=== PATIENT | male | born 1950 | race Caucasian/White ===

== ENCOUNTER 2017-09-14 21:55 | Inpatient (IN) ==
--- NOTE | 2017-09-14 23:29 | Emergency Department Note ---
Disposition Clinical Impression: Elevated troponin Pneumonia Qualifiers: Pneumonia type: due to unspecified organism Laterality: unspecified laterality Lung location: unspecified part of lung Qualified Code(s): J18.9 - Pneumonia, unspecified organism Disposition: Admitted As Inpatient Condition: Good [facility]Primary Care Provider[facility] - Forms: ED Satisfaction Letter General Adult HPI - General Chief complaint: ED Shortness of Breath/Dyspnea Stated complaint: elevated Trop Time Seen by Provider: 09/14/17 22:30 Source: patient Limitations: no limitations Nursing Notes Reviewed: Yes Vital Signs Reviewed: Yes - History of Present Illness HPI Narrative: 66-year-old female with a complaint of dyspnea and chest discomfort. He is not currently experiencing chest pain. He went to the [facility] who found he had an elevated troponin and symptoms emergency department. He has a past medical history of coronary arterial disease with a quadruple bypass a few years ago. He also does smoke. He also has a history of hypertension, COPD, diabetes, hyperlipidemia. He does take Plavix and aspirin. Pain Scale: 0 Consistency: constant Improves with: nothing Worsens with: other (exertion) Associated symptoms: Reports: denies other symptoms Treatments Prior to Arrival: none - Related Data Allergies Allergy/AdvReac Type Severity Reaction Status Date / Time No Known Allergies Allergy Verified 09/14/17 22:03 All systems ED: reviewed and negative except as stated. Constitutional: Denies: fever ENT ED: Denies: throat pain Cardiovascular: Reports: chest pain Respiratory: Reports: cough, dyspnea Gastrointestinal: Denies: abdominal pain Musculoskeletal: Denies: back pain Integumentary: Denies: rash Past Medical History - Past Medical History Medical history: Reports: COPD, coronary artery disease, diabetes, GERD, hyperlipidemia, hypertension, myocardial infarction Psychiatric history: Reports: depression, schizophrenia - Social History Smoking Status: Current every day smoker Alcohol use: Reports: none Drug use: Reports: none Physical Exam - General Limitations: no limitations General appearance: alert, in no apparent distress - Head Head exam: atraumatic - Eye Eye exam: Present: normal appearance, PERRL - ENT ENT exam: normal exam - Neck Neck exam: Present: normal inspection - Chest Chest inspection: Present: normal inspection - Respiratory Respiratory exam: Present: other (coarse lung sounds bilaterally). Absent: respiratory distress - Cardiovascular Cardiovascular exam: Present: regular rate, normal rhythm - Abdominal Exam Abdominal exam: Present: soft, Non-Tender - Extremities Exam Extremities exam: Present: normal inspection - Neurological Exam Neurological exam: Present: alert, oriented X3 - Psychiatric Psychiatric exam: Present: normal affect, normal mood - Skin Skin exam: Present: warm, dry Course Course Narrative: [facility] Trop[facility] was elevated. EKG shows normal sinus rhythm without ST deviation. We repeated lab work urine did show a troponin elevation of 0.07. His chest x- ray showing pneumonia. Troponin elevation may be due to his pneumonia. As such I will initially treat him with Levaquin and admitted to the hospital for serial troponin Vital Signs Temperature 98.1 F 09/14/17 21:57 Pulse Rate 95 09/14/17 21:57 Respiratory Rate 20 09/14/17 21:57 Blood Pressure 107/68 09/14/17 21:57 O2 Sat by Pulse Oximetry 95 09/14/17 21:57 Temperature 98.1 F 09/14/17 21:57 Pulse Rate 76 09/15/17 01:47 Respiratory Rate 14 09/15/17 01:47 Blood Pressure 130/52 09/15/17 01:47 O2 Sat by Pulse Oximetry 97 09/15/17 01:47 Oxygen Delivery Oxygen Delivery Nasal Cannula Medical Decision Making - Medical Records Medical records reviewed: Yes I reviewed the patient's medical records. - Lab Data Lab results reviewed: Yes I reviewed the patient's lab results. Result diagrams: 09/15/17 00:05 09/15/17 00:05 Lab Results 09/15/17 09/15/17 09/15/17 Range/Units 00:05 00:05 00:05 WBC 15.5 H (4.3-11.1) K/mcL RBC 3.57 L (4.19-5.50) M/mcL Hgb 10.9 L (12.9-16.9) g/dL Hct 32.2 L (37.5-50.1) % MCV 90.2 (83.0-100.0) fL MCH 30.5 (28.0-33.3) pg MCHC 33.9 (31.6-35.5) g/dL RDW 14.4 (11.5-14.5) % Plt Count 233 (140-400) K/mcL MPV 11.0 (9.4-12.4) fL Immature Gran % 0.9 (0-4) % Seg Neutrophils % 90.7 % Lymphocytes % 3.9 % Monocytes % 4.3 % Eosinophils % 0.0 % Basophils % 0.2 % Neutrophils # 14.0 H (1.6-8.9) K/mcL Lymphocytes # 0.6 (0.6-4.6) K/mcL Monocytes # 0.7 (0.0-1.3) K/mcL Eosinophils # 0.0 (0.0-0.6) K/mcL Basophils # 0.0 (0.0-0.2) K/mcL Nucleated RBCs/100 WBC 0.1 H (0) /100 WBC Sodium 131 L (136-145) mEq/L Potassium 4.1 (3.5-4.5) mEq/L Chloride 100 (98-109) mEq/L Carbon Dioxide 19 (19-29) mEq/L BUN 16 (8-26) mg/dL Creatinine 0.73 (0.72-1.25) mg/dL Est GFR ( Amer) > 60 (> 60) Est GFR (Non-Af Amer) > 60 (> 60) BUN/Creatinine Ratio 22 (6-26) Glucose 170 H (70-99) mg/dL Calculated Osmolality 277 L (280-300) Calcium 9.3 (8.6-10.8) mg/dL Troponin I 0.07 H* (0-0.03) ng/mL B-Natriuretic Peptide (0-100) pg/mL 09/15/17 Range/Units 00:05 WBC (4.3-11.1) K/mcL RBC (4.19-5.50) M/mcL Hgb (12.9-16.9) g/dL Hct (37.5-50.1) % MCV (83.0-100.0) fL MCH (28.0-33.3) pg MCHC (31.6-35.5) g/dL RDW (11.5-14.5) % Plt Count (140-400) K/mcL MPV (9.4-12.4) fL Immature Gran % (0-4) % Seg Neutrophils % % Lymphocytes % % Monocytes % % Eosinophils % % Basophils % % Neutrophils # (1.6-8.9) K/mcL Lymphocytes # (0.6-4.6) K/mcL Monocytes # (0.0-1.3) K/mcL Eosinophils # (0.0-0.6) K/mcL Basophils # (0.0-0.2) K/mcL Nucleated RBCs/100 WBC (0) /100 WBC Sodium (136-145) mEq/L Potassium (3.5-4.5) mEq/L Chloride (98-109) mEq/L Carbon Dioxide (19-29) mEq/L BUN (8-26) mg/dL Creatinine (0.72-1.25) mg/dL Est GFR ( Amer) (> 60) Est GFR (Non-Af Amer) (> 60) BUN/Creatinine Ratio (6-26) Glucose (70-99) mg/dL Calculated Osmolality (280-300) Calcium (8.6-10.8) mg/dL Troponin I (0-0.03) ng/mL B-Natriuretic Peptide 220 H (0-100) pg/mL - Radiology Data Radiology results reviewed: Yes I reviewed the patient's radiology results. - EKG Data EKG #1 EKG attestation: Yes I reviewed and interpreted this EKG. EKG shows normal: sinus rhythm Rate: normal Rhythm: NSR Interpretation: no acute changes Attestation Statement - Attestation Attestation: I, Siva Becker MD, personally evaluated this patient and discussed their management with the resident physician. I reviewed the resident's note and agree with the documented findings, medical decision making, and plan of care. 66-year-old male transferred here from the [facility] for an elevated troponin. Patient states he had a fall 4 days ago and was seen here at that time. Since then he has had some increasing shortness of breath and productive cough with clear sputum. No definite fever. Some intermittent chest pain. On examination patient is a well-developed well-nourished elderly male in no acute distress. He is alert and oriented 3. There is no cyanosis or diaphoresis. Breath sounds are decreased bilaterally with some right mid lung rales. Heart regular rate and rhythm. Abdomen is soft and nontender with normal bowel sounds. Labs reviewed. Troponin 0.07. Chest x-ray shows multifocal bilateral pneumonia. EKG shows a sinus rhythm with a rate of 94 in no acute ischemic changes. No significant change from prior EKG. The hospitalist, Dr. Santiago, was consulted and accepted admission of the patient.
[2017-09-15 00:32] LABS: Basophils % 0.2 %; Hematocrit 32.2 % (37.5-50.1); Hemoglobin 10.9 g/dL (12.9-16.9); Immature Granulocytes % 0.9 % (0-4); Lymphocytes # 0.6 K/mcL (0.6-4.6); Lymphocytes % 3.9 %; Mean Corpuscular HGB Conc 33.9 g/dL (31.6-35.5); Mean Corpuscular Hemoglobin 30.5 pg (28.0-33.3); Mean Corpuscular Volume 90.2 fL (83.0-100.0); Monocytes # 0.7 K/mcL (0.0-1.3); Monocytes % 4.3 %; Nucleated Red Blood Cells 0.1 /100 WBC (0); Platelet Count 233 K/mcL (140-400); Red Blood Count 3.57 M/mcL (4.19-5.50); Red Cell Distribution Width 14.4 % (11.5-14.5); Segmented Neutrophils % 90.7 %
[2017-09-15 00:43] LABS: BUN/Creatinine Ratio 22 (6-26); Blood Urea Nitrogen 16 mg/dL (8-26); Calcium 9.3 mg/dL (8.6-10.8); Carbon Dioxide 19 mEq/L (19-29); Chloride 100 mEq/L (98-109); Glucose 170 mg/dL (70-99); Osmolality,Calculated 277 (280-300); Potassium 4.1 mEq/L (3.5-4.5); Sodium 131 mEq/L (136-145); eGFR For African Americans > 60 (> 60); eGFR For Non-African Americans > 60 (> 60)
[2017-09-15] MEDS ORDERED: Levofloxacin 750 MG/150 ML 750 MG/150 ML BAG IVPB ONE (01:17)
[2017-09-15] MEDS ORDERED: *HR* Heparin 5,000 UNIT/ML VIAL IVP ONE (02:35)
[2017-09-15] MEDS ORDERED: *HR* Heparin 5,000 UNIT/ML VIAL IVP PRN ×2 (02:35)
[2017-09-15] MEDS ORDERED: Heparin 25,000 UNIT/500 ML D5W 25,000 UNIT/500 ML MLS IVC SCH (02:45)
--- NOTE | 2017-09-15 03:02 | Internal Med History&Physical ---
Date of Encounter: 09/15/17 Time of Encounter: 03:02 Assessment and Plan (1) COPD (chronic obstructive pulmonary disease) Current visit: Yes Status: Acute Stable no active wheezing. Continue nebulizer treatments. Qualifiers: Qualified Code(s): J44.9 - Chronic obstructive pulmonary disease, unspecified (2) Elevated troponin Current visit: Yes Status: Acute We will start the patient on heparin drip. EKG shows no ST-segment shifts. Cardiology consultation. (3) Pneumonia Current visit: Yes Status: Acute Levofloxacin. Check sputum culture Qualifiers: Pneumonia type: due to unspecified organism Laterality: unspecified laterality Lung location: unspecified part of lung Qualified Code(s): J18.9 - Pneumonia, unspecified organism Internal Medicine - H&P: HPI Chief complaint: sob History of present illness: Mr. Santoyo is a 66 year old male with a history of COPD, diabetes mellitus, hypertension, coronary artery disease status post cabg presents to the emergency room today with a main complain of shortness of breath and chest pain. Patient mentioned that 4 days ago he started experiencing shortness of breath with minimal exertion, productive, white sputum, subjective chills. Patient has also been having intermittent retrosternal chest pain. He went to the [facility] today and was transferred to our facility after cardiac markers were found to be elevated. Patient was chest pain free during my interview. Patient had his bypass surgery 3 years ago. Patient denies any swelling in his lower extremities. Past Med Surg Social Fam HX - Past Medical History Medical history: COPD, coronary artery disease, diabetes, GERD, hyperlipidemia, hypertension, myocardial infarction Psychiatric history: depression, schizophrenia - Social History Smoking Status: Current every day smoker Alcohol use: none Drug use: none Internal Medicine - H&P: Meds 3 Allergy/AdvReac Type Severity Reaction Status Date / Time No Known Allergies Allergy Verified 09/14/17 22:03 All Systems PM: A 10-system review of systems was performed and is negative for pertinent findings except as documented above in the HPI. Review of systems: 10 point review of systems is negative except for HPI - Constitutional Vitals: Temp Pulse Resp BP Pulse Ox 98.6 F 77 16 140/66 95 09/15/17 02:42 09/15/17 02:42 09/15/17 02:42 09/15/17 02:42 09/15/17 02:42 Exam: General: Patient is A&O X3 Cardiac: normal S1, S2, no additional sounds or murmurs Chest: crackles in right base Abdomen: soft, nontender, non distended, normal BS. Neuro: No focal deficits Internal Med - H&P Results - Labs CBC & Chem 7: 09/15/17 00:05 09/15/17 00:05
[2017-09-15] MEDS ORDERED: 0.9 % Sodium Chloride 250 ML ONE (03:40)
[2017-09-15 04:50] LABS: Hemoglobin 10.8 g/dL (12.9-16.9); Mean Corpuscular HGB Conc 33.8 g/dL (31.6-35.5); Mean Corpuscular Hemoglobin 30.7 pg (28.0-33.3); Mean Corpuscular Volume 90.9 fL (83.0-100.0); Mean Platelet Volume 11.1 fL (9.4-12.4); Platelet Count 231 K/mcL (140-400); Red Blood Count 3.52 M/mcL (4.19-5.50); Red Cell Distribution Width 14.5 % (11.5-14.5)
[2017-09-15 04:56] LABS: INR 1.4; Prothrombin Time 15.6 Seconds (9.4-12.1)
[2017-09-15 04:59] LABS: Activated Partial Thrombo Time 27.4 Seconds (26.0-36.0)
[2017-09-15] MEDS: Insulin LISPRO 300 UNITS/3 ML VIAL SQ SCH ×4 (08:44→21:42)
[2017-09-15] MEDS: Famotidine 20 MG TABLET PO SCH ×2 (08:44→17:16)
[2017-09-15] MEDS: Levofloxacin 750 MG/150 ML 750 MG/150 ML BAG IVPB SCH (08:45)
[2017-09-15] MEDS ORDERED: Aspirin 325 MG TABLET PO SCH (09:00)
[2017-09-15] MEDS ORDERED: Famotidine 20 MG/2 ML VIAL IVP SCH (09:00)
[2017-09-15] MEDS ORDERED: Nitroglycerin 0.4 MG TAB.SUBL SL PRN (10:19)
[2017-09-15] MEDS ORDERED: Albuterol 2.5 MG/3 ML NEBULIZER IH PRN (10:19)
[2017-09-15] MEDS: Ipratropium/Albuterol Neb 3 ML IH SCH ×3 (11:47→22:18)
[2017-09-15] MEDS ORDERED: Dextrose Gel 15 GM PO PRN ×2 (11:51)
[2017-09-15] MEDS ORDERED: *HR* Dextrose 50 % in Water (Syg) 50 ML SYRINGE IVP PRN (11:51)
[2017-09-15] MEDS ORDERED: D5% in Water 1,000 ML IVC PRN (11:51)
[2017-09-15] MEDS: methylPREDNISolone 125 MG/2 ML VIAL IVP SCH (12:01)
[2017-09-15] MEDS: Nicotine 21 MG PATCH.TD24 TD SCH (12:01)
--- NOTE | 2017-09-15 13:15 | Cardiology Consult Note ---
Date of Encounter: 09/15/17 Time of Encounter: 13:04 Assessment and Plan (1) Elevated troponin Current Visit: Yes Status: Acute CP most likley from trauma during fall or Demand Ischemia from Pneumonia/Acute exacerbation of COPD, and less likely due to ACS. patient has SOB and CP, which have improved with breathing treatments. CXR: patchy opacities w/in lungs bilaterally suggesting multifocal pneumonia. Trops 0.07, 0.07 and 0.05. BNP 220. EKG shows no ischemic changes w/ nonspecific ST and T wave abnormalities. Risks include age, current smoker, diabetes, HTN, CAD w/ CABG 3 years ago. HEART score 7 - risk of MACE 50-65%. - echo pending - continue ASA 81, Plavix 75, metoprolol 25 mg BID, and nitro as needed. (2) Pneumonia Current Visit: Yes Status: Acute per management of medicine team Qualifiers: Pneumonia type: due to unspecified organism Laterality: unspecified laterality Lung location: unspecified part of lung Qualified Code(s): J18.9 - Pneumonia, unspecified organism (3) COPD (chronic obstructive pulmonary disease) Current Visit: Yes Status: Acute per management of medicine team Qualifiers: Qualified Code(s): J44.9 - Chronic obstructive pulmonary disease, unspecified Discussion w patient/family: The assessment and plan as outlined above was discussed with the patient and/or family members who expressed understanding and agreement. All questions were answered. Thank you for involving us in the care of your patient. Please call with any questions. History of Present Illness Consult date: 09/15/17 Requesting physician: Rogelio Santiago Consult reason: elevated troponin Chief complaint: SOB/CP History of present illness: Mr. Santoyo is a 66 year old male w/ hx of COPD, T2DM, HTN, CAD w/ CABG 3 years ago, and current smoker who has had SOB and CP since he fell on 09/10/17. Cardiology is consulted due to elevated trops and BNP. Pain started on 09/10/17 when he became SOB at rest and tried to get up and fell. he states that he has pneumonia and he He was then brought to ED and started on [id number], Plavix, and heparin. He's never had similar pain in the past, he says it's different feeling then the time he had chest pain and had the CABG. Pain is described as sharp-tight retrosternal pain, located at the lower end of his sternum. Patient also states that he has COPD and has had pneumonia before he fell. He' s had diffuse chest tightness since having pneumonia. Patient denies radiation of pain, diaphoresis, Orthopnea. Patient also reports of having bipolar, and has visual and audio hallucinations. He stopped taking his psych meds 1.5 months ago because he didn 't like his psychiatrist at the [facility]. Patient was unsure of which [facility] meds he takes He continues to go to counseling. Past Med Surg Social Fam HX - Past Medical History Medical history: COPD, coronary artery disease, diabetes, GERD, hyperlipidemia, hypertension, myocardial infarction Psychiatric history: depression, schizophrenia - Social History Smoking Status: Current every day smoker Packs per day: 4 cigs Alcohol use: none Drug use: none Medications and Allergies Albuterol Sulfate [Albuterol Inhaler] 2 puff IH Q6H PRN 09/15/17 [History] Aspirin [Lo-Dose Aspirin EC] 81 mg PO DAILY 09/15/17 [History] Budesonide/Formoterol 80/4.5 [Symbicort 80/4.5] 2 puff IH BIDR 09/15/17 [ History] Cholecalciferol (Vitamin D3) [Vitamin D] 1,000 unit PO DAILY 09/15/17 [History] Clopidogrel [Plavix] 75 mg PO DAILY 09/15/17 [History] Cyclobenzaprine HCl 5 mg PO TID PRN 09/15/17 [History] Fluticasone Propionate Nasal [Flonase] 2 spr NS DAILY 09/15/17 [History] Lisinopril [Zestril] 20 mg PO DAILY 09/15/17 [History] Magnesium Oxide [Magnesium] 400 mg PO BID 09/15/17 [History] Metoprolol Succinate 25 mg PO DAILY 09/15/17 [History] Multivit-Min/FA/Lycopen/Lutein [A Thru Z Select Multivit Tab] 1 tab PO DAILY 07/24 [History] Omeprazole [PriLOSEC] 40 mg PO DAILY 09/15/17 [History] Ondansetron HCl [Zofran] 4 mg PO TID PRN 09/15/17 [History] Sertraline [Zoloft] 25 mg PO BID 09/15/17 [History] Tiotropium [Spiriva] 1 puff IH DAILY 09/15/17 [History] amLODIPine [Norvasc] 5 mg PO DAILY 09/15/17 [History] hydrOXYzine pamoate [HydrOXYzine Pamoate] 25 mg PO BID PRN 09/15/17 [History] metFORMIN [Glucophage] 500 mg PO BIDWM 09/15/17 [History] 3 Allergy/AdvReac Type Severity Reaction Status Date / Time No Known Allergies Allergy Verified 09/14/17 22:03 All Systems Review: A 10-system review of systems was performed and is negative for pertinent findings except as documented above in the HPI. - Constitutional Constitutional: malaise, weakness, no anorexia, no chills, no daytime sleepiness , no fever(s) - Cardiovascular Cardiovascular: as per HPI - Respiratory Respiratory: cough, dyspnea, no hemoptysis, no wheezing - Gastrointestinal Gastrointestinal: no abdominal pain - Integumentary Integumentary: no erythema, no rash, no unusual bruising - Neurological Neurological: dizziness, no abnormal speech, no focal weakness, no loss of vision, no memory loss, no numbness - Psychiatric Psychiatric: hallucinations, no anxiety, no depression Physical Examination Vital Signs, Last 4 Hours Temp Pulse Resp BP Pulse Ox 09/15/17 11:48 18 95 09/15/17 11:03 97.8 F 74 16 130/65 93 General: Conversant, No Apparent Distress HEENT: Atraumatic, Normocephaly, Mucus Membranes Moist Neck: No JVD, Normal carotid pulses Cardiac: Other (2/5 systolic murmur noted at [place], and 5th IC on left) Lungs: Other (expiratory wheezes heard on base of lungs bilaterally) Neuro: Alert and responsive Abdomen: Soft, Non-Tender Skin: No rashes noted on visualized skin Musculoskeletal: No Chest Wall Tenderness Extremities: No Clubbing, No Cyanosis, No Edema, Normal Pulses Results 09/15/17 03:19 09/15/17 00:05 Lab Results 09/15/17 09/15/17 09/15/17 03:19 03:19 03:19 WBC 17.1 H Hgb 10.8 L Hct 32.0 L Plt Count 231 INR 1.4 APTT 27.4 Troponin I 0.07 H* 09/15/17 09/15/17 10:08 10:08 WBC Hgb Hct Plt Count INR APTT 38.1 H Troponin I 0.05 H* Consult Discharge Plan - Plan [facility]errals: [facility] [Primary Care Provider] -
--- NOTE | 2017-09-15 15:19 | Internal Med Progress Note ---
Date of Encounter: 09/15/17 Time of Encounter: 15:16 - Assessment and plan (1) Pneumonia Current Visit: Yes Status: Acute Qualifiers: Pneumonia type: due to unspecified organism Laterality: unspecified laterality Lung location: unspecified part of lung Qualified Code(s): J18.9 - Pneumonia, unspecified organism (2) COPD (chronic obstructive pulmonary disease) Current Visit: Yes Status: Acute Qualifiers: COPD type: COPD with acute exacerbation Qualified Code(s): J44.1 - Chronic obstructive pulmonary disease with (acute) exacerbation (3) Chest pain Current Visit: Yes Status: Acute Qualifiers: Chest pain type: unspecified Qualified Code(s): R07.9 - Chest pain, unspecified (4) Coronary artery disease Current Visit: Yes Status: Acute Qualifiers: Coronary Disease-Associated Artery/Lesion type: [place] artery [place] vs. transplanted heart: [place] heart Associated angina: without angina Qualified Code(s): I25.10 - Atherosclerotic heart disease of [place] coronary artery without angina pectoris (5) Diabetes Current Visit: Yes Status: Acute Qualifiers: Diabetes mellitus type: type 2 Diabetes mellitus complication status: with other specified complication Diabetes mellitus oysterman insulin use: without nursing home use Qualified Code(s): E11.69 - Type 2 diabetes mellitus with other specified complication - Subjective Interval history: Admitted for chest pain noted to have positive troponin and was started on IV heparin by admitting team. However troponins remained flat and it was thought this could be secondary to demand ischemia therefore IV heparin has been stopped. I have added beta maggy to his aspirin considering the fact that he has history of CABG in the past. Nitroglycerin when necessary. Echocardiogram ordered which is pending. Cardiology is consulted. Patient is noted to have bilateral pneumonia and I will add Flagyl to his IV Levaquin. Also noted to have COPD and will add nebulizers. Apparently chest pain has improved after taking nebulizers. Patient has diabetes and hypertension dyslipidemia. Also has history of bipolar disorder but currently has stopped taking medication. He is still receiving counseling as outpatient. - Constitutional Vitals: Temp Pulse Resp BP Pulse Ox 97.8 F 74 18 130/65 95 09/15/17 11:03 09/15/17 11:03 09/15/17 11:48 09/15/17 11:03 09/15/17 11:48 General appearance: Present: A&O X 3, no acute distress, answers questions appropriately - Head Head exam: Present: atraumatic, normocephalic - Eye Eye exam: Present: PERRL, conjuntiva pink, sclera anicteric Pupils: Present: PERRL - Neck Neck exam general surgery: Present: supple, trachea midline. Absent: lymphadenopathy - Respiratory Respiratory exam: Present: CTAB. Absent: accessory muscle use, rales, rhonchi, wheezes - Cardiovascular Cardiovascular exam: Present: RRR, +S1, +S2. Absent: diastolic murmur, gallop, rubs, systolic murmur - GI/Abdominal GI/Abdominal exam: Present: normal bowel sounds, soft, no peritoneal signs. Absent: distended, tenderness - Extremities Exam Extremities exam: Present: warm, radial pulses palpable and symmetrical. Absent : calf tenderness, cyanotic, pedal edema - Neurological Exam Neurological exam: Present: CN II-XII intact, oriented X3, no focal deficits. Absent: pronater drift, facial droop, speech deficit - Skin Skin exam: Present: dry, intact Internal Medicine: Result - Labs CBC & Chem 7: 09/15/17 03:19 09/15/17 00:05 Labs: Short CBC 09/15/17 Range/Units 03:19 WBC 17.1 H (4.3-11.1) K/mcL Hgb 10.8 L (12.9-16.9) g/dL Hct 32.0 L (37.5-50.1) % Plt Count 231 (140-400) K/mcL Cardiac Enzymes 09/15/17 09/15/17 Range/Units 03:19 10:08 Troponin I 0.07 H* 0.05 H* (0-0.03) ng/mL - ABG Interpretation ABG results: PT/INR, D-dimer PT 15.6 Seconds (9.4-12.1) H 09/15/17 03:19 Consult Discharge Plan - Plan [facility]errals: [facility] [Primary Care Provider] -
[2017-09-15] MEDS ORDERED: methylPREDNISolone 125 MG/2 ML VIAL IVP SCH (16:00)
[2017-09-15] MEDS: MetroNIDAZOLE 500 MG/100 ML 500 MG/100 ML BAG IVPB SCH (17:16)
--- NOTE | 2017-09-15 18:18 | Electrocardiograph Report ---
[place] [id number] Test Date: 2017-09-14 Pat Name: Buddy Santoyo Department: 103 Room: 2A Gender: M Bond Analyst: LULY : 1950 Requested By: Joss Valadez Order Number: [id number] Reading MD: Brian Sarabia MD Measurements Intervals [place] Rate: 94 P: -34 WV: 147 QRS: -16 QRSD: 102 T: 70 QT: 357 QTc: 408 Interpretive Statements SINUS RHYTHM LEFT ATRIAL ENLARGEMENT INFERIOR MYOCARDIAL INFARCTION, PROBABLY OLD Electronically Signed On 09-15-2017 18:17:02 EST by Brian Sarabia MD
[2017-09-16] MEDS: MetroNIDAZOLE 500 MG/100 ML 500 MG/100 ML BAG IVPB SCH ×4 (00:09→23:28)
[2017-09-16] MEDS: methylPREDNISolone 125 MG/2 ML VIAL IVP SCH ×3 (00:09→23:28)
[2017-09-16 03:36] LABS: Basophils % 0.1 %; Hemoglobin 11.1 g/dL (12.9-16.9); Immature Granulocytes % 0.8 % (0-4); Lymphocytes # 1.2 K/mcL (0.6-4.6); Lymphocytes % 6.7 %; Mean Corpuscular HGB Conc 33.6 g/dL (31.6-35.5); Mean Corpuscular Hemoglobin 30.2 pg (28.0-33.3); Mean Corpuscular Volume 89.9 fL (83.0-100.0); Mean Platelet Volume 10.6 fL (9.4-12.4); Monocytes # 1.1 K/mcL (0.0-1.3); Platelet Count 268 K/mcL (140-400); Red Blood Count 3.67 M/mcL (4.19-5.50); Red Cell Distribution Width 14.6 % (11.5-14.5); Segmented Neutrophils % 86.4 %
[2017-09-16 03:51] LABS: Hemoglobin A1C 5.2 %
[2017-09-16 03:58] LABS: Chol/HDL Ratio 4.1 (0-4.9)
[2017-09-16 03:59] LABS: Alanine Aminotransferase 13 Units/L (0-55); Albumin 3.1 g/dL (3.5-5.0); Albumin/Globulin Ratio 0.9 (1.1-2.2); Alkaline Phosphatase 86 Units/L (38-126); Aspartate Amino Transferase 21 Units/L (5-34); BUN/Creatinine Ratio 31 (6-26); Bilirubin,Total 0.9 mg/dL (0.2-1.2); Blood Urea Nitrogen 24 mg/dL (8-26); Calcium 9.5 mg/dL (8.6-10.8); Carbon Dioxide 24 mEq/L (19-29); Chloride 98 mEq/L (98-109); Globulin 3.6 g/dL (2.4-3.5); Glucose 144 mg/dL (70-99); Osmolality,Calculated 279 (280-300); Potassium 3.8 mEq/L (3.5-4.5); Sodium 131 mEq/L (136-145); Total Protein 6.7 g/dL (6.0-8.3); eGFR For African Americans > 60 (> 60); eGFR For Non-African Americans > 60 (> 60)
[2017-09-16] MEDS: Ipratropium/Albuterol Neb 3 ML IH SCH ×4 (04:27→23:15)
[2017-09-16] MEDS: Insulin LISPRO 300 UNITS/3 ML VIAL SQ SCH ×4 (08:40→22:11)
[2017-09-16] MEDS: Nicotine 21 MG PATCH.TD24 TD SCH (08:40)
[2017-09-16] MEDS: Aspirin Enteric Coated 81 MG Tablet PO SCH (08:40)
[2017-09-16] MEDS: Famotidine 20 MG TABLET PO SCH ×2 (08:40→16:11)
[2017-09-16] MEDS: Levofloxacin 750 MG/150 ML 750 MG/150 ML BAG IVPB SCH (08:43)
--- NOTE | 2017-09-16 15:44 | Internal Med Progress Note ---
Date of Encounter: 09/16/17 Time of Encounter: 15:43 - Assessment and plan (1) Pneumonia Current Visit: Yes Status: Acute Qualifiers: Pneumonia type: due to unspecified organism Laterality: unspecified laterality Lung location: unspecified part of lung Qualified Code(s): J18.9 - Pneumonia, unspecified organism (2) COPD (chronic obstructive pulmonary disease) Current Visit: Yes Status: Acute Qualifiers: COPD type: COPD with acute exacerbation Qualified Code(s): J44.1 - Chronic obstructive pulmonary disease with (acute) exacerbation (3) Chest pain Current Visit: Yes Status: Acute Qualifiers: Chest pain type: unspecified Qualified Code(s): R07.9 - Chest pain, unspecified (4) Coronary artery disease Current Visit: Yes Status: Acute Qualifiers: Coronary Disease-Associated Artery/Lesion type: [place] artery [place] vs. 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 However troponins remained flat and it was thought this could be secondary to demand ischemia therefore IV heparin has been stopped. I have added beta maggy to his aspirin considering the fact that he has history of CABG in the past. Nitroglycerin when necessary. Echocardiogram ordered which is pending. Cardiology is consulted. Patient is noted to have bilateral pneumonia and I will add Flagyl to his IV Levaquin. Also noted to have COPD and will add nebulizers. Apparently chest pain has improved after taking nebulizers. Patient has diabetes and hypertension dyslipidemia. Also has history of bipolar disorder but currently has stopped taking medication. He is still receiving counseling as outpatient. 09/16 overall some improvement. Does not have any chest pain. Still on oxygen. Continue current treatment. - Constitutional Vitals: Temp Pulse Resp BP Pulse Ox 97.4 F L 63 17 150/61 99 09/16/17 10:45 09/16/17 10:45 09/16/17 10:45 09/16/17 10:45 09/16/17 10:45 General appearance: Present: A&O X 3, no acute distress, answers questions appropriately - Head Head exam: Present: atraumatic, normocephalic - Eye Eye exam: Present: PERRL, conjuntiva pink, sclera anicteric Pupils: Present: PERRL - Neck Neck exam general surgery: Present: supple, trachea midline. Absent: lymphadenopathy - Respiratory Respiratory exam: Present: CTAB, wheezes. Absent: accessory muscle use, rales, rhonchi - Cardiovascular Cardiovascular exam: Present: RRR, +S1, +S2. Absent: diastolic murmur, gallop, rubs, systolic murmur - GI/Abdominal GI/Abdominal exam: Present: normal bowel sounds, soft, no peritoneal signs. Absent: distended, tenderness - Extremities Exam Extremities exam: Present: warm, radial pulses palpable and symmetrical. Absent : calf tenderness, cyanotic, pedal edema - Neurological Exam Neurological exam: Present: CN II-XII intact, oriented X3, no focal deficits. Absent: pronater drift, facial droop, speech deficit - Skin Skin exam: Present: dry, intact Internal Medicine: Result - Labs CBC & Chem 7: 09/16/17 02:36 09/16/17 02:36 Labs: Short CBC 09/16/17 Range/Units 02:36 WBC 18.5 H (4.3-11.1) K/mcL Hgb 11.1 L (12.9-16.9) g/dL Hct 33.0 L (37.5-50.1) % Plt Count 268 (140-400) K/mcL Neutrophils # 16.0 H (1.6-8.9) K/mcL BMP 09/16/17 02:36 Sodium 131 L Potassium 3.8 Chloride 98 Carbon Dioxide 24 BUN 24 Creatinine 0.77 Glucose 144 H Calcium 9.5 Cardiac Enzymes 09/15/17 Range/Units 16:04 Troponin I 0.05 H* (0-0.03) ng/mL Liver Function 09/16/17 Range/Units 02:36 Total Bilirubin 0.9 (0.2-1.2) mg/dL AST 21 (5-34) Units/L ALT 13 (0-55) Units/L Alkaline Phosphatase 86 (38-126) Units/L Albumin 3.1 L (3.5-5.0) g/dL - ABG Interpretation ABG results: PT/INR, D-dimer PT 15.6 Seconds (9.4-12.1) H 09/15/17 03:19 - Impressions Impressions Echocardiogram 09/15/17 10:24 Impressions: LVEF 60%. Normal LV chamber size and function. Mild left ventricular diastolic dysfunction. Mild concentric left ventricular hypertrophy. Atypical septal motion consistent with post-operative status. Normal right ventricular structure and function. Aortic valve not well visualized. Grossly, the aortic valve appears mildly calcified. Grossly, mild-moderate aortic regurgitation, which was not well visualized and could be underestimated. Mild aortic stenosis. Mean gradient 14 mmHg. Moderate mitral annular calcification. Mild mitral stenosis. Mean gradient 5 mmHg. Unable to estimate RVSP due to lack of TR jet. Left Ventricular Wall Motion: Rest Echo Findings All wall segments showed normal motion. Findings: Study Quality * Technically adequate exam. ECG Findings * Normal sinus rhythm. Left Ventricle * LVEF 60%. * Normal LV chamber size and function. * Mild left ventricular diastolic dysfunction. * Mild concentric left ventricular hypertrophy. * Atypical septal motion consistent with post-operative status. Right Ventricle * Normal right ventricular structure and function. Left Atrium * Moderately dilated left atrium. Right Atrium * Normal right atrial size. Interatrial Septum * Interatrial septum not well evaluated. Aortic Valve * Aortic valve not well visualized. * Grossly, the aortic valve appears mildly calcified. * Grossly, mild-moderate aortic regurgitation, which was not well visualized and could be underestimated. * Mild aortic stenosis. Mean gradient 14 mmHg. Mitral Valve * Moderate mitral annular calcification. * No mitral regurgitation. * Mild mitral stenosis. Mean gradient 5 mmHg. Tricuspid Valve * Tricuspid valve not well visualized. * No tricuspid regurgitation. * Unable to estimate RVSP due to lack of TR jet. Pulmonic Valve * Pulmonic valve not well visualized. Aorta * Normally sized aortic root. Pericardium * The pericardium appears normal. IVC * The IVC is not well evaluated. Pulmonary Artery * Pulmonary artery not well visualized. Consult Discharge Plan - Plan [facility]errals: [facility] [Primary Care Provider] -
[2017-09-17] MEDS: Ipratropium/Albuterol Neb 3 ML IH SCH ×4 (05:22→23:12)
[2017-09-17 06:44] LABS: Basophils % 0.2 %; Hematocrit 30.9 % (37.5-50.1); Hemoglobin 10.2 g/dL (12.9-16.9); Immature Granulocytes % 2.1 % (0-4); Lymphocytes # 1.5 K/mcL (0.6-4.6); Lymphocytes % 7.8 %; Mean Corpuscular Hemoglobin 29.9 pg (28.0-33.3); Mean Corpuscular Volume 90.6 fL (83.0-100.0); Mean Platelet Volume 10.4 fL (9.4-12.4); Monocytes % 5.3 %; Neutrophils # 16.1 K/mcL (1.6-8.9); Nucleated Red Blood Cells 0.1 /100 WBC (0); Platelet Count 255 K/mcL (140-400); Red Blood Count 3.41 M/mcL (4.19-5.50); Red Cell Distribution Width 14.6 % (11.5-14.5); Segmented Neutrophils % 84.6 %
[2017-09-17 06:59] LABS: Alanine Aminotransferase 19 Units/L (0-55); Albumin 2.8 g/dL (3.5-5.0); Albumin/Globulin Ratio 0.8 (1.1-2.2); Alkaline Phosphatase 72 Units/L (38-126); Aspartate Amino Transferase 18 Units/L (5-34); BUN/Creatinine Ratio 31 (6-26); Bilirubin,Total 0.7 mg/dL (0.2-1.2); Blood Urea Nitrogen 24 mg/dL (8-26); Calcium 8.6 mg/dL (8.6-10.8); Carbon Dioxide 22 mEq/L (19-29); Chloride 101 mEq/L (98-109); Globulin 3.3 g/dL (2.4-3.5); Glucose 167 mg/dL (70-99); Osmolality,Calculated 282 (280-300); Potassium 4.2 mEq/L (3.5-4.5); Sodium 132 mEq/L (136-145); Total Protein 6.1 g/dL (6.0-8.3); eGFR For African Americans > 60 (> 60); eGFR For Non-African Americans > 60 (> 60)
[2017-09-17] MEDS: Insulin LISPRO 300 UNITS/3 ML VIAL SQ SCH ×4 (08:31→20:29)
[2017-09-17] MEDS: Nicotine 21 MG PATCH.TD24 TD SCH (08:32)
[2017-09-17] MEDS: Famotidine 20 MG TABLET PO SCH ×2 (08:32→16:40)
[2017-09-17] MEDS: Levofloxacin 750 MG/150 ML 750 MG/150 ML BAG IVPB SCH (08:32)
[2017-09-17] MEDS: Aspirin Enteric Coated 81 MG Tablet PO SCH (08:32)
[2017-09-17] MEDS: MetroNIDAZOLE 500 MG/100 ML 500 MG/100 ML BAG IVPB SCH (08:33)
[2017-09-17] MEDS: methylPREDNISolone 125 MG/2 ML VIAL IVP SCH (11:29)
--- NOTE | 2017-09-17 12:46 | Internal Med Progress Note ---
Date of Encounter: 09/17/17 Time of Encounter: 12:43 - Assessment and plan (1) Pneumonia Current Visit: Yes Status: Acute Qualifiers: Pneumonia type: due to unspecified organism Laterality: unspecified laterality Lung location: unspecified part of lung Qualified Code(s): J18.9 - Pneumonia, unspecified organism (2) COPD (chronic obstructive pulmonary disease) Current Visit: Yes Status: Acute Qualifiers: COPD type: COPD with acute exacerbation Qualified Code(s): J44.1 - Chronic obstructive pulmonary disease with (acute) exacerbation (3) Chest pain Current Visit: Yes Status: Acute Qualifiers: Chest pain type: unspecified Qualified Code(s): R07.9 - Chest pain, unspecified (4) Coronary artery disease Current Visit: Yes Status: Acute Qualifiers: Coronary Disease-Associated Artery/Lesion type: [place] artery [place] vs. 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 However troponins remained flat and it was thought this could be secondary to demand ischemia therefore IV heparin has been stopped. I have added beta maggy to his aspirin considering the fact that he has history of CABG in the past. Nitroglycerin when necessary. Echocardiogram ordered which is pending. Cardiology is consulted. Patient is noted to have bilateral pneumonia and I will add Flagyl to his IV Levaquin. Also noted to have COPD and will add nebulizers. Apparently chest pain has improved after taking nebulizers. Patient has diabetes and hypertension dyslipidemia. Also has history of bipolar disorder but currently has stopped taking medication. He is still receiving counseling as outpatient. 09/16 overall some improvement. Does not have any chest pain. Still on oxygen. Continue current treatment. 09/17 patient has improved ambulating well. Change all medications to oral. Prednisone and antibiotics as started. We will see if he tolerates oral steroid well. May discharge in 1-2 days. - Constitutional Vitals: Temp Pulse Resp BP Pulse Ox 97.7 F 68 18 130/66 98 09/17/17 10:53 09/17/17 10:53 09/17/17 10:53 09/17/17 10:53 09/17/17 10:53 General appearance: Present: A&O X 3, no acute distress, answers questions appropriately - Head Head exam: Present: atraumatic, normocephalic - Eye Eye exam: Present: PERRL, conjuntiva pink, sclera anicteric Pupils: Present: PERRL - Neck Neck exam general surgery: Present: supple, trachea midline. Absent: lymphadenopathy - Respiratory Respiratory exam: Present: CTAB. Absent: accessory muscle use, rales, rhonchi, wheezes - Cardiovascular Cardiovascular exam: Present: RRR, +S1, +S2. Absent: diastolic murmur, gallop, rubs, systolic murmur - GI/Abdominal GI/Abdominal exam: Present: normal bowel sounds, soft, no peritoneal signs. Absent: distended, tenderness - Extremities Exam Extremities exam: Present: warm, radial pulses palpable and symmetrical. Absent : calf tenderness, cyanotic, pedal edema - Neurological Exam Neurological exam: Present: CN II-XII intact, oriented X3, no focal deficits. Absent: pronater drift, facial droop, speech deficit - Skin Skin exam: Present: dry, intact Internal Medicine: Result - Labs CBC & Chem 7: 09/17/17 06:26 09/17/17 06:26 Labs: Short CBC 09/17/17 Range/Units 06:26 WBC 19.0 H (4.3-11.1) K/mcL Hgb 10.2 L (12.9-16.9) g/dL Hct 30.9 L (37.5-50.1) % Plt Count 255 (140-400) K/mcL Neutrophils # 16.1 H (1.6-8.9) K/mcL BMP 09/17/17 06:26 Sodium 132 L Potassium 4.2 Chloride 101 Carbon Dioxide 22 BUN 24 Creatinine 0.78 Glucose 167 H Calcium 8.6 Liver Function 09/17/17 Range/Units 06:26 Total Bilirubin 0.7 (0.2-1.2) mg/dL AST 18 (5-34) Units/L ALT 19 (0-55) Units/L Alkaline Phosphatase 72 (38-126) Units/L Albumin 2.8 L (3.5-5.0) g/dL - ABG Interpretation ABG results: PT/INR, D-dimer PT 15.6 Seconds (9.4-12.1) H 09/15/17 03:19 Consult Discharge Plan - Plan [facility]errals: [facility] [Primary Care Provider] -
[2017-09-17] MEDS: metroNIDAZOLE 500 MG TABLET PO SCH ×2 (14:33→20:33)
[2017-09-17] MEDS: predniSONE 20 MG TABLET PO SCH (14:33)
[2017-09-18 03:14] LABS: CK-BB (CK isoenzymes) 3 % (0-0); CK-MB (CK isoenzymes) 0 % (0-4); CK-MM (CK-isoenzymes) 97 % (96-100)
[2017-09-18 03:14] LABS: CK-BB (CK isoenzymes) 0 % (0-0); CK-MB (CK isoenzymes) 0 % (0-4); CK-MM (CK-isoenzymes) 100 % (96-100)
[2017-09-18 03:20] LABS: Hemoglobin 10.9 g/dL (12.9-16.9); Mean Corpuscular HGB Conc 34.1 g/dL (31.6-35.5); Mean Corpuscular Hemoglobin 31.1 pg (28.0-33.3); Mean Corpuscular Volume 91.4 fL (83.0-100.0); Mean Platelet Volume 10.2 fL (9.4-12.4); Nucleated Red Blood Cells 0.2 /100 WBC (0); Platelet Count 255 K/mcL (140-400); Red Cell Distribution Width 14.6 % (11.5-14.5)
[2017-09-18 03:40] LABS: Lymphocytes # 2.3 K/mcL (0.6-4.6); Monocytes # 1.1 K/mcL (0.0-1.3); Neutrophils # 15.1 K/mcL (1.6-8.9); Platelet Estimate Normal (Normal); Polychromasia 1+ (Not Present)
[2017-09-18] MEDS: Ipratropium/Albuterol Neb 3 ML IH SCH ×2 (04:56→10:42)
[2017-09-18 05:08] LABS: Alanine Aminotransferase 18 Units/L (0-55); Albumin 3.1 g/dL (3.5-5.0); Alkaline Phosphatase 78 Units/L (38-126); Aspartate Amino Transferase 18 Units/L (5-34); BUN/Creatinine Ratio 27 (6-26); Bilirubin,Total 0.6 mg/dL (0.2-1.2); Blood Urea Nitrogen 20 mg/dL (8-26); Calcium 8.9 mg/dL (8.6-10.8); Carbon Dioxide 25 mEq/L (19-29); Chloride 101 mEq/L (98-109); Globulin 3.1 g/dL (2.4-3.5); Glucose 121 mg/dL (70-99); Osmolality,Calculated 276 (280-300); Potassium 4.3 mEq/L (3.5-4.5); Sodium 131 mEq/L (136-145); Total Protein 6.2 g/dL (6.0-8.3); eGFR For African Americans > 60 (> 60); eGFR For Non-African Americans > 60 (> 60)
[2017-09-18] MEDS: Nicotine 21 MG PATCH.TD24 TD SCH (08:58)
[2017-09-18] MEDS: Insulin LISPRO 300 UNITS/3 ML VIAL SQ SCH (08:58)
[2017-09-18] MEDS: Famotidine 20 MG TABLET PO SCH (08:59)
[2017-09-18] MEDS: Aspirin Enteric Coated 81 MG Tablet PO SCH (08:59)
[2017-09-18] MEDS: predniSONE 20 MG TABLET PO SCH (08:59)
[2017-09-18] MEDS: metroNIDAZOLE 500 MG TABLET PO SCH (08:59)
[2017-09-18] MEDS ORDERED: levoFLOXacin 750 MG TABLET PO SCH (09:00)
--- NOTE | 2017-09-18 11:49 | Discharge Summary ---
Date of Encounter: 09/18/17 Time of Encounter: 11:47 - Discharge Diagnosis (1) Pneumonia Priority: Primary Status: Acute Qualifiers: Pneumonia type: due to unspecified organism Laterality: unspecified laterality Lung location: unspecified part of lung Qualified Code(s): J18.9 - Pneumonia, unspecified organism (2) COPD (chronic obstructive pulmonary disease) Priority: Primary Status: Acute Qualifiers: COPD type: COPD with acute exacerbation Qualified Code(s): J44.1 - Chronic obstructive pulmonary disease with (acute) exacerbation (3) Chest pain Priority: Secondary Status: Acute Qualifiers: Chest pain type: unspecified Qualified Code(s): R07.9 - Chest pain, unspecified (4) Coronary artery disease Priority: Secondary Status: Acute Qualifiers: Coronary Disease-Associated Artery/Lesion type: [place] artery [place] vs. 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 Qualified Code(s): E11.69 - Type 2 diabetes mellitus with other specified complication - Discharge Medications Prescriptions: Nitroglycerin 0.4 mg SL Q5MIN PRN #20 tab.subl PRN Reason: Chest Pain Albuterol Sulfate [Albuterol Inhaler] 2 puff IH Q6H #1 inhaler levoFLOXacin [Levaquin] 750 mg PO DAILY #6 tablet Metoprolol [Lopressor] 25 mg PO BID #60 tablet metroNIDAZOLE [Flagyl] 500 mg PO TID #20 tablet predniSONE [PredniSONE] 10 mg PO DAILY #28 tablet Home Medications: Budesonide/Formoterol 80/4.5 [Symbicort 80/4.5] 2 puff IH BIDR 09/15/17 [ History] Cholecalciferol (Vitamin D3) [Vitamin D3] 1,000 unit PO DAILY 09/15/17 [History] Clopidogrel [Plavix] 75 mg PO DAILY 09/15/17 [History] Cyclobenzaprine HCl 5 mg PO TID PRN 09/15/17 [History] Fluticasone Propionate Nasal [Flonase] 2 spr NS DAILY 09/15/17 [History] Lisinopril [Zestril] 20 mg PO DAILY 09/15/17 [History] Magnesium Oxide [Magnesium] 400 mg PO BID 09/15/17 [History] Metoprolol Succinate 25 mg PO DAILY 09/15/17 [History] Multivit-Min/FA/Lycopen/Lutein [A Thru Z Select Multivit Tab] 1 tab PO DAILY 07/24 [History] Omeprazole [PriLOSEC] 40 mg PO DAILY 09/15/17 [History] Sertraline [Zoloft] 25 mg PO BID 09/15/17 [History] Tiotropium [Spiriva] 1 puff IH DAILY 09/15/17 [History] amLODIPine [Norvasc] 5 mg PO DAILY 09/15/17 [History] hydrOXYzine pamoate [HydrOXYzine Pamoate] 25 mg PO BID PRN 09/15/17 [History] metFORMIN [Glucophage] 500 mg PO BIDWM 09/15/17 [History] Albuterol Sulfate [Albuterol Inhaler] 2 puff IH Q6H #1 inhaler 09/18/17 [Rx] Aspirin Enteric Coated [Aspirin EC] 81 mg PO DAILY tablet. 09/18/17 [Rx] Metoprolol [Lopressor] 25 mg PO BID #60 tablet 09/18/17 [Rx] Nicotine Patch [Nicoderm] 21 mg TD DAILY patch.td24 09/18/17 [Rx] Nitroglycerin 0.4 mg SL Q5MIN PRN #20 tab.subl 09/18/17 [Rx] levoFLOXacin [Levaquin] 750 mg PO DAILY #6 tablet 09/18/17 [Rx] metroNIDAZOLE [Flagyl] 500 mg PO TID #20 tablet 09/18/17 [Rx] predniSONE [PredniSONE] 10 mg PO DAILY #28 tablet 09/18/17 [Rx] Allergies/Adverse Reactions: 3 Allergy/AdvReac Type Severity Reaction Status Date / Time No Known Allergies Allergy Verified 09/14/17 22:03 Date of admission: 09/15/17 02:05 [facility] Consults: 09/15/17 02:38 Consult to Cardiology [CONS] Routine Comment: Consulting Provider: Card[facility] Reason for Consult: NSTEMI Call Completed: No Discharging clinician: Jose Maria Bush Anticipated date of discharge: 09/18/17 - Patient Status Disposition: Home, Self-Care Condition: Good Functional capacity at discharge: independent ambulation Overall status at discharge: patient is back to baseline - Discharge Instructions Follow Up With: [facility] [Primary Care Provider] - (Please call and make a follow up appointment on Tuesday morning to schedule a hospital f/u) - Diet and Activity Activity: resume usual activities as tolerated Diet: advance to your usual diet Hospital course: Mr. Santoyo is a 66 year old male Admitted for chest pain noted to have positive troponin and was started on IV heparin by admitting team. However troponins remained flat and it was thought this could be secondary to demand ischemia therefore IV heparin has been stopped. I have added beta maggy to his aspirin considering the fact that he has history of CABG in the past. Nitroglycerin when necessary. Cardiology was consulted. Echocardiogram ordered which showed LVEF 60% with normal LV systolic function and mild diastolic dysfunction. I will to moderate aortic regurgitation and mild aortic stenosis. No wall motion abnormality.. Patient is noted to have bilateral pneumonia and I will add Flagyl to his IV Levaquin. Also noted to have COPD and will add nebulizers. Apparently chest pain has improved after taking nebulizers. Patient has diabetes and hypertension dyslipidemia. Also has history of bipolar disorder but currently has stopped taking medication. He is still receiving counseling as outpatient. - Time Spent with Patient Total time spent providing and/or coordinating discharge services: Greater than 30 minutes - Constitutional Vitals: Temp Pulse Resp BP Pulse Ox 97.4 F L 53 16 164/56 98 09/18/17 07:16 09/18/17 07:16 09/18/17 10:44 09/18/17 07:16 09/18/17 10:44 General appearance: Present: A&O X 3, no acute distress, answers questions appropriately - Head Head exam: Present: atraumatic, normocephalic - Eye Eye exam: Present: PERRL, conjuntiva pink, sclera anicteric Pupils: Present: PERRL - Neck Neck exam general surgery: Present: supple, trachea midline. Absent: lymphadenopathy - Respiratory Respiratory exam: Present: CTAB. Absent: accessory muscle use, rales, rhonchi, wheezes - Cardiovascular Cardiovascular exam: Present: RRR, +S1, +S2. Absent: diastolic murmur, gallop, rubs, systolic murmur - GI/Abdominal GI/Abdominal exam: Present: normal bowel sounds, soft, no peritoneal signs. Absent: distended, tenderness - Extremities Exam Extremities exam: Present: warm, radial pulses palpable and symmetrical. Absent : calf tenderness, cyanotic, pedal edema - Neurological Exam Neurological exam: Present: CN II-XII intact, oriented X3, no focal deficits. Absent: pronater drift, facial droop, speech deficit - Skin Skin exam: Present: dry, intact - VTE Documentation of Mechanical Device: Intermittent pneumatic compression device
[2017-09-18 11:51] VITALS: BP 144/50
[2017-09-19 09:36] LABS: CK Total (Ck Isoenzymes) 112 U/L (20-200)
[2017-09-19 09:36] LABS: CK Total (Ck Isoenzymes) 144 U/L (20-200)
== END 2017-09-18 12:45 | disposition home or self-care (01) | DRG 194 ==
LOC: EMEROO 21:55 → 2ANU 09-15 02:05
PROVIDERS: ADMIT Hospitalist; ATTEND Internal Medicine

== ENCOUNTER 2018-04-11 17:51 | Inpatient (IN) ==
--- NOTE | 2018-04-11 18:08 | Emergency Department Note ---
Disposition Clinical Impression: Elevated troponin, GI bleed, Anemia Disposition: Admitted As Inpatient Condition: Fair General Adult HPI - General Stated complaint: Elevated Truponin Time Seen by Provider: 04/11/18 18:05 - Related Data Home Medications Medication Instructions Recorded Confirmed Cyclobenzaprine HCl 5 mg PO TID PRN 09/15/17 04/11/18 Magnesium Oxide [Magnesium] 400 mg PO BID 09/15/17 04/11/18 Multivit-Min/FA/Lycopen/Lutein [A 1 tab PO DAILY 09/15/17 04/11/18 Thru Z Select Multivit Tab] Omeprazole [PriLOSEC] 40 mg PO DAILY 09/15/17 04/11/18 amLODIPine [Norvasc] 5 mg PO DAILY 09/15/17 04/11/18 hydrOXYzine pamoate [HydrOXYzine 25 mg PO BID PRN 09/15/17 04/11/18 Pamoate] Carboxymethyl/Glycerin/Poly80 1 drop OP TID 04/11/18 04/11/18 [Refresh Optive Advanced Drops] Docusate [Colace] 100 mg PO DAILY 04/11/18 04/11/18 Previous Rx's Medication Instructions Recorded Aspirin Enteric Coated [Aspirin EC] 81 mg PO DAILY tablet. 09/18/17 Metoprolol [Lopressor] 25 mg PO BID #60 tablet 09/18/17 Allergies Allergy/AdvReac Type Severity Reaction Status Date / Time No Known Allergies Allergy Verified 04/11/18 19:57 Past Medical History - Past Medical History Medical history: Reports: COPD, coronary artery disease, diabetes, GERD, hyperlipidemia, hypertension, myocardial infarction Psychiatric history: Reports: depression, schizophrenia - Social History Smoking Status: Current every day smoker Alcohol use: Reports: none Drug use: Reports: none Course Vital Signs Temperature 97.4 F L 04/11/18 18:08 Pulse Rate 73 04/11/18 18:08 Respiratory Rate 20 04/11/18 18:08 Blood Pressure 106/60 04/11/18 18:08 O2 Sat by Pulse Oximetry 97 04/11/18 18:08 Temperature 97.7 F 04/11/18 23:46 Pulse Rate 73 04/11/18 23:46 Respiratory Rate 18 04/11/18 23:46 Blood Pressure 95/86 04/11/18 23:46 O2 Sat by Pulse Oximetry 92 04/11/18 23:46 Oxygen Delivery Oxygen Delivery Nasal Cannula Medical Decision Making - Lab Data Lab Results 04/11/18 Range/Units 19:00 Blood Type O POSITIVE Antibody Screen NEGATIVE Crossmatch See Detail Attestation Statement - Attestation Attestation: I examined this patient and my medical decision-making was reviewed with the Resident Physician. I agree with the documented findings, disposition and treatment plan as described except to the extent set forth below. [id number] time provided Patient arrives as a transfer from the [facility] due to pulmonary congestion, acute anemia, and suspected GI bleed. The patient is pale appearing on exam. He does appear older than his stated age. I did review the results of the tests from the [facility].
--- NOTE | 2018-04-11 18:23 | Emergency Department Note ---
Disposition Clinical Impression: Elevated troponin GI bleed Qualifiers: GI bleed type/associated pathology: unspecified gastrointestinal hemorrhage type Qualified Code(s): K92.2 - Gastrointestinal hemorrhage, unspecified Anemia Qualifiers: Anemia type: unspecified type Qualified Code(s): D64.9 - Anemia, unspecified Disposition: Admitted As Inpatient Condition: Fair General Adult HPI - General Chief complaint: ED Chest Pain Stated complaint: Elevated Truponin Time Seen by Provider: 04/11/18 18:05 Source: patient Mode of arrival: EMS Limitations: no limitations Nursing Notes Reviewed: Yes Vital Signs Reviewed: Yes - History of Present Illness HPI Narrative: 67-year-old male with a history of CAD, hypertension presents for evaluation from the [place] for an elevated troponin. Patient states that these felt weak for the past week. Patient's also had shortness of breath over the past 2-3 days. Patient also had lower leg swelling during that time. Patient denies any chest pain. Patient denies any fevers or cough. No abdominal pain nausea vomiting or diaphoresis. Patient also has had dark stools over the past couple days. Patient denies history of anticoagulation. Patient states he does take aspirin. Patient denies any history of bowel causing her liver disease. [facility] the [facility] did have a drop in his hemoglobin. Patient was occult positive at the [place]. Patient also had an elevated troponin. Patient had a chest x-ray showed cardiomegaly with residual pulmonary edema and small pleural effusion collections consistent with CHF. Patient had a high- sensitivity troponin of 0.738. Patient's creatinine is 0.99 potassium 5.6 sodium 128 Pro BNP of 6157. Patient's hemoglobin was 7.0. WBC of 18.1. Platelets of 364. Patient's INR 1.9. Pain Scale: 0 - Related Data Home Medications Medication Instructions Recorded Confirmed Cyclobenzaprine HCl 5 mg PO TID PRN 09/15/17 04/11/18 Magnesium Oxide [Magnesium] 400 mg PO BID 09/15/17 04/11/18 Multivit-Min/FA/Lycopen/Lutein [A 1 tab PO DAILY 09/15/17 04/11/18 Thru Z Select Multivit Tab] Omeprazole [PriLOSEC] 40 mg PO DAILY 09/15/17 04/11/18 amLODIPine [Norvasc] 5 mg PO DAILY 09/15/17 04/11/18 hydrOXYzine pamoate [HydrOXYzine 25 mg PO BID PRN 09/15/17 04/11/18 Pamoate] Carboxymethyl/Glycerin/Poly80 1 drop OP TID 04/11/18 04/11/18 [Refresh Optive Advanced Drops] Docusate [Colace] 100 mg PO DAILY 04/11/18 04/11/18 Previous Rx's Medication Instructions Recorded Aspirin Enteric Coated [Aspirin EC] 81 mg PO DAILY tablet. 09/18/17 Metoprolol [Lopressor] 25 mg PO BID #60 tablet 09/18/17 Allergies Allergy/AdvReac Type Severity Reaction Status Date / Time No Known Allergies Allergy Verified 04/11/18 19:57 All systems ED: reviewed and negative except as stated. Constitutional: Denies: fever Cardiovascular: Denies: chest pain Respiratory: Reports: cough, dyspnea Gastrointestinal: Denies: abdominal pain, nausea, vomiting Past Medical History - Past Medical History Medical history: Reports: COPD, coronary artery disease, diabetes, GERD, hyperlipidemia, hypertension, myocardial infarction Psychiatric history: Reports: depression, schizophrenia - Social History Smoking Status: Current every day smoker Smokeless Tobacco Status: No Alcohol use: Reports: none Drug use: Reports: none Physical Exam - General Limitations: no limitations General appearance: alert, in no apparent distress - Head Head exam: atraumatic, normocephalic, normal inspection - Eye Eye exam: Present: normal appearance, EOMI - ENT ENT exam: normal exam, normal oropharynx, mucous membranes moist - Neck Neck exam: Present: normal inspection - Chest Chest inspection: Present: normal inspection, symmetric chest wall rise - Respiratory Respiratory exam: Present: prolonged expiratory phase, other (Diffusely decreased breath sounds) - Cardiovascular Cardiovascular exam: Present: regular rate, normal rhythm. Absent: systolic murmur - Abdominal Exam Abdominal exam: Present: soft, Non-Tender - Extremities Exam Extremities exam: Present: normal inspection, pedal edema (1+ pedal edema) - Back Exam Back exam: Present: normal inspection - Neurological Exam Neurological exam: Present: alert, oriented X3, CN II-XII intact - Skin Skin exam: Present: warm, dry, intact, normal color Course Course Narrative: Patient's records were reviewed at the [place]. Patient did have an elevated troponin the high-sensitivity. Patient was typed and screened. Repeat EKG obtained. Patient will be admitted for GI bleed, anemia, elevated troponin. - Reevaluation(s) Reevaluation #1: Given the patient's shortness of breath and anemia. The patient will get 1 unit of PRBCs. Patient also get a dose of Lasix. Patient will likely need gradual diuresis in coordination with transfusion. This was in agreement with the hospitalist. Time: 19:30 Vital Signs Temperature 97.4 F L 04/11/18 18:08 Pulse Rate 73 04/11/18 18:08 Respiratory Rate 20 04/11/18 18:08 Blood Pressure 106/60 04/11/18 18:08 O2 Sat by Pulse Oximetry 97 04/11/18 18:08 Temperature 97.7 F 04/11/18 21:22 Pulse Rate 77 04/11/18 21:22 Respiratory Rate 18 04/11/18 21:22 Blood Pressure 89/41 04/11/18 21:22 O2 Sat by Pulse Oximetry 95 04/11/18 21:22 Oxygen Delivery Oxygen Delivery Nasal Cannula Medical Decision Making - MDM Narrative Medical decision making narrative: Patient seen and examined. Patient's records reviewed from the [place]. Patient did not get a repeat labs during the ED course as a were recently obtained at the [place]. Patient was noted have a high-sensitivity elevated troponin. Patient' s EKG was similar to the prior EKG obtained at the [place]. Patient's denying any chest pain currently. Overall clinical picture appears to be anemia in the setting of GI bleed with congestive heart failure. Patient is requiring some supplemental oxygen. Patient is not in any respiratory distress. Patient was not anticoagulated for his elevated troponin given the concerns for GI bleed. Patient will likely need further evaluation with serial troponins and an echo. Patient will likely need evaluations for GI bleed. - Lab Data Lab Results 04/11/18 Range/Units 19:00 Blood Type O POSITIVE Antibody Screen NEGATIVE Crossmatch See Detail - Radiology Data Radiology results reviewed: Yes I reviewed the patient's radiology results. - EKG Data EKG #1 EKG attestation: Yes I reviewed and interpreted this EKG. EKG shows normal: sinus rhythm Rate: normal Rhythm: NSR [place]/QRS: normal T wave inversions noted in: I, aVL, v3, v4, v5, v6 Interpretation: no acute changes, nonspecific ST-T wave changes S.B.A.R. - S.B.A.R. Situation: Demographics Background: Presenting Complaint Assessment: Vital Signs, Course and respsone to treatment, Patient/Family Expectation Recommendation: Barrier(s) to disposition, Recommendation based on pending studies, treatments, or consults Steve Report Given to: Dr. Bharat Wilson Repor Time: 19:31
[2018-04-11] MEDS ORDERED: Pantoprazole 40 MG VIAL IVP ONE (18:29)
[2018-04-11] MEDS ORDERED: Furosemide 40 MG/4 ML VIAL IVP ONE (19:29)
[2018-04-11] MEDS ORDERED: Acetaminophen 325 MG TABLET PO PRN (22:56)
[2018-04-11] MEDS ORDERED: Naloxone 0.4 MG/ML INJ IVP PRN (22:56)
[2018-04-11] MEDS ORDERED: hydrOXYzine pamoate 25 MG CAPSULE PO PRN (23:04)
--- NOTE | 2018-04-12 00:16 | Internal Med History&Physical ---
Date of Encounter: 04/11/18 Time of Encounter: 20:00 Internal Medicine - H&P: HPI Chief complaint: Shortness of breath Admitted From: Home Plans for Post Hospital Care: Home History of present illness: Mr. Santoyo is a 67 year old male presented to the [facility] for shortness of breath. Patient was transferred to our hospital for further management. Past medical history is significant for diabetes on diet control, CAD S/P CABG, CHF, COPD. Patient said he has increased the shortness of breath for 3 days. Feels tired and generalized weakness. Patient denies chest pain, no nausea, no vomiting, no diarrhea. Patient complaining of black stool for one to 2 days. Last bowel movement was this morning. Patient denies NSAID or anticoagulation use. In the [facility], he was found hemoglobin low to 7.0. Patient has elevated troponin to 0.738. Guaiac test positive. Patient has elevated BNP to 6157. Chest x-ray shows cardiomegaly with pulmonary edema, consistent with CHF. Patient was given Lasix 40 mg IV once in now ER, his shortness of breath has improved after treatment. Patient was admitted for GI bleed and CHF exacerbation. Past Med Surg Social Fam HX - Past Medical History Medical history: COPD, coronary artery disease, diabetes, GERD, hyperlipidemia, hypertension, myocardial infarction Psychiatric history: depression, schizophrenia - Past Surgical History Surgical History: coronary bypass (CABG) Additional surgical history: carotidendarterectomy - Social History Smoking Status: Current every day smoker Packs per day: 1 Smokeless Tobacco Status: No Alcohol use: none Drug use: none - Family History Mother History Unknown: Yes Internal Medicine - H&P: Meds Cyclobenzaprine HCl 5 mg PO TID PRN 09/15/17 [History] Magnesium Oxide [Magnesium] 400 mg PO BID 09/15/17 [History] Multivit-Min/FA/Lycopen/Lutein [A Thru Z Select Multivit Tab] 1 tab PO DAILY 07/24 [History] Omeprazole [PriLOSEC] 40 mg PO DAILY 09/15/17 [History] amLODIPine [Norvasc] 5 mg PO DAILY 09/15/17 [History] hydrOXYzine pamoate [HydrOXYzine Pamoate] 25 mg PO BID PRN 09/15/17 [History] Aspirin Enteric Coated [Aspirin EC] 81 mg PO DAILY tablet. 09/18/17 [Rx] Metoprolol [Lopressor] 25 mg PO BID #60 tablet 09/18/17 [Rx] Carboxymethyl/Glycerin/Poly80 [Refresh Optive Advanced Drops] 1 drop OP TID 03/24 [History] Docusate [Colace] 100 mg PO DAILY 04/11/18 [History] 3 Allergy/AdvReac Type Severity Reaction Status Date / Time No Known Allergies Allergy Verified 04/11/18 19:57 All Systems PM: A 10-system review of systems was performed and is negative for pertinent findings except as documented above in the HPI. - Constitutional Vitals: Temp Pulse Resp BP Pulse Ox 97.7 F 73 18 95/86 92 04/11/18 23:46 04/11/18 23:46 04/11/18 23:46 04/11/18 23:46 04/11/18 23:46 General appearance: Present: A&O X 3, no acute distress, answers questions appropriately - Head Head exam: Present: atraumatic, normocephalic - Eye Eye exam: Present: PERRL, conjuntiva pink, sclera anicteric Pupils: Present: PERRL - Neck Neck exam general surgery: Present: supple, trachea midline. Absent: lymphadenopathy - Respiratory Respiratory exam: Present: CTAB, rales (Fine crackles on bilateral lung base). Absent: accessory muscle use, rhonchi, wheezes - Cardiovascular Cardiovascular exam: Present: RRR, +S1, +S2. Absent: diastolic murmur, gallop, rubs, systolic murmur - GI/Abdominal GI/Abdominal exam: Present: normal bowel sounds, soft, no peritoneal signs. Absent: distended, tenderness - Extremities Exam Extremities exam: Present: pedal edema (Bilaterally), warm, radial pulses palpable and symmetrical. Absent: calf tenderness, cyanotic - Neurological Exam Neurological exam: Present: CN II-XII intact, oriented X3, no focal deficits. Absent: pronater drift, facial droop, speech deficit - Skin Skin exam: Present: dry, intact Internal Med - H&P Results - EKG Data -: EKG Interpreted by Myself EKG shows normal: ST-T waves (T wave inversion on V2-V6) - VTE Documentation of Mechanical Device: Intermittent pneumatic compression device - Assessment and plan (1) CHF exacerbation Current Visit: Yes Status: Acute Assessment and plan: Patient has increased the shortness of breath, elevated BNP, bilateral leg swelling, and chest x-ray shows consistent with CHF. Consider CHF exacerbation. Previous echo reviewed, LVEF 60%, consider diastolic CHF. - Strict I and O - Fluid restriction - Lasix 40mg IV twice a day, closely monitor vitals as patient has GI bleed as well. Qualifiers: Heart failure type: diastolic Qualified Code(s): I50.33 - Acute on chronic diastolic (congestive) heart failure (2) DVT prophylaxis Current Visit: Yes Status: Acute Assessment and plan: EPCD (3) Anemia Current Visit: Yes Status: Acute Assessment and plan: Patient has guaiac test positive. Has black stool. Anemia probably due to GI bleed. - We will consult GI Qualifiers: Anemia type: unspecified type Qualified Code(s): D64.9 - Anemia, unspecified (4) Elevated troponin Current Visit: Yes Status: Acute Assessment and plan: Patient has elevated troponin. Denies chest pain, however EKG shows some T- wave inversion. - Continue cardiac monitoring - Track 3 sets of troponin to see the trend - Not a candidate for heparin drip because of GI bleed. - We will give transfusion to correct low hemoglobin - Consult cardiology in a.m. for further management. (5) GI bleed Current Visit: Yes Status: Acute Assessment and plan: Patient has black stool with decreased hemoglobin level. Consider GI bleeding - We will give transfusion at a low rate (considering CHF exacerbation) - Closely monitor H&H and vitals - Clear liquid diet at this point - IV PPI - Consult GI in a.m. Qualifiers: GI bleed type/associated pathology: melena Qualified Code(s): K92.1 - Melena (6) COPD (chronic obstructive pulmonary disease) Current Visit: No Status: Acute Assessment and plan: Stable. Continue home medications Qualifiers: COPD type: COPD with acute exacerbation Qualified Code(s): J44.1 - Chronic obstructive pulmonary disease with (acute) exacerbation (7) Coronary artery disease Current Visit: No Status: Acute Assessment and plan: Denies chest pain. Patient has elevated troponin and EKG change. Will consult cardiology for further management. Qualifiers: Coronary Disease-Associated Artery/Lesion type: [place] artery [place] vs. transplanted heart: [place] heart Associated angina: without angina Qualified Code(s): I25.10 - Atherosclerotic heart disease of [place] coronary artery without angina pectoris (8) Diabetes Current Visit: No Status: Acute Assessment and plan: Continue diet control Qualifiers: Diabetes mellitus type: type 2 Diabetes mellitus mcc insulin use: without mcc use Diabetes mellitus complication status: with other specified complication Qualified Code(s): E11.69 - Type 2 diabetes mellitus with other specified complication - Time Spent With Patient Total time spent is greater than 50% in coordination of care (as documented) at patient's floor/unit and/or counseling patient: Greater than 35 minutes
[2018-04-12 02:01] LABS: Basophils % 0.2 %; Hematocrit 22.4 % (37.5-50.1); Immature Granulocytes % 1.3 % (0-4); Lymphocytes # 1.3 K/mcL (0.6-4.6); Lymphocytes % 8.6 %; Mean Corpuscular HGB Conc 31.3 g/dL (31.6-35.5); Mean Corpuscular Hemoglobin 27.1 pg (28.0-33.3); Mean Corpuscular Volume 86.8 fL (83.0-100.0); Mean Platelet Volume 10.1 fL (9.4-12.4); Monocytes # 1.5 K/mcL (0.0-1.3); Monocytes % 9.9 %; Neutrophils # 11.7 K/mcL (1.6-8.9); Nucleated Red Blood Cells 0.8 /100 WBC (0); Platelet Count 246 K/mcL (140-400); Red Blood Count 2.58 M/mcL (4.19-5.50); Red Cell Distribution Width 16.4 % (11.5-14.5)
[2018-04-12 02:20] LABS: BUN/Creatinine Ratio 37 (6-26); Blood Urea Nitrogen 31 mg/dL (8-23); Calcium 8.3 mg/dL (8.6-10.3); Carbon Dioxide 21 mEq/L (23-29); Chloride 94 mEq/L (98-107); Glucose 160 mg/dL (70-105); Osmolality,Calculated 268 (280-300); Potassium 4.4 mEq/L (3.5-5.1); Sodium 124 mEq/L (136-145); eGFR For African Americans > 60 (> 60); eGFR For Non-African Americans > 60 (> 60)
[2018-04-12] MEDS: Pantoprazole 40 MG VIAL IVP SCH ×2 (05:54→20:26)
[2018-04-12] MEDS: Magnesium Oxide 400 MG TABLET PO SCH ×2 (08:37→20:23)
[2018-04-12] MEDS: Multivit/Ca/Min/Fe/FA 1 TAB TABLET PO SCH (08:37)
[2018-04-12] MEDS: Furosemide 40 MG/4 ML VIAL IVP SCH ×2 (08:38→20:22)
[2018-04-12] MEDS: Nicotine 21 MG PATCH.TD24 TD SCH (08:38)
[2018-04-12] MEDS: Artificial Tears SOLN 15 ML BOTTLE OP SCH ×3 (08:39→20:22)
[2018-04-12] MEDS ORDERED: amLODIPine 5 MG TABLET PO SCH (09:00)
[2018-04-12 09:08] LABS: Hematocrit 22.7 % (37.5-50.1); Hemoglobin 7.4 g/dL (12.9-16.9)
[2018-04-12 09:24] LABS: Troponin I 0.34 ng/mL (< 0.04)
--- NOTE | 2018-04-12 10:08 | Cardiology Consult Note ---
Date of Encounter: 04/12/18 Time of Encounter: 08:30 Assessment and Plan (1) Elevated troponin Current Visit: Yes Status: Acute Elevated troponin in the setting of CHF exacerbation and acute anemia requiring blood transfusion. EKG shows SR with inferior ST changes unchanged from previous. New T wave changes in the anteriorlateral leads. Demand ischemia vs NSTEMI. He denies chest pain currently. He is not a candidate for LHC at this time due to anemia with concern for GI bleed. Check TTE. No heparin gtt due to anemia. Restart asa when felt to be safe from bleeding stanpoint. Start statin therapy. (2) CHF exacerbation Current Visit: Yes Status: Acute Presents with acute CHF. H/o preserved EF. Last TTE in 2016 showed EF 60%. Mild fluid overload on exam. Reports prior hospitalization with CHF. Re-peat TTE to assess LV function. IV diuresis as tolerated. Currently on 40 mg IV BID. Net negative 700 ml. Symptoms improved. Low sodium diet and daily weights. 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 Previous cardiac testing reviewed: JESSICA- LVEF 60%. Normal LV size and function. The right ventricle was normal in size and systolic function. Trileaflet aortic valve. The non and left coronary cusps are mildly sclerotic. The noncoronary cusp is calcified with reduced mobility. Moderate aortic regurgitation. Mild aortic stenosis suggested by TTE on (mean gradient 16 mmHg). Transvalvular gradient could not be well obtained on this JESSICA. Moderate mitral annular calcification, especially posteriorly. Mild mitral regurgitation. No mitral stenosis. Unable to estimate RVSP due to lack of TR. TTE 09/15/17-LVEF 60%. Normal LV chamber size and function. Mild left ventricular diastolic dysfunction. Mild concentric left ventricular hypertrophy. Atypical septal motion consistent with post-operative status. Normal right ventricular structure and function. Aortic valve not well visualized. Grossly, the aortic valve appears mildly calcified. Grossly, mild- moderate aortic regurgitation, which was not well visualized and could be underestimated. Mild aortic stenosis. Mean gradient 14 mmHg. Moderate mitral annular calcification. Mild mitral stenosis. Mean gradient 5 mmHg. Unable to estimate RVSP due to lack of TR jet. Continue medical management. check TTE. Qualifiers: Coronary Disease-Associated Artery/Lesion type: [place] artery [place] vs. transplanted heart: [place] heart Associated angina: without angina Qualified Code(s): I25.10 - Atherosclerotic heart disease of [place] coronary artery without angina pectoris (4) Anemia Current Visit: Yes Status: Acute Hgb 7.0 on admit with c/o black tarry stools. S/p 1 unit PRBC. Per primary team. Qualifiers: Anemia type: unspecified type Qualified Code(s): D64.9 - Anemia, unspecified Discussion w patient/family: The assessment and plan as outlined above was discussed with the patient and/or family members who expressed understanding and agreement. All questions were answered. Thank you for involving us in the care of your patient. Please call with any questions. History of Present Illness Consult date: 04/12/18 Requesting physician: Charissa Nicholson Consult reason: elevated troponin Chief complaint: SOB, BLE edema History of present illness: Mr. Santoyo is a 67 year old male with past medical history of CAD s/p CABG in 2013, CHF, and COPD. He presents with the c/o increasing SOB, BLE edema, and black tarry stools for two days. He denies fever, increased cough, or chills. Denies orthopnea. Denies chest pain. Initial work-up revealed elevated troponin at 0.73, 0.21, BNP elevated 6157, and is found to have anemia with HGB 7.0. He was given one unit of blood. Cardiology consulted for elevated troponin. Past Med Surg Social Fam HX - Past Medical History Medical history: COPD, coronary artery disease, diabetes, GERD, hyperlipidemia, hypertension, myocardial infarction Psychiatric history: depression, schizophrenia - Past Surgical History Surgical History: coronary bypass (CABG) Additional surgical history: carotidendarterectomy - Social History Smoking Status: Current every day smoker Packs per day: 1 Smokeless Tobacco Status: No Alcohol use: none Drug use: none - Family History Mother History Unknown: Yes Medications and Allergies Cyclobenzaprine HCl 5 mg PO TID PRN 09/15/17 [History] Magnesium Oxide [Magnesium] 400 mg PO BID 09/15/17 [History] Multivit-Min/FA/Lycopen/Lutein [A Thru Z Select Multivit Tab] 1 tab PO DAILY 07/24 [History] Omeprazole [PriLOSEC] 40 mg PO DAILY 09/15/17 [History] amLODIPine [Norvasc] 5 mg PO DAILY 09/15/17 [History] hydrOXYzine pamoate [HydrOXYzine Pamoate] 25 mg PO BID PRN 09/15/17 [History] Aspirin Enteric Coated [Aspirin EC] 81 mg PO DAILY tablet. 09/18/17 [Rx] Metoprolol [Lopressor] 25 mg PO BID #60 tablet 09/18/17 [Rx] Carboxymethyl/Glycerin/Poly80 [Refresh Optive Advanced Drops] 1 drop OP TID 03/24 [History] Docusate [Colace] 100 mg PO DAILY 04/11/18 [History] 3 Allergy/AdvReac Type Severity Reaction Status Date / Time No Known Allergies Allergy Verified 04/11/18 19:57 All Systems Review: The remainder of the systems were reviewed and are negative Physical Examination Vital Signs, Last 4 Hours Temp Pulse Resp BP Pulse Ox 04/12/18 07:21 98.1 F 75 18 133/44 100 General: Conversant, No Apparent Distress HEENT: Atraumatic, Normocephaly, Mucus Membranes Moist Neck: No JVD, Normal carotid pulses Cardiac: Reg Rate and Rhythm, Normal S1 and S2, No Murmur Lungs: Normal Breath Sounds, No Wheeze, Rales, Rhonchi, Other (Lungs diinished in bases) Neuro: Alert and responsive, No focal deficits noted Abdomen: Soft, Non-Tender Skin: No rashes noted on visualized skin Musculoskeletal: No Chest Wall Tenderness Extremities: No Clubbing, No Cyanosis, Normal Pulses, Other (1+ edema BLE, ) Results 04/12/18 08:36 04/12/18 01:42 Lab Results 04/12/18 04/12/18 04/12/18 01:42 01:42 01:42 WBC 14.6 H Hgb 7.0 L Hct 22.4 L Plt Count 246 Sodium 124 L Potassium 4.4 Chloride 94 L Carbon Dioxide 21 L BUN 31 H Creatinine 0.84 Glucose 160 H Calcium 8.3 L Troponin I 0.21 H* 04/12/18 04/12/18 08:36 08:36 WBC Hgb 7.4 L Hct 22.7 L Plt Count Sodium Potassium Chloride Carbon Dioxide BUN Creatinine Glucose Calcium Troponin I 0.34 H* - Imaging and Cardiology Echo: report reviewed Cardiac cath: report reviewed - EKG Interpretation EKG results cardiology: personally reviewed Consult Discharge Plan - Plan [facility] [Primary Care Provider[facility] -
[2018-04-12 10:48] LABS: BUN/Creatinine Ratio 40 (6-26); Blood Urea Nitrogen 29 mg/dL (8-23); Calcium 8.4 mg/dL (8.6-10.3); Carbon Dioxide 24 mEq/L (23-29); Chloride 95 mEq/L (98-107); Glucose 96 mg/dL (70-105); Osmolality,Calculated 270 (280-300); Potassium 4.7 mEq/L (3.5-5.1); Sodium 127 mEq/L (136-145); eGFR For African Americans > 60 (> 60); eGFR For Non-African Americans > 60 (> 60)
[2018-04-12] MEDS: amLODIPine 5 MG TABLET PO SCH (11:13)
--- NOTE | 2018-04-12 11:22 | Internal Med Progress Note ---
<Namrata Archuleta - Last Filed: 04/12/18 11:20> Date of Encounter: 04/12/18 Time of Encounter: 11:20 - Assessment and plan (1) GI bleed Current Visit: Yes Status: Acute Assessment and plan: Patient has black stool with decreased hemoglobin level. Concern for UGI bleed. Pt had one transfusion at low rate overnight, Hgb improved from 7 to 7.4 Plan: GI consulted, plan for EGD today or tomorrow, appreciate their recommendations. Closely monitor H&H and vitals Transfusion as necessary NPO until timing of EGD determined Continue IV protonix Qualifiers: GI bleed type/associated pathology: melena Qualified Code(s): K92.1 - Melena (2) Anemia Current Visit: Yes Status: Acute Assessment and plan: Management as above Qualifiers: Anemia type: unspecified type Qualified Code(s): D64.9 - Anemia, unspecified (3) CHF exacerbation Current Visit: Yes Status: Acute Assessment and plan: Patient has increased the shortness of breath, elevated BNP, bilateral leg swelling, and chest x-ray shows consistent with CHF. Consider CHF exacerbation. Previous echo reviewed, LVEF 60% Cardiology following Plan: Strict I and O Fluid restriction o 1.5L daily Daily Weights TTE Lasix 40mg IV twice a day Qualifiers: Heart failure type: diastolic Qualified Code(s): I50.33 - Acute on chronic diastolic (congestive) heart failure (4) Elevated troponin Current Visit: Yes Status: Acute Assessment and plan: Pt evaluated by cardiology, likely secondary to demand ischemia in the setting of acute anemia requiring blood transfusion. Pt not a candidate for LHC currently due to anemia and concern for GI bleed. Plan: TTE Restart ASA when safe Start statin (5) Coronary artery disease Current Visit: No Status: Acute Assessment and plan: Denies chest pain. Patient has elevated troponin and EKG change. Cardiology following, not currently LHC candidate with acute anemia. Demand ischemia vs NSTEMI Plan: Continue medical management TTE Qualifiers: Coronary Disease-Associated Artery/Lesion type: [place] artery [place] vs. transplanted heart: [place] heart Associated angina: without angina Qualified Code(s): I25.10 - Atherosclerotic heart disease of [place] coronary artery without angina pectoris (6) COPD (chronic obstructive pulmonary disease) Current Visit: No Status: Acute Assessment and plan: Stable. Continue home medications Qualifiers: COPD type: COPD with acute exacerbation Qualified Code(s): J44.1 - Chronic obstructive pulmonary disease with (acute) exacerbation (7) Diabetes Current Visit: No Status: Acute Assessment and plan: AM fasting glucose in normal range today Plan: Continue diet control Qualifiers: Diabetes mellitus type: type 2 Diabetes mellitus long term care pharmacist insulin use: without assisted use Diabetes mellitus complication status: with other specified complication Qualified Code(s): E11.69 - Type 2 diabetes mellitus with other specified complication (8) DVT prophylaxis Current Visit: Yes Status: Acute Assessment and plan: EPCD in setting of acute anemia. - Time Spent With Patient Total time spent is greater than 50% in coordination of care (as documented) at patient's floor/unit and/or counseling patient: - Subjective Interval history: Pt seen and examined, resting quietly in bed. He states that he has had dark black stools off and on, no BRBPR. He denies any abdominal pain, cp, sob, n/v, dizziness. He does state that he fell on 03/26, landing on his bottom and bruising it. - Constitutional Vitals: Temp Pulse Resp BP Pulse Ox 98.1 F 75 18 133/44 100 04/12/18 07:21 04/12/18 07:21 04/12/18 07:21 04/12/18 07:21 04/12/18 07:21 General appearance: Present: disheveled, A&O X 3, no acute distress, answers questions appropriately - Head Head exam: Present: atraumatic, normocephalic - Eye Eye exam: Present: PERRL, conjuntiva pink, sclera anicteric Pupils: Present: PERRL - Neck Neck exam general surgery: Present: supple, trachea midline. Absent: lymphadenopathy - Respiratory Respiratory exam: Present: rhonchi. Absent: accessory muscle use, respiratory distress, stridor, wheezes, tachypnea - Cardiovascular Cardiovascular exam: Present: RRR, +S1, +S2. Absent: diastolic murmur, gallop, rubs, systolic murmur - GI/Abdominal GI/Abdominal exam: Present: normal bowel sounds, soft, no peritoneal signs. Absent: distended, tenderness - Extremities Exam Extremities exam: Present: warm, radial pulses palpable and symmetrical. Absent : calf tenderness, cyanotic, pedal edema - Back Exam Additional comments: bruising over coccyx - Neurological Exam Neurological exam: Present: oriented X3, no focal deficits. Absent: facial droop, speech deficit - Psychiatric Psychiatric exam: Present: normal affect, normal mood - Skin Skin exam: Present: dry, warm. Absent: abrasion, diaphoretic, erythema Additional comments: eccymosis over coccyx Internal Medicine: Result - Labs CBC & Chem 7: 04/12/18 08:36 04/12/18 08:36 Labs: Short CBC 04/12/18 04/12/18 Range/Units 01:42 08:36 WBC 14.6 H (4.3-11.1) K/mcL Hgb 7.0 L 7.4 L (12.9-16.9) g/dL Hct 22.4 L 22.7 L (37.5-50.1) % Plt Count 246 (140-400) K/mcL Neutrophils # 11.7 H (1.6-8.9) K/mcL BMP 04/12/18 04/12/18 01:42 08:36 Sodium 124 L 127 L Potassium 4.4 4.7 Chloride 94 L 95 L Carbon Dioxide 21 L 24 BUN 31 H 29 H Creatinine 0.84 0.72 Glucose 160 H 96 Calcium 8.3 L 8.4 L Cardiac Enzymes 04/12/18 04/12/18 Range/Units 01:42 08:36 Troponin I 0.21 H* 0.34 H* (< 0.04) ng/mL - VTE Documentation of Mechanical Device: Intermittent pneumatic compression device Consult Discharge Plan - Plan [facility]errals[facility] Care Provider[facility] - <Latonia Jacobo - Last Filed: 04/12/18 19:01> Date of Encounter: 04/12/18 - Assessment and plan (1) Elevated troponin Current Visit: Yes Status: Acute (2) COPD (chronic obstructive pulmonary disease) Current Visit: No Status: Acute Qualifiers: COPD type: COPD with acute exacerbation Qualified Code(s): J44.1 - Chronic obstructive pulmonary disease with (acute) exacerbation (3) Coronary artery disease Current Visit: No Status: Acute Qualifiers: Coronary Disease-Associated Artery/Lesion type: [place] artery [place] vs. transplanted heart: [place] heart Associated angina: without angina Qualified Code(s): I25.10 - Atherosclerotic heart disease of [place] coronary artery without angina pectoris (4) Diabetes Current Visit: No Status: Acute Qualifiers: Diabetes mellitus type: type 2 Diabetes mellitus assisted insulin use: without assisted use Diabetes mellitus complication status: with other specified complication Qualified Code(s): E11.69 - Type 2 diabetes mellitus with other specified complication (5) GI bleed Current Visit: Yes Status: Acute Qualifiers: GI bleed type/associated pathology: melena Qualified Code(s): K92.1 - Melena (6) Anemia Current Visit: Yes Status: Acute Qualifiers: Anemia type: unspecified type Qualified Code(s): D64.9 - Anemia, unspecified (7) CHF exacerbation Current Visit: Yes Status: Acute Qualifiers: Heart failure type: diastolic Qualified Code(s): I50.33 - Acute on chronic diastolic (congestive) heart failure (8) DVT prophylaxis Current Visit: Yes Status: Acute - Time Spent With Patient Total time spent is greater than 50% in coordination of care (as documented) at patient's floor/unit and/or counseling patient: - Constitutional Vitals: Temp Pulse Resp BP Pulse Ox 97.5 F L 74 19 106/46 99 04/12/18 18:51 04/12/18 18:51 04/12/18 18:51 04/12/18 18:51 04/12/18 18:51 Internal Medicine: Result - Labs CBC & Chem 7: 04/12/18 13:31 04/12/18 12:07 Labs: Short CBC 04/12/18 04/12/18 04/12/18 Range/Units 01:42 08:36 13:31 WBC 14.6 H (4.3-11.1) K/mcL Hgb 7.0 L 7.4 L 7.4 L (12.9-16.9) g/dL Hct 22.4 L 22.7 L 23.2 L (37.5-50.1) % Plt Count 246 (140-400) K/mcL Neutrophils # 11.7 H (1.6-8.9) K/mcL BMP 04/12/18 04/12/18 04/12/18 01:42 08:36 12:07 Sodium 124 L 127 L 129 L Potassium 4.4 4.7 4.0 Chloride 94 L 95 L 96 L Carbon Dioxide 21 L 24 20 L BUN 31 H 29 H 29 H Creatinine 0.84 0.72 0.78 Glucose 160 H 96 87 Calcium 8.3 L 8.4 L 8.4 L Cardiac Enzymes 04/12/18 04/12/18 04/12/18 Range/Units 01:42 08:36 12:07 Troponin I 0.21 H* 0.34 H* 0.34 H* (< 0.04) ng/mL - Attending Attestation I examined this patient and my medical decision-making was reviewed with the Resident Physician. I agree with the documented findings, disposition and treatment plan as described except to the extent set forth below.
--- NOTE | 2018-04-12 12:14 | Gastroenterology Consult Note ---
<Natanael Montana - Last Filed: 04/12/18 12:12> Date of Encounter: 04/12/18 Time of Encounter: 11:00 - Assessment and plan (1) GI bleed Current Visit: Yes Status: Acute Assessment and plan: Patient reports melena and Hgb decreased at 7. Plan for EGD today to r/o esophagitis, gastritis, duodenitis, PUD, MW tear, or AVM pending Cardiology clearance. Qualifiers: GI bleed type/associated pathology: melena Qualified Code(s): K92.1 - Melena (2) Anemia Current Visit: Yes Status: Acute Assessment and plan: Hgb 7 on admission. Continue to monitor CBC and transfuse PRBC as needed. Plan for EGD today to r/o esophagitis, gastritis, duodenitis, PUD, MW tear, or AVM pending Cardiology clearance.. Qualifiers: Anemia type: unspecified type Qualified Code(s): D64.9 - Anemia, unspecified (3) Elevated troponin Current Visit: Yes Status: Acute Assessment and plan: Cardiology consulted. Plan for TTE. - Time Spent With Patient Total time spent is greater than 50% in coordination of care (as documented) at patient's floor/unit and/or counseling patient: GI History of Present Illness - Data of Consult Patient: new to practice Consult date: 04/12/18 Requesting Physician: Sherry Pepper - Consult Narrative Reason for consult: GI bleed History of present illness: Mr. Santoyo is a 67 year old male with PMHx of COPD, CAD s/p CABG, DM, GERD, HLD , HTN, [place] who was transferred from the [facility] hospital for management of shortness of breath that worsened 3 days prior to admission. He denies chest pain, abdominal pain, nausea, vomiting, diarrhea. He does report black stool for 1-2 days. He is not taking anticoagulation. At the [facility] Hgb was 7 and troponin was elevated to 0.738. On admission here, Hgb 7 and troponin 0.21. We have been consulted to evaluate possible GI bleeding. Procedures: None NSAIDs: ASA Anticoagulation: None Past Med Surg Social Fam HX - Past Medical History Medical history: COPD, coronary artery disease, diabetes, GERD, hyperlipidemia, hypertension, myocardial infarction Psychiatric history: depression, schizophrenia - Past Surgical History Surgical History: coronary bypass (CABG) Additional surgical history: carotidendarterectomy - Social History Smoking Status: Current every day smoker Packs per day: 1 Smokeless Tobacco Status: No Alcohol use: none Drug use: none - Family History Mother History Unknown: Yes - Gastrointestinal Gastrointestinal: Present: as per HPI - Constitutional Constitutional: as per HPI - EENT Eyes: as per HPI Ears: Present: as per HPI Nose, mouth and throat: Present: as per HPI - Cardiovascular Cardiovascular ROS: Present: as per HPI - Respiratory Respiratory IM: Present: as per HPI - Genitourinary Genitourinary: Absent: change in color, Urinary frequency - Neurological ROS Neurological GI: Present: as per HPI - Hematologic/Lymphatic Hematologic/Lymphatic pediatric: Present: as per HPI - Musculoskeletal Musculoskeletal ROS GI: Present: as per HPI - Integumentary Integumentary GI: Present: as per HPI - Psychiatric ROS Psychiatric GI: Present: as per HPI - Endocrine Endocrine IM: Present: as per HPI - Constitutional Vitals: Temp Pulse Resp BP Pulse Ox 98.3 F 73 17 112/75 100 04/12/18 11:26 04/12/18 11:26 04/12/18 11:26 04/12/18 11:26 04/12/18 11:26 General appearance: Present: cooperative, A&O X 3, no acute distress, answers questions appropriately - Head Head exam: Present: atraumatic, normocephalic - Eye Eye exam: Present: normal appearance, sclera anicteric - ENT ENT exam: Present: mucous membranes dry - Neck Neck exam general surgery: Present: normal inspection, trachea midline - Respiratory Respiratory exam: Present: rhonchi. Absent: respiratory distress, wheezes - Cardiovascular Cardiovascular exam: Present: RRR, +S1, +S2 - GI/Abdominal GI/Abdominal exam: Present: soft, no peritoneal signs. Absent: distended, firm , guarding, tenderness - Rectal Rectal exam: Present: deferred - Extremities Exam Extremities exam: Present: warm - Neurological Exam Neurological exam: Present: no focal deficits - Psychiatric Psychiatric exam: Present: normal affect, normal mood - Skin Skin exam: Present: dry, intact, normal color, warm Results - Labs CBC & Chem 7: 04/12/18 08:36 04/12/18 08:36 Labs: Last Result Calcium 8.4 mg/dL (8.6-10.3) L 04/12/18 08:36 Troponin I 0.34 ng/mL (< 0.04) H* 04/12/18 08:36 Entire Visit Hgb 7.4 g/dL (12.9-16.9) L 04/12/18 08:36 Hct 22.7 % (37.5-50.1) L 04/12/18 08:36 Consult Discharge Plan - Plan [facility]errals: [facility] [Primary Care Provider[facility] - <Pete Duran - Last Filed: 04/12/18 17:53> Date of Encounter: 04/12/18 Time of Encounter: 18:00 - Time Spent With Patient Total time spent is greater than 50% in coordination of care (as documented) at patient's floor/unit and/or counseling patient: GI History of Present Illness - Data of Consult Requesting Physician: Sherry Pepper - Consult Narrative History of present illness: Mr. Santoyo is a 67 year old male - Constitutional Vitals: Temp Pulse Resp BP Pulse Ox 98.3 F 71 18 97/53 100 04/12/18 16:57 04/12/18 16:57 04/12/18 16:57 04/12/18 16:57 04/12/18 11:26 Results - Labs CBC & Chem 7: 04/12/18 13:31 04/12/18 12:07 Labs: Last Result Calcium 8.4 mg/dL (8.6-10.3) L 04/12/18 12:07 Troponin I 0.34 ng/mL (< 0.04) H* 04/12/18 12:07 Entire Visit Hgb 7.4 g/dL (12.9-16.9) L 04/12/18 13:31 Hct 23.2 % (37.5-50.1) L 04/12/18 13:31 - Attending Attestation I have personally performed a face to face evaluation on this patient. I have reviewed and agree with the care plan. History and Exam by me shows: Patient seen. Denies any abdominal pain. Does has melena. Last colonoscopy was at [facility] 2 years ago. Examination abdomen is benign. Assessment: patient with anemia/melena. Rec: EGD today
[2018-04-12 12:49] LABS: Troponin I 0.34 ng/mL (< 0.04)
[2018-04-12 13:57] LABS: Hematocrit 23.2 % (37.5-50.1); Hemoglobin 7.4 g/dL (12.9-16.9)
[2018-04-12 16:17] LABS: BUN/Creatinine Ratio 37 (6-26); Blood Urea Nitrogen 29 mg/dL (8-23); Calcium 8.4 mg/dL (8.6-10.3); Carbon Dioxide 20 mEq/L (23-29); Chloride 96 mEq/L (98-107); Glucose 87 mg/dL (70-105); Osmolality,Calculated 273 (280-300); Sodium 129 mEq/L (136-145); eGFR For African Americans > 60 (> 60); eGFR For Non-African Americans > 60 (> 60)
[2018-04-12] MEDS ORDERED: *HR* FentaNYL (PF) 100 MCG/2 ML VIAL ONE (17:48)
[2018-04-12] MEDS ORDERED: *HR* Midazolam HCl 5 MG/5 ML VIAL IVP ONE ×2 (17:48→17:49)
[2018-04-12] MEDS ORDERED: Simethicone 40 MG/0.6 ML MLS IR ONE (17:48)
[2018-04-12] MEDS ORDERED: *HR* FentaNYL (PF) 100 MCG/2 ML VIAL IVP ONE (17:48)
[2018-04-12] MEDS ORDERED: Tetracaine/Benzocaine/Butamben 200MG/SPRAY (100SPY/BOT) MM ONE (17:48)
--- NOTE | 2018-04-12 17:49 | Pre-Sedation Evaluation ---
Pre-sedation evaluation - Pre-sedation checklist Date of procedure: 04/12/18 Recent Vitals: Last Vital Signs Temp 98.3 F 04/12/18 16:57 Pulse 71 04/12/18 16:57 Resp 18 04/12/18 16:57 BP 97/53 04/12/18 16:57 Pulse Ox 100 04/12/18 11:26 ASA Classification *see protocol: CLASS III-Severe systemic disease Plan of Care: Pt appropriate candidate for procedure/moderate/conscious sedation , Risks/benefits of procedure/sedation discussed w/ patient/family
--- NOTE | 2018-04-12 18:05 | Electrocardiograph Report ---
[address] [place], [place] [address] Test Date: 2018-04-11 Pat Name: Buddy Santoyo Department: 103 Room: 2N13 Gender: M Curam Developer: DARRELL : 1950 Requested By: Kelton Gill Order Number: [id number] Reading MD: Brian Sarabia Measurements Intervals [place] Rate: 73 P: -17 FL: 188 QRS: -12 QRSD: 114 T: 137 QT: 385 QTc: 412 Interpretive Statements SINUS RHYTHM WITH SINUS ARRHYTHMIA ANTEROLATERAL ISCHEMIA Electronically Signed On 04-12-2018 18:04:00 EDT by Brian Sarabia
[2018-04-12 20:12] LABS: Hematocrit 22.5 % (37.5-50.1); Hemoglobin 7.2 g/dL (12.9-16.9)
[2018-04-13 04:29] LABS: Basophils % 0.2 %; Eosinophils % 0.2 %; Hematocrit 23.9 % (37.5-50.1); Hemoglobin 7.4 g/dL (12.9-16.9); Immature Granulocytes % 1.3 % (0-4); Lymphocytes # 1.6 K/mcL (0.6-4.6); Lymphocytes % 12.5 %; Mean Corpuscular Volume 87.2 fL (83.0-100.0); Mean Platelet Volume 10.6 fL (9.4-12.4); Monocytes # 1.4 K/mcL (0.0-1.3); Monocytes % 10.4 %; Neutrophils # 9.8 K/mcL (1.6-8.9); Nucleated Red Blood Cells 0.9 /100 WBC (0); Platelet Count 256 K/mcL (140-400); Red Blood Count 2.74 M/mcL (4.19-5.50); Segmented Neutrophils % 75.4 %
[2018-04-13 04:46] LABS: BUN/Creatinine Ratio 37 (6-26); Blood Urea Nitrogen 27 mg/dL (8-23); Calcium 8.2 mg/dL (8.6-10.3); Carbon Dioxide 23 mEq/L (23-29); Chloride 101 mEq/L (98-107); Glucose 124 mg/dL (70-105); Osmolality,Calculated 281 (280-300); Potassium 4.4 mEq/L (3.5-5.1); Sodium 132 mEq/L (136-145); eGFR For African Americans > 60 (> 60); eGFR For Non-African Americans > 60 (> 60)
[2018-04-13] MEDS: Pantoprazole 40 MG VIAL IVP SCH ×2 (06:27→18:10)
[2018-04-13] MEDS: amLODIPine 5 MG TABLET PO SCH (08:35)
[2018-04-13] MEDS: Sucralfate 1 GM TABLET PO SCH ×2 (08:41→18:10)
[2018-04-13] MEDS: Multivit/Ca/Min/Fe/FA 1 TAB TABLET PO SCH (08:41)
[2018-04-13] MEDS: Magnesium Oxide 400 MG TABLET PO SCH ×2 (08:41→20:17)
[2018-04-13] MEDS: Nicotine 21 MG PATCH.TD24 TD SCH (08:41)
[2018-04-13] MEDS: Artificial Tears SOLN 15 ML BOTTLE OP SCH ×3 (08:42→20:17)
--- NOTE | 2018-04-13 10:37 | Internal Med Progress Note ---
<Namrata Archuleta - Last Filed: 04/13/18 15:53> Date of Encounter: 04/13/18 Time of Encounter: 10:33 - Assessment and plan (1) GI bleed Current Visit: Yes Status: Acute Assessment and plan: Patient has black stool with decreased hemoglobin level. Concern for UGI bleed. EGD demonstrated non-bleeding gastric ulcers with no stigmata of bleeding, which were biopsied. Hgb stable 7.4 Plan: Will continue daily PPI therapy, TID carafate per GI. GI consulted, appreciate their recommendations. Closely monitor H&H and vitals Transfusion as necessary Continue IV protonix Qualifiers: GI bleed type/associated pathology: melena Qualified Code(s): K92.1 - Melena (2) Anemia Current Visit: Yes Status: Acute Assessment and plan: Management as above Qualifiers: Anemia type: unspecified type Qualified Code(s): D64.9 - Anemia, unspecified (3) CHF exacerbation Current Visit: Yes Status: Acute Assessment and plan: Patient presented with increased SOB, elevated BNP, bilateral leg swelling, and chest x-ray consistent with CHF. Previous echo reviewed, LVEF 60% ECHO shows decreased LVEF from previous at 50% Cardiology following Plan: Strict I/Os Fluid restriction of 1.5L daily Daily Weights Lasix 40mg IV twice a day Cardiology is following, appreciate their recommendations. Qualifiers: Heart failure type: diastolic Qualified Code(s): I50.33 - Acute on chronic diastolic (congestive) heart failure (4) Elevated troponin Current Visit: Yes Status: Acute Assessment and plan: Pt evaluated by cardiology, likely secondary to demand ischemia in the setting of acute anemia requiring blood transfusion. Pt not a candidate for LHC currently due to anemia and concern for GI bleed. ECHO shows worsened LVEF at 50% Plan: Restart ASA when safe Start statin (5) Coronary artery disease Current Visit: No Status: Acute Assessment and plan: Denies chest pain. Patient has elevated troponin and EKG change. Cardiology following, not currently LHC candidate with acute anemia. Demand ischemia vs NSTEMI Plan: Continue medical management Qualifiers: Coronary Disease-Associated Artery/Lesion type: [place] artery [place] vs. transplanted heart: [place] heart Associated angina: without angina Qualified Code(s): I25.10 - Atherosclerotic heart disease of [place] coronary artery without angina pectoris (6) COPD (chronic obstructive pulmonary disease) Current Visit: No Status: Acute Assessment and plan: Stable. Continue home medications Qualifiers: COPD type: COPD with acute exacerbation Qualified Code(s): J44.1 - Chronic obstructive pulmonary disease with (acute) exacerbation (7) Diabetes Current Visit: No Status: Acute Assessment and plan: AM fasting glucose slightly elevated Plan: Continue diet control Qualifiers: Diabetes mellitus type: type 2 Diabetes mellitus mcc insulin use: without mcc use Diabetes mellitus complication status: with other specified complication Qualified Code(s): E11.69 - Type 2 diabetes mellitus with other specified complication (8) DVT prophylaxis Current Visit: Yes Status: Acute Assessment and plan: EPCD in setting of acute anemia. - Time Spent With Patient Total time spent is greater than 50% in coordination of care (as documented) at patient's floor/unit and/or counseling patient: - Subjective Interval history: Pt seen and examined, sitting up in the chair. He denies any abdominal pain, cp , sob, n/v, dizziness. - Constitutional Vitals: Temp Pulse Resp BP Pulse Ox 98.2 F 72 18 120/65 97 04/13/18 07:50 04/13/18 07:50 04/13/18 07:50 04/13/18 07:50 04/13/18 07:50 General appearance: Present: disheveled, A&O X 3, no acute distress, answers questions appropriately - Head Head exam: Present: atraumatic, normocephalic - Eye Eye exam: Present: PERRL, conjuntiva pink, sclera anicteric Pupils: Present: PERRL - Neck Neck exam general surgery: Present: supple, trachea midline. Absent: lymphadenopathy - Respiratory Respiratory exam: Present: CTAB. Absent: accessory muscle use, rales, rhonchi, wheezes - Cardiovascular Cardiovascular exam: Present: RRR, +S1, +S2. Absent: diastolic murmur, gallop, rubs, systolic murmur - GI/Abdominal GI/Abdominal exam: Present: normal bowel sounds, soft, no peritoneal signs. Absent: distended, tenderness - Extremities Exam Extremities exam: Present: pedal edema (1+ pitting), warm, radial pulses palpable and symmetrical. Absent: calf tenderness, cyanotic - Back Exam Additional comments: eccymosis over coccyx - Neurological Exam Neurological exam: Present: CN II-XII intact, oriented X3, no focal deficits. Absent: facial droop, speech deficit - Psychiatric Psychiatric exam: Present: normal affect, normal mood - Skin Skin exam: Present: dry, intact Internal Medicine: Result - Labs CBC & Chem 7: 04/13/18 03:46 04/13/18 03:46 Labs: Short CBC 04/12/18 04/12/18 04/13/18 Range/Units 13:31 19:42 03:46 WBC 13.0 H (4.3-11.1) K/mcL Hgb 7.4 L 7.2 L 7.4 L (12.9-16.9) g/dL Hct 23.2 L 22.5 L 23.9 L (37.5-50.1) % Plt Count 256 (140-400) K/mcL Neutrophils # 9.8 H (1.6-8.9) K/mcL BMP 04/12/18 04/12/18 04/13/18 08:36 12:07 03:46 Sodium 127 L 129 L 132 L Potassium 4.7 4.0 4.4 Chloride 95 L 96 L 101 Carbon Dioxide 24 20 L 23 BUN 29 H 29 H 27 H Creatinine 0.72 0.78 0.73 Glucose 96 87 124 H Calcium 8.4 L 8.4 L 8.2 L Cardiac Enzymes 04/12/18 Range/Units 12:07 Troponin I 0.34 H* (< 0.04) ng/mL - VTE Documentation of Mechanical Device: Intermittent pneumatic compression device Consult Discharge Plan - Plan [facility]errals: [facility]Primary Care Provider[facility] - <Latonia Jacobo - Last Filed: 04/13/18 18:55> Date of Encounter: 04/13/18 - Assessment and plan (1) Elevated troponin Current Visit: Yes Status: Acute (2) COPD (chronic obstructive pulmonary disease) Current Visit: No Status: Acute Qualifiers: COPD type: COPD with acute exacerbation Qualified Code(s): J44.1 - Chronic obstructive pulmonary disease with (acute) exacerbation (3) Coronary artery disease Current Visit: No Status: Acute Qualifiers: Coronary Disease-Associated Artery/Lesion type: [place] artery [place] vs. transplanted heart: [place] heart Associated angina: without angina Qualified Code(s): I25.10 - Atherosclerotic heart disease of [place] coronary artery without angina pectoris (4) Diabetes Current Visit: No Status: Acute Qualifiers: Diabetes mellitus type: type 2 Diabetes mellitus exterminator helper insulin use: without exterminator helper use Diabetes mellitus complication status: with other specified complication Qualified Code(s): E11.69 - Type 2 diabetes mellitus with other specified complication (5) GI bleed Current Visit: Yes Status: Acute (6) Anemia Current Visit: Yes Status: Acute Qualifiers: Anemia type: unspecified type Qualified Code(s): D64.9 - Anemia, unspecified (7) CHF exacerbation Current Visit: Yes Status: Acute Qualifiers: Heart failure type: diastolic Qualified Code(s): I50.33 - Acute on chronic diastolic (congestive) heart failure (8) DVT prophylaxis Current Visit: Yes Status: Acute - Time Spent With Patient Total time spent is greater than 50% in coordination of care (as documented) at patient's floor/unit and/or counseling patient: - Constitutional Vitals: Temp Pulse Resp BP Pulse Ox 98.6 F 76 18 98/61 99 04/13/18 15:38 04/13/18 15:38 04/13/18 15:38 04/13/18 15:38 04/13/18 15:38 Internal Medicine: Result - Labs CBC & Chem 7: 04/13/18 03:46 04/13/18 03:46 Labs: Short CBC 04/12/18 04/13/18 Range/Units 19:42 03:46 WBC 13.0 H (4.3-11.1) K/mcL Hgb 7.2 L 7.4 L (12.9-16.9) g/dL Hct 22.5 L 23.9 L (37.5-50.1) % Plt Count 256 (140-400) K/mcL Neutrophils # 9.8 H (1.6-8.9) K/mcL BMP 04/13/18 03:46 Sodium 132 L Potassium 4.4 Chloride 101 Carbon Dioxide 23 BUN 27 H Creatinine 0.73 Glucose 124 H Calcium 8.2 L - Impressions Impressions Echocardiogram 04/12/18 23:08 Impressions: LVEF 50%. Normal LV wall thickness and overall function. Mildly dilated left ventricle. Atypical septal motion consistent with post-operative status. Indeterminate diastolic function. Normal right ventricular structure and function. Aortic valve not well visualized. Grossly, aortic leaflets are calcified. Mild aortic stenosis. Mean gradient 18 mmHg. Peak velocity 3.18 m/s. Moderate aortic regurgitation. Moderate mitral annular calcification. Moderate mitral stenosis. Mean gradient 7 mmHg (HR 76 ). Mild mitral regurgitation. Mild pulmonary hypertension. Left Ventricular Wall Motion: Rest Echo Findings The mid inferior and basal inferior be were hypokinetic. All other wall segments showed normal motion. Findings: Study Quality * Technically adequate exam. ECG Findings * Atrial fibrillation. Left Ventricle * LVEF 50%. * Normal LV wall thickness and overall function. * Mildly dilated left ventricle. * Atypical septal motion consistent with post-operative status. * Indeterminate diastolic function. Right Ventricle * Normal right ventricular structure and function. Left Atrium * Severely dilated left atrium. Right Atrium * Normal right atrial size. Aortic Valve * Aortic valve not well visualized. * Grossly, aortic leaflets are calcified. * Mild aortic stenosis. Mean gradient 18 mmHg. Peak velocity 3.18 m/s. * Moderate aortic regurgitation. Mitral Valve * Moderate mitral annular calcification. * Mild mitral regurgitation. * Moderate mitral stenosis. Mean gradient 7 mmHg (HR 76 ). Tricuspid Valve * Normal tricuspid valve structure and function. * Trace tricuspid regurgitation. * Mild pulmonary hypertension. Pulmonic Valve * Pulmonic valve is not well visualized. * No pulmonic regurgitation. Aorta * Normally sized aortic root. Pericardium * The pericardium appears normal. IVC * Normal IVC dimensions and inspiratory collapse. Pulmonary Artery * Normal visualized portions of the main pulmonary artery. - Attending Attestation I examined this patient and my medical decision-making was reviewed with the Resident Physician. I agree with the documented findings, disposition and treatment plan as described except to the extent set forth below.
[2018-04-13] MEDS: Furosemide 40 MG/4 ML VIAL IVP SCH (10:52)
--- NOTE | 2018-04-13 11:36 | Cardiology Progress Note ---
Date of Encounter: 04/13/18 Time of Encounter: 11:33 Assessment and Plan (1) Elevated troponin Current Visit: Yes Status: Acute Elevated troponin 0.73 ([facility]), 0.21, 0.34, 0.34, in the setting of CHF exacerbation and acute anemia requiring blood transfusion. Demand ischemia. EKG shows SR with inferior ST changes unchanged from previous. New non-specific T wave changes in the anteriorlateral leads. He denies chest pain or SOB currently. He is not a candidate for LHC at this time due to anemia with concern for GI bleed. Check TTE. No heparin gtt due to anemia. Restart asa when felt to be safe from bleeding [place]. Continue statin and bb. (2) CHF exacerbation Current Visit: Yes Status: Acute Presents with acute CHF. H/o preserved EF. Last TTE in 2016 showed EF 60%. Mild fluid overload on exam. BNP 6000. Reports prior hospitalization with CHF. Re-peat TTE to assess LV function. IV diuresis as tolerated. Currently on 40 mg IV BID. Net negative 2500 ml. Symptoms improved. Low sodium diet and daily weights. Start maintenance lasix at discharge. 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 Previous cardiac testing reviewed: JESSICA- LVEF 60%. Normal LV size and function. The right ventricle was normal in size and systolic function. Trileaflet aortic valve. The non and left coronary cusps are mildly sclerotic. The noncoronary cusp is calcified with reduced mobility. Moderate aortic regurgitation. Mild aortic stenosis suggested by TTE on (mean gradient 16 mmHg). Transvalvular gradient could not be well obtained on this JESSICA. Moderate mitral annular calcification, especially posteriorly. Mild mitral regurgitation. No mitral stenosis. Unable to estimate RVSP due to lack of TR. TTE 09/15/17-LVEF 60%. Normal LV chamber size and function. Mild left ventricular diastolic dysfunction. Mild concentric left ventricular hypertrophy. Atypical septal motion consistent with post-operative status. Normal right ventricular structure and function. Aortic valve not well visualized. Grossly, the aortic valve appears mildly calcified. Grossly, mild- moderate aortic regurgitation, which was not well visualized and could be underestimated. Mild aortic stenosis. Mean gradient 14 mmHg. Moderate mitral annular calcification. Mild mitral stenosis. Mean gradient 5 mmHg. Unable to estimate RVSP due to lack of TR jet. Continue medical management. check TTE. Qualifiers: Coronary Disease-Associated Artery/Lesion type: [place] artery [place] vs. transplanted heart: [place] heart Associated angina: without angina Qualified Code(s): I25.10 - Atherosclerotic heart disease of [place] coronary artery without angina pectoris (4) Anemia Current Visit: Yes Status: Acute Hgb 7.0 on admit with c/o black tarry stools. S/p 1 unit PRBC. Per primary team. Qualifiers: Anemia type: unspecified type Qualified Code(s): D64.9 - Anemia, unspecified Discussion w patient/family: The assessment and plan as outlined above was discussed with the patient and/or family members who expressed understanding and agreement. All questions were answered. Thank you for involving us in the care of your patient. Please call with any questions. Subjective Principal diagnosis: SOB Interval history: Mr. Amaya reports SOB and BLE edema improved. S/p EGD earlier today. Objective Vital Signs, Last 4 Hours Temp Pulse Resp BP Pulse Ox 04/13/18 11:19 98.3 F 76 18 99/57 99 04/13/18 10:49 78 18 127/56 96 04/13/18 07:50 98.2 F 72 18 120/65 97 General: Conversant, No Apparent Distress HEENT: Atraumatic, Normocephaly, Mucus Membranes Moist Neck: No JVD, Normal carotid pulses Cardiac: Reg Rate and Rhythm, Normal S1 and S2, No Murmur Lungs: Normal Breath Sounds, No Wheeze, Rales, Rhonchi Neuro: Alert and responsive, No focal deficits noted Abdomen: Soft, Non-Tender Skin: No rashes noted on visualized skin Musculoskeletal: No Chest Wall Tenderness Extremities: No Clubbing, No Cyanosis, Normal Pulses, Other (Trace edema in BLE ) Results 04/13/18 03:46 04/13/18 03:46 Lab Results 04/12/18 04/12/18 04/12/18 12:07 13:31 19:42 WBC Hgb 7.4 L 7.2 L Hct 23.2 L 22.5 L Plt Count Sodium 129 L Potassium 4.0 Chloride 96 L Carbon Dioxide 20 L BUN 29 H Creatinine 0.78 Glucose 87 Calcium 8.4 L Troponin I 0.34 H* 04/13/18 04/13/18 03:46 03:46 WBC 13.0 H Hgb 7.4 L Hct 23.9 L Plt Count 256 Sodium 132 L Potassium 4.4 Chloride 101 Carbon Dioxide 23 BUN 27 H Creatinine 0.73 Glucose 124 H Calcium 8.2 L Troponin I - Imaging and Cardiology Echo: pending - EKG Interpretation EKG results cardiology: personally reviewed - VTE Documentation of Mechanical Device: Intermittent pneumatic compression device Consult Discharge Plan - Plan [facility]errals: [facility] [Primary Care Provider] -
[2018-04-14] MEDS: Pantoprazole 40 MG VIAL IVP SCH ×2 (05:26→17:39)
[2018-04-14 06:43] LABS: Basophils % 0.3 %; Eosinophils % 0.3 %; Hematocrit 23.2 % (37.5-50.1); Hemoglobin 7.1 g/dL (12.9-16.9); Lymphocytes # 2.5 K/mcL (0.6-4.6); Lymphocytes % 20.7 %; Mean Corpuscular HGB Conc 30.6 g/dL (31.6-35.5); Mean Corpuscular Volume 88.2 fL (83.0-100.0); Monocytes # 1.2 K/mcL (0.0-1.3); Monocytes % 9.7 %; Neutrophils # 8.1 K/mcL (1.6-8.9); Nucleated Red Blood Cells 0.5 /100 WBC (0); Platelet Count 221 K/mcL (140-400); Red Blood Count 2.63 M/mcL (4.19-5.50); Red Cell Distribution Width 16.8 % (11.5-14.5)
[2018-04-14 06:53] LABS: BUN/Creatinine Ratio 38 (6-26); Blood Urea Nitrogen 25 mg/dL (8-23); Calcium 8.3 mg/dL (8.6-10.3); Carbon Dioxide 28 mEq/L (23-29); Chloride 100 mEq/L (98-107); Glucose 119 mg/dL (70-105); Osmolality,Calculated 280 (280-300); Potassium 3.9 mEq/L (3.5-5.1); Sodium 132 mEq/L (136-145); eGFR For African Americans > 60 (> 60); eGFR For Non-African Americans > 60 (> 60)
[2018-04-14] MEDS: Nicotine 21 MG PATCH.TD24 TD SCH (07:59)
[2018-04-14] MEDS: Sucralfate 1 GM TABLET PO SCH ×2 (07:59→15:35)
[2018-04-14] MEDS: Magnesium Oxide 400 MG TABLET PO SCH ×2 (07:59→20:37)
[2018-04-14] MEDS: amLODIPine 5 MG TABLET PO SCH (07:59)
[2018-04-14] MEDS: Multivit/Ca/Min/Fe/FA 1 TAB TABLET PO SCH (07:59)
[2018-04-14] MEDS: Furosemide 40 MG/4 ML VIAL IVP SCH (08:01)
[2018-04-14] MEDS: Artificial Tears SOLN 15 ML BOTTLE OP SCH ×3 (08:03→20:38)
--- NOTE | 2018-04-14 08:57 | Internal Med Progress Note ---
<Namrata Archuleta - Last Filed: 04/14/18 15:14> Date of Encounter: 04/14/18 Time of Encounter: 08:55 - Assessment and plan (1) GI bleed Current Visit: Yes Status: Acute Assessment and plan: Patient presented with black stool with decreased hemoglobin level. Transfused 1 unit PRBC at admission. Concern for UGI bleed. EGD demonstrated non-bleeding gastric ulcers with no stigmata of bleeding, which were biopsied. Pathology pending. Hgb slightly decreased to 7.1 Pt has been accepted by [facility], anticipate discharge on Tuesday as medically able. Plan: Transfuse 2 units PRBCs Will continue daily PPI therapy, TID carafate per GI. GI consulted, appreciate their recommendations. Closely monitor H&H and vitals Transfusion as necessary Continue IV protonix Qualifiers: GI bleed type/associated pathology: melena Qualified Code(s): K92.1 - Melena (2) Anemia Current Visit: Yes Status: Acute Assessment and plan: Management as above Qualifiers: Anemia type: unspecified type Qualified Code(s): D64.9 - Anemia, unspecified (3) CHF exacerbation Current Visit: Yes Status: Acute Assessment and plan: Patient presented with increased SOB, elevated BNP, bilateral leg swelling, and chest x-ray consistent with CHF. Previous echo reviewed, LVEF 60% ECHO shows decreased LVEF from previous at 50% Plan: Strict I/Os Fluid restriction of 1.5L daily Daily Weights Lasix 40mg IV twice a day Will give 20mg IV lasix in between transfusions of blood today Advised pt to elevate legs as able to manage lower extremity edema. Cardiology is following, appreciate their recommendations. Qualifiers: Heart failure type: diastolic Qualified Code(s): I50.33 - Acute on chronic diastolic (congestive) heart failure (4) Elevated troponin Current Visit: Yes Status: Acute Assessment and plan: Pt evaluated by cardiology, likely secondary to demand ischemia in the setting of acute anemia requiring blood transfusion. Pt not a candidate for [facility] currently due to anemia and concern for GI bleed. ECHO shows worsened LVEF at 50% Plan: Restart ASA when safe Continue statin (5) Coronary artery disease Current Visit: No Status: Acute Assessment and plan: Denies chest pain. Patient had elevated troponin and EKG change. Troponin adynamic. Cardiology following, not currently [facility] candidate with acute anemia. Demand ischemia vs NSTEMI Plan: Continue medical management Qualifiers: Coronary Disease-Associated Artery/Lesion type: three affiliated artery [place] vs. transplanted heart: three affiliated heart Associated angina: without angina Qualified Code(s): I25.10 - Atherosclerotic heart disease of [place] coronary artery without angina pectoris (6) COPD (chronic obstructive pulmonary disease) Current Visit: No Status: Acute Assessment and plan: Stable. Pt not on oxygen at home. He has been on 2L, I took him off and he is 90 -92% on RA. Given his COPD it is acceptable to keep him at 89-92%. Plan: Wean O2, keep off if sats tolerate it. Keep sats at 89-92% Continue home medications Qualifiers: COPD type: COPD with acute exacerbation Qualified Code(s): J44.1 - Chronic obstructive pulmonary disease with (acute) exacerbation (7) Diabetes Current Visit: No Status: Acute Assessment and plan: AM fasting glucose slightly elevated Plan: Continue diet control Qualifiers: Diabetes mellitus type: type 2 Diabetes mellitus correction insulin use: without training program assistant use Diabetes mellitus complication status: with other specified complication Qualified Code(s): E11.69 - Type 2 diabetes mellitus with other specified complication (8) DVT prophylaxis Current Visit: Yes Status: Acute Assessment and plan: EPCD in setting of acute anemia. - Time Spent With Patient Total time spent is greater than 50% in coordination of care (as documented) at patient's floor/unit and/or counseling patient: - Subjective Interval history: Pt seen and examined, sitting up on the side of the bed. He states that he is feeling well overall, he occasionally is dizzy when going from sitting to standing. He states that he walked with PT yesterday in the [place] and it went well. 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 He denies any abdominal pain, cp, sob, n/v, dizziness. - Constitutional Vitals: Temp Pulse Resp BP Pulse Ox 98.1 F 72 18 121/50 97 04/14/18 07:21 04/14/18 08:17 04/14/18 07:21 04/14/18 07:21 04/14/18 07:21 General appearance: Present: disheveled, A&O X 3, no acute distress, answers questions appropriately - Head Head exam: Present: atraumatic, normocephalic - Eye Eye exam: Present: PERRL, conjuntiva pink, sclera anicteric Pupils: Present: PERRL - Neck Neck exam general surgery: Present: normal inspection, supple, trachea midline - Respiratory Respiratory exam: Present: CTAB. Absent: accessory muscle use, rales, respiratory distress, rhonchi, stridor, wheezes, tachypnea - Cardiovascular Cardiovascular exam: Present: RRR, +S1, +S2. Absent: diastolic murmur, gallop, rubs, systolic murmur - GI/Abdominal GI/Abdominal exam: Present: normal bowel sounds, soft, no peritoneal signs. Absent: distended, tenderness - Extremities Exam Extremities exam: Present: normal capillary refill, normal inspection, pedal edema (trace edema right LE). Absent: calf tenderness - Neurological Exam Neurological exam: Present: oriented X3, no focal deficits. Absent: facial droop, speech deficit - Psychiatric Psychiatric exam: Present: normal affect, normal mood - Skin Skin exam: Present: dry, intact, warm Internal Medicine: Result - Labs CBC & Chem 7: 04/14/18 06:04 04/14/18 06:04 Labs: Short CBC 04/14/18 Range/Units 06:04 WBC 11.9 H (4.3-11.1) K/mcL Hgb 7.1 L (12.9-16.9) g/dL Hct 23.2 L (37.5-50.1) % Plt Count 221 (140-400) K/mcL Neutrophils # 8.1 (1.6-8.9) K/mcL BMP 04/14/18 06:04 Sodium 132 L Potassium 3.9 Chloride 100 Carbon Dioxide 28 BUN 25 H Creatinine 0.66 L Glucose 119 H Calcium 8.3 L - Impressions Impressions Echocardiogram 04/12/18 23:08 Impressions: LVEF 50%. Normal LV wall thickness and overall function. Mildly dilated left ventricle. Atypical septal motion consistent with post-operative status. Indeterminate diastolic function. Normal right ventricular structure and function. Aortic valve not well visualized. Grossly, aortic leaflets are calcified. Mild aortic stenosis. Mean gradient 18 mmHg. Peak velocity 3.18 m/s. Moderate aortic regurgitation. Moderate mitral annular calcification. Moderate mitral stenosis. Mean gradient 7 mmHg (HR 76 ). Mild mitral regurgitation. Mild pulmonary hypertension. Left Ventricular Wall Motion: Rest Echo Findings The mid inferior and basal inferior be were hypokinetic. All other wall segments showed normal motion. Findings: Study Quality * Technically adequate exam. ECG Findings * Atrial fibrillation. Left Ventricle * LVEF 50%. * Normal LV wall thickness and overall function. * Mildly dilated left ventricle. * Atypical septal motion consistent with post-operative status. * Indeterminate diastolic function. Right Ventricle * Normal right ventricular structure and function. Left Atrium * Severely dilated left atrium. Right Atrium * Normal right atrial size. Aortic Valve * Aortic valve not well visualized. * Grossly, aortic leaflets are calcified. * Mild aortic stenosis. Mean gradient 18 mmHg. Peak velocity 3.18 m/s. * Moderate aortic regurgitation. Mitral Valve * Moderate mitral annular calcification. * Mild mitral regurgitation. * Moderate mitral stenosis. Mean gradient 7 mmHg (HR 76 ). Tricuspid Valve * Normal tricuspid valve structure and function. * Trace tricuspid regurgitation. * Mild pulmonary hypertension. Pulmonic Valve * Pulmonic valve is not well visualized. * No pulmonic regurgitation. Aorta * Normally sized aortic root. Pericardium * The pericardium appears normal. IVC * Normal IVC dimensions and inspiratory collapse. Pulmonary Artery * Normal visualized portions of the main pulmonary artery. - VTE Documentation of Mechanical Device: Intermittent pneumatic compression device Consult Discharge Plan - Plan [facility]errals: [facility] [Primary Care Provider[facility] - <Latonia Jacobo - Last Filed: 04/14/18 17:24> Date of Encounter: 04/14/18 - Assessment and plan (1) Elevated troponin Current Visit: Yes Status: Acute (2) COPD (chronic obstructive pulmonary disease) Current Visit: No Status: Acute Qualifiers: COPD type: COPD with acute exacerbation Qualified Code(s): J44.1 - Chronic obstructive pulmonary disease with (acute) exacerbation (3) Coronary artery disease Current Visit: No Status: Acute Qualifiers: Coronary Disease-Associated Artery/Lesion type: three affiliated artery [place] vs. transplanted heart: three affiliated heart Associated angina: without angina Qualified Code(s): I25.10 - Atherosclerotic heart disease of three [place] coronary artery without angina pectoris (4) Diabetes Current Visit: No Status: Acute Qualifiers: Diabetes mellitus type: type 2 Diabetes mellitus training program assistant insulin use: without correction use Diabetes mellitus complication status: with other specified complication Qualified Code(s): E11.69 - Type 2 diabetes mellitus with other specified complication (5) GI bleed Current Visit: Yes Status: Acute (6) Anemia Current Visit: Yes Status: Acute Qualifiers: Anemia type: unspecified type Qualified Code(s): D64.9 - Anemia, unspecified (7) CHF exacerbation Current Visit: Yes Status: Acute Qualifiers: Heart failure type: diastolic Qualified Code(s): I50.33 - Acute on chronic diastolic (congestive) heart failure (8) DVT prophylaxis Current Visit: Yes Status: Acute - Time Spent With Patient Total time spent is greater than 50% in coordination of care (as documented) at patient's floor/unit and/or counseling patient: - Constitutional Vitals: Temp Pulse Resp BP Pulse Ox 98.2 F 75 18 127/62 94 04/14/18 17:17 04/14/18 17:17 04/14/18 17:17 04/14/18 17:17 04/14/18 16:10 Internal Medicine: Result - Labs CBC & Chem 7: 04/14/18 06:04 04/14/18 06:04 Labs: Short CBC 04/14/18 Range/Units 06:04 WBC 11.9 H (4.3-11.1) K/mcL Hgb 7.1 L (12.9-16.9) g/dL Hct 23.2 L (37.5-50.1) % Plt Count 221 (140-400) K/mcL Neutrophils # 8.1 (1.6-8.9) K/mcL BMP 04/14/18 06:04 Sodium 132 L Potassium 3.9 Chloride 100 Carbon Dioxide 28 BUN 25 H Creatinine 0.66 L Glucose 119 H Calcium 8.3 L - Attending Attestation I examined this patient and my medical decision-making was reviewed with the Resident Physician. I agree with the documented findings, disposition and treatment plan as described except to the extent set forth below.
[2018-04-14] MEDS ORDERED: Furosemide 40 MG/4 ML VIAL IVP SCH (09:00)
[2018-04-14] MEDS ORDERED: 0.9 % Sodium Chloride 250 ML ONE (12:20)
[2018-04-14] MEDS ORDERED: Furosemide 20 MG/2 ML VIAL IVP ONE (14:36)
[2018-04-15 04:09] LABS: Basophils # 0.1 K/mcL (0.0-0.2); Basophils % 0.4 %; Eosinophils # 0.1 K/mcL (0.0-0.6); Eosinophils % 0.5 %; Hematocrit 30.6 % (37.5-50.1); Immature Granulocytes % 0.8 % (0-4); Lymphocytes # 2.2 K/mcL (0.6-4.6); Lymphocytes % 17.6 %; Mean Corpuscular Hemoglobin 26.9 pg (28.0-33.3); Mean Corpuscular Volume 86.7 fL (83.0-100.0); Monocytes # 1.1 K/mcL (0.0-1.3); Monocytes % 9.2 %; Neutrophils # 8.8 K/mcL (1.6-8.9); Nucleated Red Blood Cells 0.7 /100 WBC (0); Platelet Count 205 K/mcL (140-400); Red Blood Count 3.53 M/mcL (4.19-5.50); Red Cell Distribution Width 16.3 % (11.5-14.5); Segmented Neutrophils % 71.5 %
[2018-04-15 04:11] LABS: Hemoglobin 9.5 g/dL (12.9-16.9)
[2018-04-15 04:27] LABS: BUN/Creatinine Ratio 38 (6-26); Blood Urea Nitrogen 26 mg/dL (8-23); Calcium 8.5 mg/dL (8.6-10.3); Carbon Dioxide 29 mEq/L (23-29); Chloride 98 mEq/L (98-107); Glucose 139 mg/dL (70-105); Osmolality,Calculated 283 (280-300); Potassium 3.7 mEq/L (3.5-5.1); Sodium 133 mEq/L (136-145); eGFR For African Americans > 60 (> 60); eGFR For Non-African Americans > 60 (> 60)
[2018-04-15] MEDS: Pantoprazole 40 MG VIAL IVP SCH ×2 (05:40→16:32)
[2018-04-15] MEDS: Nicotine 21 MG PATCH.TD24 TD SCH (08:48)
[2018-04-15] MEDS: Magnesium Oxide 400 MG TABLET PO SCH ×2 (08:48→21:58)
[2018-04-15] MEDS: amLODIPine 5 MG TABLET PO SCH (08:48)
[2018-04-15] MEDS: Sucralfate 1 GM TABLET PO SCH ×2 (08:48→16:32)
[2018-04-15] MEDS: Multivit/Ca/Min/Fe/FA 1 TAB TABLET PO SCH (08:48)
[2018-04-15 09:23] LABS: INR 1.4; Prothrombin Time 14.7 Seconds (9.4-12.1)
[2018-04-15] MEDS: Artificial Tears SOLN 15 ML BOTTLE OP SCH ×3 (10:42→21:58)
[2018-04-15] MEDS: Furosemide 40 MG/4 ML VIAL IVP SCH ×2 (10:42→16:32)
--- NOTE | 2018-04-15 12:38 | Internal Med Progress Note ---
Date of Encounter: 04/15/18 Time of Encounter: 12:37 - Assessment and plan (1) Acute respiratory failure Current Visit: Yes Status: Acute Assessment and plan: Secondary to diastolic heart failure Also may have COPD component Attempt to decrease Lasix dose yesterday but patient had PND overnight - Continue fluid restriction/ADA diet - Increase Lasix back up to 40 mg BID - Add Solu medrol, Duo Neb therapy Qualifiers: Respiratory failure complication: hypoxia Qualified Code(s): J96.01 - Acute respiratory failure with hypoxia (2) CHF exacerbation Current Visit: Yes Status: Acute Assessment and plan: Patient presented with increased SOB, elevated BNP, bilateral leg swelling, and chest x-ray consistent with CHF. Previous echo reviewed, LVEF 60% ECHO shows decreased LVEF from previous at 50% Plan as above Qualifiers: Heart failure type: diastolic Qualified Code(s): I50.33 - Acute on chronic diastolic (congestive) heart failure (3) Elevated troponin Current Visit: Yes Status: Acute Assessment and plan: Pt evaluated by cardiology, likely secondary to demand ischemia in the setting of acute anemia requiring blood transfusion. Pt not a candidate for [facility] currently due to anemia and concern for GI bleed. ECHO shows worsened LVEF at 50% Plan: Restart ASA when safe Continue statin (4) COPD (chronic obstructive pulmonary disease) Current Visit: No Status: Acute Assessment and plan: Stable. Pt not on oxygen at home. He has been on 2L, I took him off and he is 90 -92% on RA. Given his COPD it is acceptable to keep him at 89-92%. Plan: Wean O2, keep off if sats tolerate it. Keep sats at 89-92% Continue home medications Qualifiers: COPD type: COPD with acute exacerbation Qualified Code(s): J44.1 - Chronic obstructive pulmonary disease with (acute) exacerbation (5) Coronary artery disease Current Visit: No Status: Acute Assessment and plan: Denies chest pain. Patient had elevated troponin and EKG change. Troponin adynamic. Cardiology following, not currently C candidate with acute anemia. Demand ischemia vs NSTEMI Plan: Continue medical management Qualifiers: Coronary Disease-Associated Artery/Lesion type: [place] artery [place] vs. transplanted heart: [place] heart Associated angina: without angina Qualified Code(s): I25.10 - Atherosclerotic heart disease of [place] coronary artery without angina pectoris (6) Diabetes Current Visit: No Status: Acute Assessment and plan: AM fasting glucose slightly elevated Plan: Continue diet control Qualifiers: Diabetes mellitus type: type 2 Diabetes mellitus long term care administrator insulin use: without long term care administrator use Diabetes mellitus complication status: with other specified complication Qualified Code(s): E11.69 - Type 2 diabetes mellitus with other specified complication (7) GI bleed Current Visit: Yes Status: Acute Assessment and plan: Patient presented with black stool with decreased hemoglobin level. Transfused 1 unit PRBC at admission. Concern for UGI bleed. EGD demonstrated non-bleeding gastric ulcers with no stigmata of bleeding, which were biopsied. Pathology pending. Hgb slightly decreased to 7.1 Pt has been accepted by [facility] inpatient rehab, anticipate discharge on Tuesday as medically able. Plan: Transfuse 2 units PRBCs Will continue daily PPI therapy, TID carafate per GI. GI consulted, appreciate their recommendations. Closely monitor H&H and vitals Transfusion as necessary Continue IV protonix (8) Anemia Current Visit: Yes Status: Acute Assessment and plan: Management as above Qualifiers: Anemia type: unspecified type Qualified Code(s): D64.9 - Anemia, unspecified (9) DVT prophylaxis Current Visit: Yes Status: Acute Assessment and plan: EPCD in setting of acute anemia. - Time Spent With Patient Total time spent is greater than 50% in coordination of care (as documented) at patient's floor/unit and/or counseling patient: - Subjective Interval history: Patient complains of episodes of shortness of breath overnight. Denies chest pain, palpitations, fevers/chills. - Constitutional Vitals: Temp Pulse Resp BP Pulse Ox 97.8 F 65 20 96/63 98 04/15/18 11:24 04/15/18 11:24 04/15/18 11:24 04/15/18 11:24 04/15/18 07:51 General appearance: Present: disheveled, A&O X 3, no acute distress, answers questions appropriately Exam: CVS: RRR Lungs: fair air exchange, fine rales at bases, end exp wheezing Abd: some abdominal distention noted, soft, non tender Ext: 1 + bipedal edema. Internal Medicine: Result - Labs CBC & Chem 7: 04/15/18 03:48 04/15/18 03:48 Labs: Short CBC 04/15/18 Range/Units 03:48 WBC 12.2 H (4.3-11.1) K/mcL Hgb 9.5 L D (12.9-16.9) g/dL Hct 30.6 L (37.5-50.1) % Plt Count 205 (140-400) K/mcL Neutrophils # 8.8 (1.6-8.9) K/mcL BMP 04/15/18 03:48 Sodium 133 L Potassium 3.7 Chloride 98 Carbon Dioxide 29 BUN 26 H Creatinine 0.69 L Glucose 139 H Calcium 8.5 L - ABG Interpretation ABG results: PT/INR, D-dimer PT 14.7 Seconds (9.4-12.1) H 04/15/18 09:01 - VTE Documentation of Mechanical Device: Intermittent pneumatic compression device Consult Discharge Plan - Plan [facility]errals: [facility] [Primary Care Provider] -
[2018-04-15] MEDS: Ipratropium/Albuterol Neb 3 ML IH SCH ×2 (15:57→21:23)
[2018-04-15] MEDS ORDERED: Melatonin 3 MG TABLET PO PRN (16:20)
[2018-04-15] MEDS: MethylPREDNISolone 40 MG/ML VIAL IVP SCH ×2 (16:32→23:55)
[2018-04-16 03:42] LABS: Hematocrit 29.6 % (37.5-50.1); Hemoglobin 9.1 g/dL (12.9-16.9)
[2018-04-16 03:57] LABS: BUN/Creatinine Ratio 36 (6-26); Blood Urea Nitrogen 26 mg/dL (8-23); Calcium 8.5 mg/dL (8.6-10.3); Carbon Dioxide 29 mEq/L (23-29); Chloride 99 mEq/L (98-107); Glucose 212 mg/dL (70-105); Osmolality,Calculated 289 (280-300); Potassium 3.7 mEq/L (3.5-5.1); Sodium 134 mEq/L (136-145); eGFR For African Americans > 60 (> 60); eGFR For Non-African Americans > 60 (> 60)
[2018-04-16] MEDS: Pantoprazole 40 MG VIAL IVP SCH ×2 (05:43→17:00)
[2018-04-16] MEDS: Ipratropium/Albuterol Neb 3 ML IH SCH ×4 (07:23→22:48)
[2018-04-16] MEDS: Multivit/Ca/Min/Fe/FA 1 TAB TABLET PO SCH (08:56)
[2018-04-16] MEDS: MethylPREDNISolone 40 MG/ML VIAL IVP SCH (08:56)
[2018-04-16] MEDS: Sucralfate 1 GM TABLET PO SCH ×2 (08:56→17:00)
[2018-04-16] MEDS: Magnesium Oxide 400 MG TABLET PO SCH ×2 (08:56→20:08)
[2018-04-16] MEDS: Nicotine 21 MG PATCH.TD24 TD SCH (08:56)
[2018-04-16] MEDS: Furosemide 40 MG/4 ML VIAL IVP SCH ×2 (08:56→17:00)
[2018-04-16] MEDS: Artificial Tears SOLN 15 ML BOTTLE OP SCH ×3 (08:59→20:09)
--- NOTE | 2018-04-16 16:57 | Internal Med Progress Note ---
Date of Encounter: 04/16/18 Time of Encounter: 16:53 - Assessment and plan (1) GI bleed Current Visit: Yes Status: Acute Assessment and plan: Patient presented with black stool with decreased hemoglobin level. Transfused 1 unit PRBC at admission. Concern for UGI bleed. EGD demonstrated non-bleeding gastric ulcers with no stigmata of bleeding, which were biopsied. Pathology pending. Hgb slightly decreased to 7.1 Pt has been accepted by [place] inpatient rehab, anticipate discharge on Tuesday as medically able. Plan: Will continue daily PPI therapy, TID carafate Disposition: Awaiting placement. (2) Acute respiratory failure Current Visit: Yes Status: Acute Assessment and plan: Secondary to diastolic heart failure, probable COPD component as well. Attempt to decrease Lasix dose yesterday but patient had dyspnea overnight afterwords - Continue fluid restriction/ADA diet - Increase Lasix back up to 40 mg BID IV on 04/15 - Continue Duo Nebs - Taper Solu Medrol - Follow-up CXR today. Qualifiers: Respiratory failure complication: hypoxia Qualified Code(s): J96.01 - Acute respiratory failure with hypoxia (3) CHF exacerbation Current Visit: Yes Status: Acute Assessment and plan: Patient presented with increased SOB, elevated BNP, bilateral leg swelling, and chest x-ray consistent with CHF. Previous echo reviewed, LVEF 60% ECHO shows decreased LVEF from previous at 50% Plan as above Qualifiers: Heart failure type: diastolic Qualified Code(s): I50.33 - Acute on chronic diastolic (congestive) heart failure (4) Anemia Current Visit: Yes Status: Acute Assessment and plan: Management as above Qualifiers: Anemia type: unspecified type Qualified Code(s): D64.9 - Anemia, unspecified (5) Elevated troponin Current Visit: Yes Status: Acute Assessment and plan: Pt evaluated by cardiology, likely secondary to demand ischemia in the setting of acute anemia requiring blood transfusion. Pt not a candidate for [facility] currently due to anemia and concern for GI bleed. ECHO shows worsened LVEF at 50% Plan: Restart ASA when safe Continue statin (6) COPD (chronic obstructive pulmonary disease) Current Visit: No Status: Acute Assessment and plan: Stable. Pt not on oxygen at home. He has been on 2L, I took him off and he is 90 -92% on RA. Given his COPD it is acceptable to keep him at 89-92%. Plan: Wean O2, keep off if sats tolerate it. Keep sats at 89-92% Continue home medications Qualifiers: COPD type: COPD with acute exacerbation Qualified Code(s): J44.1 - Chronic obstructive pulmonary disease with (acute) exacerbation (7) Coronary artery disease Current Visit: No Status: Acute Assessment and plan: Denies chest pain. Patient had elevated troponin and EKG change. Troponin adynamic. Cardiology following, not currently [facility] candidate with acute anemia. Demand ischemia vs NSTEMI Plan: Continue medical management Qualifiers: Coronary Disease-Associated Artery/Lesion type: [place] artery [place] vs. transplanted heart: [place] heart Associated angina: without angina Qualified Code(s): I25.10 - Atherosclerotic heart disease of [place] coronary artery without angina pectoris (8) Diabetes Current Visit: No Status: Acute Assessment and plan: AM fasting glucose slightly elevated Plan: Continue diet control Qualifiers: Diabetes mellitus type: type 2 Diabetes mellitus fdc insulin use: without fdc use Diabetes mellitus complication status: with other specified complication Qualified Code(s): E11.69 - Type 2 diabetes mellitus with other specified complication (9) DVT prophylaxis Current Visit: Yes Status: Acute Assessment and plan: EPCD in setting of acute anemia. - Time Spent With Patient Total time spent is greater than 50% in coordination of care (as documented) at patient's floor/unit and/or counseling patient: - Subjective Interval history: No complaints of dyspnea today. Says yesterday evening he had an episode of dark stool. - Constitutional Vitals: Temp Pulse Resp BP Pulse Ox 98.0 F 68 20 131/67 100 04/16/18 11:11 04/16/18 11:11 04/16/18 11:11 04/16/18 11:11 04/16/18 10:03 General appearance: Present: disheveled, A&O X 3, no acute distress, answers questions appropriately Exam: CVS: RRR Lungs: fair air exchange, coarse rales, no wheezing on today's exam Abd: some abdominal distention noted, soft, non tender Ext: 1 + bipedal edema. Internal Medicine: Result - Labs CBC & Chem 7: 04/16/18 03:03 04/16/18 03:03 Labs: Short CBC 04/16/18 Range/Units 03:03 Hgb 9.1 L (12.9-16.9) g/dL Hct 29.6 L (37.5-50.1) % BMP 04/16/18 03:03 Sodium 134 L Potassium 3.7 Chloride 99 Carbon Dioxide 29 BUN 26 H Creatinine 0.73 Glucose 212 H Calcium 8.5 L - ABG Interpretation ABG results: PT/INR, D-dimer PT 14.7 Seconds (9.4-12.1) H 04/15/18 09:01 - VTE Documentation of Mechanical Device: Intermittent pneumatic compression device Consult Discharge Plan - Plan Referrals: [facility] [Primary Care Provider] -
[2018-04-17] MEDS: MethylPREDNISolone 40 MG/ML VIAL IVP SCH ×2 (01:32→08:29)
[2018-04-17] MEDS: Ipratropium/Albuterol Neb 3 ML IH SCH ×2 (04:15→11:15)
[2018-04-17 04:48] LABS: Hematocrit 28.1 % (37.5-50.1); Hemoglobin 8.7 g/dL (12.9-16.9)
[2018-04-17 05:11] LABS: BUN/Creatinine Ratio 48 (6-26); Blood Urea Nitrogen 30 mg/dL (8-23); Calcium 8.8 mg/dL (8.6-10.3); Carbon Dioxide 30 mEq/L (23-29); Chloride 100 mEq/L (98-107); Glucose 163 mg/dL (70-105); Osmolality,Calculated 292 (280-300); Sodium 136 mEq/L (136-145); eGFR For African Americans > 60 (> 60); eGFR For Non-African Americans > 60 (> 60)
[2018-04-17] MEDS: Pantoprazole 40 MG VIAL IVP SCH (05:47)
[2018-04-17] MEDS: Sucralfate 1 GM TABLET PO SCH (05:47)
[2018-04-17 07:30] VITALS: BP 113/65
[2018-04-17] MEDS: Nicotine 21 MG PATCH.TD24 TD SCH (08:29)
[2018-04-17] MEDS: Magnesium Oxide 400 MG TABLET PO SCH (08:29)
[2018-04-17] MEDS: Furosemide 40 MG/4 ML VIAL IVP SCH (08:29)
[2018-04-17] MEDS: Multivit/Ca/Min/Fe/FA 1 TAB TABLET PO SCH (08:29)
[2018-04-17] MEDS: Artificial Tears SOLN 15 ML BOTTLE OP SCH (08:33)
--- NOTE | 2018-04-17 09:50 | Discharge Summary ---
<Namrata Archuleta - Last Filed: 04/17/18 17:18> - NOTES TO OUTPATIENT PROVIDER Notes to Outpatient Provider: Patient has non-bleeding gastric ulcers on EGD. Will need daily PPI therapy and TID carafate. Will need follow up with GI. Will need hemoglobin monitored. Patient discharged on 40mg PO lasix, dosing will need to be readressed as this is not a home med. Patient will need to comply with strict 1.5 Liter Fluid Restriction. Orders not resulted at time of discharge: Pending orders 04/17/18 08:24 CXR, PA/Lateral [XR chest 2V] [XR] Routine Date of Encounter: 04/17/18 Time of Encounter: 09:47 - Discharge Diagnosis (1) GI bleed Priority: Primary Status: Resolved Qualifiers: GI bleed type/associated pathology: melena Qualified Code(s): K92.1 - Melena (2) Anemia Priority: Secondary Status: Acute Qualifiers: Anemia type: unspecified type Qualified Code(s): D64.9 - Anemia, unspecified (3) CHF exacerbation Priority: Secondary Status: Acute Qualifiers: Heart failure type: diastolic Qualified Code(s): I50.33 - Acute on chronic diastolic (congestive) heart failure (4) Elevated troponin Priority: Secondary Status: Acute (5) COPD (chronic obstructive pulmonary disease) Priority: Secondary Status: Chronic Qualifiers: COPD type: COPD with acute exacerbation Qualified Code(s): J44.1 - Chronic obstructive pulmonary disease with (acute) exacerbation (6) Coronary artery disease Priority: Secondary Status: Chronic Qualifiers: Coronary Disease-Associated Artery/Lesion type: [place] artery [place] vs. transplanted heart: [place] heart Associated angina: without angina Qualified Code(s): I25.10 - Atherosclerotic heart disease of [place] coronary artery without angina pectoris (7) Diabetes Priority: Secondary Status: Chronic Qualifiers: Diabetes mellitus type: type 2 Diabetes mellitus skilled nursing insulin use: without skilled nursing use Diabetes mellitus complication status: with other specified complication Qualified Code(s): E11.69 - Type 2 diabetes mellitus with other specified complication (8) DVT prophylaxis Priority: Secondary Status: Acute (9) Acute respiratory failure Priority: Secondary Status: Acute Qualifiers: Respiratory failure complication: hypoxia Qualified Code(s): J96.01 - Acute respiratory failure with hypoxia Hospital course: Mr. Natanael is a 67 year old male who transferred from the [place] with increased SOB , fatigue, generalized weakness and black stool. He was found to have a Hgb of 7.0, guiac positive, elevated troponin to 0.7, and elevated BNP at 6157. CXR demonstrated cardiomegaly with pulmonary edema consistent with CHF. He was given IV lasix in the ED which improved his symptoms. He was admitted to the hospital from 04/12/18-04/17/18 for upper GI bleed and CHF exacerbation. He was treated with fluid restriction to 1.5L and lasix 40mg IV BID, and diuresed well. He was not able to decrease from lasix 40mg BID and was discharged on that dose. It will need to be decreased at outpatient follow up. He was transfused 1 unit PRBC on admission with increase to hgb 7.4. GI evaluated him with an EGD which revealed non-bleeding gastric ulcers. He was started on carafate TID and omeprazole 40mg daily. His hgb was monitored and did not improve after several days, so he was transfused 2 more units PRBCs on 04/14. His hgb improved and has stabilized at 8.7. He was evaluated by Cardiology for elevated troponin and found to not be a candidate for LHC due to anemia and GI bleed. His elevated troponin was thought to be likely secondary to demand ischemia in the setting of acute anemia requiring blood transfusion. He denies CP. He did have a decrease in his LVEF to 50% from 60% on previous. His ASA was restarted prior to discharge. He was discharge to [place] inpatient rehab unit in stable condition. Discharge discussed with: patient - Time Spent with Patient Total time spent providing and/or coordinating discharge services: - Discharge Medications Home Medications: Cyclobenzaprine HCl 5 mg PO TID PRN 09/15/17 [History] Magnesium Oxide [Magnesium] 400 mg PO BID 09/15/17 [History] Multivit-Min/FA/Lycopen/Lutein [A Thru Z Select Multivit Tab] 1 tab PO DAILY 07/24 [History] Omeprazole [PriLOSEC] 40 mg PO DAILY 09/15/17 [History] amLODIPine [Norvasc] 5 mg PO DAILY 09/15/17 [History] hydrOXYzine pamoate [HydrOXYzine Pamoate] 25 mg PO BID PRN 09/15/17 [History] Aspirin Enteric Coated [Aspirin EC] 81 mg PO DAILY tablet. 09/18/17 [Rx] Metoprolol [Lopressor] 25 mg PO BID #60 tablet 09/18/17 [Rx] Carboxymethyl/Glycerin/Poly80 [Refresh Optive Advanced Drops] 1 drop OP TID 03/24 [History] Docusate [Colace] 100 mg PO DAILY 04/11/18 [History] Atorvastatin [Lipitor] 40 mg PO HS tablet 04/17/18 [Rx] Furosemide [Lasix] 40 mg PO BIDDIURETIC tab 04/17/18 [Rx] Nicotine Patch [Nicoderm] 21 mg TD DAILY patch.td24 04/17/18 [Rx] Sucralfate [Carafate] 1 gm PO 0730,1630 tablet 04/17/18 [Rx] Allergies/Adverse Reactions: 3 Allergy/AdvReac Type Severity Reaction Status Date / Time No Known Allergies Allergy Verified 04/11/18 19:57 Date of admission: 04/11/18 22:56 [facility] care physician: [facility] Consults: 04/11/18 23:02 Consult to Cardiology [CONS] Routine Comment: Consulting Provider: [facility] [place] Reason for Consult: Elevated troponin, CHF Call Completed: No Consult to Gastroenterology [CONS] Routine Consulting Provider: [facility] [place] Reason for Consult: GI bleed? Call Completed: No 04/13/18 11:43 Consult to Occupational Therapy [CONS] Routine Comment: Evaluate, develop and implement POC Reason for Consult: discharge planning Does patient have active BEDREST order?: Yes Is patient medically & hemodynamically stable?: Yes Patient assessed for mobility or mobilized this visit?: Yes Consult to Physical Therapy [CONS] Routine Comment: Evaluate, develop and implement POC Reason for Consult: discharge planning Does patient have active BEDREST order?: No Is patient medically & hemodynamically stable?: Yes Discharging clinician: Namrata Archuleta Anticipated date of discharge: 04/17/18 - Constitutional Vitals: Temp Pulse Resp BP Pulse Ox 98.2 F 69 20 113/65 94 04/17/18 07:29 04/17/18 08:46 04/17/18 07:29 04/17/18 07:29 04/17/18 07:29 General appearance: Present: disheveled, A&O X 3, no acute distress, answers questions appropriately - Head Head exam: Present: atraumatic, normocephalic - Eye Eye exam: Present: PERRL, conjuntiva pink, sclera anicteric Pupils: Present: PERRL - Neck Neck exam general surgery: Present: supple, trachea midline. Absent: lymphadenopathy - Respiratory Respiratory exam: Present: CTAB. Absent: accessory muscle use, rales, rhonchi, wheezes - Cardiovascular Cardiovascular exam: Present: RRR, +S1, +S2, systolic murmur - GI/Abdominal GI/Abdominal exam: Present: normal bowel sounds, soft, no peritoneal signs. Absent: distended, tenderness - Extremities Exam Extremities exam: Present: normal capillary refill, pedal edema (1+ on the right , trace on the left ), radial pulses palpable and symmetrical. Absent: calf tenderness, tenderness - Neurological Exam Neurological exam: Present: oriented X3, no focal deficits. Absent: facial droop, speech deficit - Psychiatric Psychiatric exam: Present: normal affect, normal mood - Skin Skin exam: Present: dry, intact - Patient Status Disposition: Transfer [facility] Condition: Fair Functional capacity at discharge: uses cane/walker Overall status at discharge: patient is progressing back to baseline - Discharge Instructions Instructions: Heart Failure (DC), Anemia (GEN) Follow Up With: [facility] [Primary Care Provider[facility] - (PATIENT IS GOING TO THE [place] NO PCP APPONTMENT NEEDED) Pete Duran MD [Partnered Physician] - (SENT WEB REQUEST ON 04-17-18 @ [id number]) Additional Instructions: Will need strict 1.5 Liter per day fluid restriction. Please check/monitor HGB. Request sent for a GI follow up appointment- Please have patient follow up with GI. [place] for rehab. - Diet and Activity Activity: as per physical therapy, increase activity as tolerated Diet: diabetic diet - VTE Documentation of Mechanical Device: Intermittent pneumatic compression device <Latonia Jacobo - Last Filed: 04/17/18 19:09> Date of Encounter: 04/17/18 - Discharge Diagnosis (1) Elevated troponin Status: Acute (2) COPD (chronic obstructive pulmonary disease) Status: Chronic Qualifiers: COPD type: COPD with acute exacerbation Qualified Code(s): J44.1 - Chronic obstructive pulmonary disease with (acute) exacerbation (3) Coronary artery disease Status: Chronic Qualifiers: Coronary Disease-Associated Artery/Lesion type: [place] artery [place] vs. transplanted heart: [place] heart Associated angina: without angina Qualified Code(s): I25.10 - Atherosclerotic heart disease of [place] coronary artery without angina pectoris (4) Diabetes Status: Chronic Qualifiers: Diabetes mellitus type: type 2 Diabetes mellitus skilled nursing insulin use: without skilled nursing use Diabetes mellitus complication status: with other specified complication Qualified Code(s): E11.69 - Type 2 diabetes mellitus with other specified complication (5) GI bleed Status: Resolved (6) Anemia Status: Acute Qualifiers: Anemia type: unspecified type Qualified Code(s): D64.9 - Anemia, unspecified (7) CHF exacerbation Status: Acute Qualifiers: Heart failure type: diastolic Qualified Code(s): I50.33 - Acute on chronic diastolic (congestive) heart failure (8) DVT prophylaxis Status: Acute (9) Acute respiratory failure Status: Acute Qualifiers: Respiratory failure complication: hypoxia Qualified Code(s): J96.01 - Acute respiratory failure with hypoxia Hospital course: Mr. Santoyo is a 67 year old male - Time Spent with Patient Total time spent providing and/or coordinating discharge services: Date of admission: 04/11/18 22:56 Primary care physician: PCP [place] Consults: 04/11/18 23:02 Consult to Cardiology [CONS] Routine Comment: Consulting Provider: [facility] [place] Reason for Consult: Elevated troponin, CHF Call Completed: No Consult to Gastroenterology [CONS] Routine Consulting Provider: [facility] [place] Reason for Consult: GI bleed? Call Completed: No 04/13/18 11:43 Consult to Occupational Therapy [CONS] Routine Comment: Evaluate, develop and implement POC Reason for Consult: discharge planning Does patient have active BEDREST order?: Yes Is patient medically & hemodynamically stable?: Yes Patient assessed for mobility or mobilized this visit?: Yes Consult to Physical Therapy [CONS] Routine Comment: Evaluate, develop and implement POC Reason for Consult: discharge planning Does patient have active BEDREST order?: No Is patient medically & hemodynamically stable?: Yes - Constitutional Vitals: Temp Pulse Resp BP Pulse Ox 98.2 F 69 16 113/65 94 04/17/18 07:29 04/17/18 08:46 04/17/18 11:15 04/17/18 07:29 04/17/18 11:15 - Attending Attestation I examined this patient and my medical decision-making was reviewed with the Resident Physician. I agree with the documented findings, disposition and treatment plan as described except to the extent set forth below.
--- NOTE | 2018-04-17 10:43 | Physician Discharge Referral ---
ExtendedCare Referral Info Institutional Level of Care: Skilled - Diagnosis (1) GI bleed Priority: Primary Status: Resolved (2) Acute respiratory failure Priority: Secondary Status: Acute (3) CHF exacerbation Priority: Secondary Status: Acute (4) Anemia Priority: Secondary Status: Acute (5) Elevated troponin Priority: Secondary Status: Acute (6) COPD (chronic obstructive pulmonary disease) Priority: Secondary Status: Chronic (7) Coronary artery disease Priority: Secondary Status: Chronic (8) Diabetes Priority: Secondary Status: Chronic (9) DVT prophylaxis Priority: Secondary Status: Acute - Transfer Medications Home Medications: Cyclobenzaprine HCl 5 mg PO TID PRN 09/15/17 [History] Magnesium Oxide [Magnesium] 400 mg PO BID 09/15/17 [History] Multivit-Min/FA/Lycopen/Lutein [A Thru Z Select Multivit Tab] 1 tab PO DAILY 07/24 [History] Omeprazole [PriLOSEC] 40 mg PO DAILY 09/15/17 [History] amLODIPine [Norvasc] 5 mg PO DAILY 09/15/17 [History] hydrOXYzine pamoate [HydrOXYzine Pamoate] 25 mg PO BID PRN 09/15/17 [History] Aspirin Enteric Coated [Aspirin EC] 81 mg PO DAILY tablet. 09/18/17 [Rx] Metoprolol [Lopressor] 25 mg PO BID #60 tablet 09/18/17 [Rx] Carboxymethyl/Glycerin/Poly80 [Refresh Optive Advanced Drops] 1 drop OP TID 03/24 [History] Docusate [Colace] 100 mg PO DAILY 04/11/18 [History] Atorvastatin [Lipitor] 40 mg PO HS tablet 04/17/18 [Rx] Furosemide [Lasix] 40 mg PO BIDDIURETIC tab 04/17/18 [Rx] Nicotine Patch [Nicoderm] 21 mg TD DAILY patch.td24 04/17/18 [Rx] Sucralfate [Carafate] 1 gm PO 0730,1630 tablet 04/17/18 [Rx] Allergies/Adverse Reactions: 3 Allergy/AdvReac Type Severity Reaction Status Date / Time No Known Allergies Allergy Verified 04/11/18 19:57 - Respiratory Orders Smoking Cessation: Smoking cessation has been advised. For more information, call the [employer] Tobacco Quit Line at 5-941-UFOW-NOW. - Lab Orders Lab Orders: CBC, Other (include drug levels w/frequency) (BMP) - Ancillary Orders May use pressure relief devices daily prn, May go on SARA w/family/respon democrat w /meds at nurse discretion PRN - Advance Directives Code Status: Full Code - Mobility Orders Other (as per PT) - Diet Orders No Added Salt (J CARLOS), Cardiac CERTIFICATION: I certify that the transfer of the above named patient to an Extended Care Facility is necessary for the continuing treatment of the diagnosis listed. The above information is true and accurate reflection of patient's current condition. Confidential - Redisclosure prohibited without a patient's written consent.
== END 2018-04-17 12:14 | DRG 377 ==
LOC: EMEROO 17:51 → 2NNU 17:51
PROVIDERS: ADMIT Internal Medicine; ATTEND Internal Medicine
PROC: ENDOEBX (2018-04-12 15:50)

== ENCOUNTER 2018-11-25 05:16 | Inpatient (IN) ==
[2018-11-25] MEDS ORDERED: *HR* Heparin 5,000 UNIT/ML VIAL IVP PRN ×2 (07:52)
--- NOTE | 2018-11-25 07:54 | Pulmonology History & Physical ---
<Davis Menon W - Last Filed: 11/25/18 12:36> Date of Encounter: 11/25/18 History of Present Illness HPI: Mr. Santoyo is a 68 year old male Medications and Allergies Magnesium Oxide [Magnesium] 400 mg PO BID 09/15/17 [History] amLODIPine [Norvasc] 5 mg PO DAILY 09/15/17 [History] Aspirin Enteric Coated [Aspirin EC] 81 mg PO DAILY tablet. 09/18/17 [Rx] Metoprolol [Lopressor] 25 mg PO BID #60 tablet 09/18/17 [Rx] Albuterol Neb [Proventil Neb] 2.5 mg IH Q6H PRN 11/25/18 [History] Albuterol Sulfate [Albuterol Inhaler] 2 puff IH Q4HR PRN 11/25/18 [History] Furosemide [Lasix] 40 mg PO BID 11/25/18 [History] Omeprazole [PriLOSEC] 20 mg PO DAILY 11/25/18 [History] Potassium Chloride [Klor-Con 10] 20 meq PO DAILY 11/25/18 [History] Sucralfate [Carafate] 1 gm PO TID 11/25/18 [History] Tiotropium [place] [Spiriva Respimat] 2 puff IH DAILY 11/25/18 [History] Allergy/AdvReac Type Severity Reaction Status Date / Time No Known Allergies Allergy Verified 11/25/18 13:21 All Systems: The remainder of the systems were reviewed and are negative Physical Examination Vital Signs: Vital Signs, Last 4 Hours Temp Pulse Resp BP Pulse Ox 11/25/18 12:00 112 11 106/55 95 11/25/18 11:24 98.7 F 11/25/18 11:03 101 11/25/18 10:56 104 22 88/64 95 11/25/18 10:00 106 23 98/59 95 11/25/18 09:00 99 23 76/54 95 Results - Laboratory Findings CBC and BMP: 11/25/18 07:52 PT/INR, D-dimer PT 27.3 Seconds (9.4-12.1) H 11/25/18 08:40 Abnormal lab findings: Abnormal lab results WBC 19.9 K/mcL (4.3-11.1) H 11/25/18 07:52 RBC 3.50 M/mcL (4.19-5.50) L 11/25/18 07:52 Hgb 8.4 g/dL (12.9-16.9) L 11/25/18 07:52 Hct 27.9 % (37.5-50.1) L 11/25/18 07:52 MCV 79.7 fL (83.0-100.0) L 11/25/18 07:52 MCH 24.0 pg (28.0-33.3) L 11/25/18 07:52 MCHC 30.1 g/dL (31.6-35.5) L 11/25/18 07:52 RDW 17.0 % (11.5-14.5) H 11/25/18 07:52 PT 27.3 Seconds (9.4-12.1) H 11/25/18 08:40 Heparin Anti-Xa, Unfract 0.15 IU/mL (0.30-0.70) L 11/25/18 08:40 POC Glucose 111 mg/dL (70-99) H 11/25/18 07:36 Lactic Acid 3.5 mmol/L (0.5-2.2) H 11/25/18 09:22 B-Natriuretic Peptide 2813 pg/mL (Less than 100) H 11/25/18 09:22 - Attending Attestation I examined this patient and my medical decision-making was reviewed with the Resident Physician. I agree with the documented findings, disposition and treatment plan as described except to the extent set forth below. We independently had [id number] contact with the patient I spent 35min of Critical Care time with this patient. It involved decision making of high complexity to assess, manipulate, and support vital organ system failure and/or to prevent further life threatening deterioration of the patient's condition. The time involved in the performance of separately reportable procedures was not counted toward critical care time. Patient seen and examined at bedside Labs, radiology, chart personally reviewed. Management was reviewed during multidisciplinary critical care rounds. 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 fib with RVR appreciate cardiology evaluation continue heparin infusion and aspirin possible heart catheterization if needed pending stat echocardiogram. Patient also has lactic acidosis which I think is mediated in part by infection complicated by underlying cardiac status. We have avoided aggressive volume resuscitation because of unknown heart function and clear evidence of hydrostatic edema on imaging and on labs(elevated BNP). He received 500 mL of fluid at the outside facility and will give another 250-500 mL of albumin here as blood pressure has been generally stable but he had a few episodes of hypotension. This may be related to A. fib and he may need to be loaded with amiodarone but will discuss with cardiology. Continue to trend lactate which encouragingly is trending down GI: History of GI hemorrhage in the past but no evidence of gastrointestinal bleeding at this time continue to monitor H&H Nutrition: Nothing by mouth for now Renal: UOP Monitored, Cont to Trend sCr and monitor Electrolytes. ID: Severe sepsis on broad-spectrum antibiotics we suspect pneumonia as the source we will de-escalate based upon clinical response and cultures Heme/Onc: He is on heparin infusion high risk for GI bleeding as he has had this in the past Endo: Glucose Monitored Integ/MSK: Skin Care per routine ICU Nursing Protocol to prevent ulcers. Lines: All lines examined without evidence of infection : Dispo: Remain in ICU for critical illness CODE: Full <Shay Laurent - Last Filed: 11/25/18 18:24> Date of Encounter: 11/25/18 Time of Encounter: 11:30 Assessment and Plan (1) Sepsis Current visit: Yes Status: Acute - patient came to the [facility] from [place] with WBC: 26.5, lacttate :11.7, tachycardia. CXR showed bilateral lung infiltrates, lft lung basea and prbable pleural effusion. - patient currently on Vanc/Zosyn, receved Vac/Zosyn and Levaquin at the [facility] yesterday. - Currently he's on 3L satting at 98% with no increasing need for more oxygen, HR: 104, afebrile, lacate trending down to 3.5 . - Patient received 500mL fluids at the [facility], but holding off on the aggressive fluid resuscitation owing to his elevated BNP and due to decreased LVEF on his most recent Echo Qualifiers: Qualified Code(s): A41.9 - Sepsis, unspecified organism (2) Elevated troponin Current visit: No Status: Acute Likely demand ischemia/NSTEMI/ anemia with a drop in hemoglobin dropped from 9.5 to 8.4 . Patient presented from the [facility] with troponins of 12.3, repeat troponins was 11.7, CK 250. EKG at the [facility] showed atrial fibrillation with left ventricular hypertrophy. No evidence of any ST-T changes, no WPW, HOCM, Brugada, heart strain/block. Repeat EKG here in the ICU showed ST depression in the lateral leads aVL, V5 and V6, along with afib and minim [place] critiera for LVH. Patient continues to be in heparin drip . The re was a concern for GI bleed when he was here in April when his hemoglobin dropped to 7.4. However at this point since patient is not actively bleeding has no evidence of hematemesis, melena or hematochezia it will be reasonable to keep him on heparin drip and if needed we can stop it. No indications for nitroglycerin at the moment because patient is not actively having any chest pain. No indication of beta maggy at this moment because patient's blood pressure is 110 systolic. Plan is to trend her cardiac enzymes. Cardiology is on board (3) Pneumonia Current visit: No Status: Acute Patient presented to the ED in [facility] with concerns for pneumonia. He was given vancomycin and Zosyn and Levaquin at [place], and sent to [facility] ICU for further management. Initial workup here showed that patient chest x-ray was positive for bilateral lung infiltrates with some volume loss, left lung base and probable small pleural effusion. -Physical examination patient had bilateral expiratory wheezing but no egophony. Patient is afebrile, endorsing no productive sputum that has increased in frequency of cough. -Patient currently getting methylprednisone 60 every 8 hours. Also on DuoNeb's scheduled. We will continue to give antibiotics vancomycin for his pneumonia. -Respiratory infection panel, Legionella, strep pneumo antigen tests are pending. - repeat lactate q4h Qualifiers: Pneumonia type: due to unspecified organism Laterality: unspecified latera lity Lung location: unspecified part of lung Qualified Code(s): J18.9 - Pneumonia, unspecified organism (4) Anemia Current visit: Yes Status: Acute Patient's hemoglobin at [facility] this morning was 9.5. Repeat hemoglobin the ICU shows his movements 8.4. Patient's Hb was 7.4 in April 2018 when there was some concern for active GI bleed however his EGD was normal for any of source of bleeding. On physical exam patient has no evidence of hematemesis, melena or hematochezia. We will trend his H&H every 6 hours and if the patient's hemoglobin is less than 7 then he gets transfused. Qualifiers: Anemia type: unspecified type Qualified Code(s): D64.9 - Anemia, unspecified (5) CHF exacerbation Current visit: No Status: Acute - likely due to pneumonia . could also due to ischemic cardiomyopathy in light on elevated troponins. Last echocardiogram on showed 50% with diastolic dysfunction, moderate aortic regurg, moderate mitral annular calcification, moderate mitral stenosis, mild mitral regurgitation, mild pulmonary hyperten crow. The proBNP at [facility] ws 60,900. BNP in the ICU was 2813. - on physical exam patient does not have S3, no JVDs no edema in the extremities. Repeat Echo pending. -We will hold off Lasix in context of the soft blood pressure. Qualifiers: Heart failure type: unspecified Qualified Code(s): I50.9 - Heart failure, unspecified History of Present Illness HPI: Mr. Santoyo is a 68 year old male past medical history of coronary artery disease, COPD, diabetes, anemia, CHF exacerbation, elevated troponins who was a transferred from the [facility] ER because of concerns for difficulty breathing. Initial workup in the ED showed that patient's troponin was elevated to 12.2, lactic acid of 11.7. White blood count 26.5, Hb 8.4 ( baseline 8.4 - 10.0) with neutrophils of 93. Patient's INR was 1.87. Since her creatinine was 1.40, LFTs were elevated at aALT 314 and AST of 496, CK was 251 Patient's a proBNP was 60,900. Patient was negative for flu. Chest CT was negative for any evidence of pulmonary embolism. There were basilar opacities with concerns for pneumonia and patient was given Zosyn and vancomycin and Levaquin at the [place] . He also went into A. fib RVR and was put on heparin drip because of his elevtaed troponins with cocnerns for demand ischemia /NTEMI and was sent to [facility] for further management. Patient's EKG in the [facility] showed a HR: 128, QTc: 461, with atrial fibrillation ([id number] along with abnormal R-wave progression. Patient also had LVH (aVL > 10m, with s in V1+ R in V5 > 35mm). While in the ICU, initial workup that patient was meeting 3/4 SIRS criteira with Pulse :106, RR: 23, WBC: 19.9. Patient has an elevated INR of 2.4 (he 's on a heparin drip) . His BNP is 2813, lactic acid of 3.5 (was 12.[address] [facility]) . Patient's chest x-ray was showed bilateral lung infiltrates with some volume loss and probable small pleural effusion and findings reflective of congestive heart failure. Stat echo has been ordered. Echo from 04/12/18 showed evidence of flow diastolic dysfunction with LVEF of 50%, there was evidence of mild aortic stenosis, moderate aortic regurgitation, moderate mitral stenosis, mild mitral regurg and mild pulmonary hypertension. Past Med Surg Social Fam HX - Past Medical History Medical history: COPD, coronary artery disease, diabetes, GERD, hyperlipidemia, hypertension, myocardial infarction Psychiatric history: depression, schizophrenia - Past Surgical History Surgical History: coronary bypass (CABG) Additional surgical history: carotidendarterectomy - Social History Smoking Status: Current every day smoker Smokeless Tobacco Status: No Alcohol use: none Drug use: none All Systems: The remainder of the systems were reviewed and are negative Physical Examination Vital Signs: Gen.: Vitals noted. No acute distress. Alert, awake and oriented * [address], and time, well developed, well-nourished resting comfortably in bed. HEENT: oropharynx clear, Normocephalic, atraumatic, MMM Neck: supple, no JVD, no lymphadenopathy, no carotid bruit. Cardiac: in Afib, no murmur, +S1/S2, No BLE edema, PMI non-displaced Pulmonary: CTA bilaterally, no wheezes, rales or rhonchi, equal chest expansion, unlabored breathing Abdomen: soft, nontender, BS noted, no guarding, mildly distended. No organomegaly, no pulsatile masses, Skin: warm and dry, no visible lesions. Feels warm, clammy, no rashes, no lesions, no erythema MSK: ROM not assessed. no joint swelling noted, gait not assessed while in bed. Non tender calf or clubbing, no cyanosis/clubbing/ or edema Neuro: A&O, moves all extremities, no focal deficits, sensation intact Psych: Appropriate mood and behavior, normal speech. Results - Laboratory Findings CBC and BMP: 11/25/18 12:45 11/25/18 15:30 Abnormal lab findings: Abnormal lab results POC Glucose 111 mg/dL (70-99) H 11/25/18 07:36
[2018-11-25] MEDS: Heparin 25,000 UNIT/500 ML D5W 25,000 UNIT/500 ML BAG IVC SCH (08:39)
[2018-11-25] MEDS ORDERED: *HR* Metoprolol 5 MG/5 ML VIAL IVP ONE (08:44)
[2018-11-25 09:10] LABS: Heparin anti-factor XA UFH 0.15 IU/mL (0.30-0.70)
[2018-11-25 09:11] LABS: INR 2.4; Prothrombin Time 27.3 Seconds (9.4-12.1)
[2018-11-25 09:33] LABS: Hematocrit 27.9 % (37.5-50.1); Hemoglobin 8.4 g/dL (12.9-16.9); Mean Corpuscular HGB Conc 30.1 g/dL (31.6-35.5); Mean Corpuscular Volume 79.7 fL (83.0-100.0); Mean Platelet Volume 9.6 fL (9.4-12.4); Platelet Count 232 K/mcL (140-400)
[2018-11-25] MEDS: methylPREDNISolone 125 MG/2 ML VIAL IVP SCH ×3 (09:37→20:33)
[2018-11-25] MEDS: Ipratropium/Albuterol Neb 3 ML IH SCH ×5 (10:13→23:43)
--- NOTE | 2018-11-25 10:15 | Cardiology Consult Note ---
Date of Encounter: 11/25/18 Time of Encounter: 10:13 Assessment and Plan (1) Elevated troponin Current Visit: No Status: Acute Likely demand ischemia as troponins are adynamic with a CK of 250 only at outside hospital. Recommend repeating cardiac enzymes serially here at [facility]. Patient started on heparin IV however cautioned for history of recent GI bleed. Ischemic workup would be recommended prior to discharge if patient is a candidate and able to tolerate long-term dual antiplatelet therapy [history of GI bleed recently] echocardiogram to evaluate for new regional wall motion abnormalities (2) GI bleed Current Visit: Yes Status: Resolved Recent GI bleed with hemoglobin reaching 7.0 currently at 8.0 possible culprit for demand ischemia. GI workup recommended also for consideration of ischemic workup if patient is a candidate for long-term dual antiplatelet therapy. Qualifiers: GI bleed type/associated pathology: unspecified gastrointestinal hemorrhage type Qualified Code(s): K92.2 - Gastrointestinal hemorrhage, unspecified (3) Anemia Current Visit: Yes Status: Acute Hemoglobin 8.0 possible culprit for high-output heart failure Qualifiers: Anemia type: unspecified type Qualified Code(s): D64.9 - Anemia, unspecified (4) CHF exacerbation Current Visit: No Status: Acute Possible ischemic cardiomyopathy versus high output heart failure from anemia versus heart failure with preserved ejection fraction due to LVH on echocardiogram and EKG. Repeat echocardiogram pending. Patient also has mitral stenosis and aortic stenosis mentioned on earlier echocardiograms. Gentle diuresis in case patient does have mitral stenosis and aortic stenosis Qualifiers: Heart failure type: unspecified Qualified Code(s): I50.9 - Heart failure, unspecified Discussion w patient/family: The assessment and plan as outlined above was discussed with the patient and/or family members who expressed understanding and agreement. All questions were answered. Thank you for involving us in the care of your patient. Please call with any questions. History of Present Illness Consult date: 11/25/18 Consult reason: Elevated troponins Chief complaint: none History of present illness: Mr. Santoyo is a 68 year old male with history of CABG in 2014, hypertension, hyperlipidemia, diabetes, GI bleed recently in the last year presents with bilateral pneumonia elevated white blood count a troponin of 10. Patient has known mild aortic stenosis mild LV systolic dysfunction mitral stenosis on echo earlier in 2018. EKG shows lateral changes which were similar to his prior presentation with LVH. No workup was performed on his previous admission due to GI bleed and severe anemia with a hemoglobin of 7.0. Patient is asymptomatic denies any chest pain, shortness of breath, orthopnea, PND, presyncope or syncope. Patient was transferred from outside facility noted to have a troponin of 12 with a repeat at 10. He also noted to have mild shock liver and a CK of 250. Current hemoglobin is 8.0 on arrival to [facility] with troponins currently pending here at [facility]. Patient likely would benefit from an ischemic workup however with his bilateral infiltrates, elevated white blood count, significant anemia in the setting of a recent GI bleed and blood per rectum and LHC his high risk. Unsure if the patient had a GI workup after his previous admission with a GI bleed. High output heart failure also may be considered along with demand ischemia. His troponins despite being high at an outside facility are adynamic along with a CK of 250 is not significant. A repeat echo will be obtained to evaluate for regional wall motion abnormalities which were not present on his most recent echocardiogram however he had mild LV systolic dysfunction. There is also mild aortic stenosis and mitral stenosis therefore excessive diuresis is not recommended to enable forward flow If patient. If patient is a candidate for dual antiplatelet therapy long-term an ischemic workup is recommended prior to discharge once pneumonia has resolved and respiratory status improved. Consider consultation GI for workup Past Med Surg Social Fam HX - Past Medical History Medical history: COPD, coronary artery disease, diabetes, GERD, hyperlipidemia, hypertension, myocardial infarction Psychiatric history: depression, schizophrenia - Past Surgical History Surgical History: coronary bypass (CABG) Additional surgical history: carotidendarterectomy - Social History Smoking Status: Current every day smoker Smokeless Tobacco Status: No Alcohol use: none Drug use: none Medications and Allergies Cyclobenzaprine HCl 5 mg PO TID PRN 09/15/17 [History] Magnesium Oxide [Magnesium] 400 mg PO BID 09/15/17 [History] Multivit-Min/FA/Lycopen/Lutein [A Thru Z Select Multivit Tab] 1 tab PO DAILY 09/15/17 [History] Omeprazole [PriLOSEC] 40 mg PO DAILY 09/15/17 [History] amLODIPine [Norvasc] 5 mg PO DAILY 09/15/17 [History] hydrOXYzine pamoate [HydrOXYzine Pamoate] 25 mg PO BID PRN 09/15/17 [History] Aspirin Enteric Coated [Aspirin EC] 81 mg PO DAILY tablet. 09/18/17 [Rx] Metoprolol [Lopressor] 25 mg PO BID #60 tablet 09/18/17 [Rx] Carboxymethyl/Glycerin/Poly80 [Refresh Optive Advanced Drops] 1 drop OP TID 04/11/18 [History] Docusate [Colace] 100 mg PO DAILY 04/11/18 [History] Atorvastatin [Lipitor] 40 mg PO HS tablet 04/17/18 [Rx] Furosemide [Lasix] 40 mg PO BIDDIURETIC tab 04/17/18 [Rx] Nicotine Patch [Nicoderm] 21 mg TD DAILY patch.td24 04/17/18 [Rx] Sucralfate [Carafate] 1 gm PO 0730,1630 tablet 04/17/18 [Rx] Allergy/AdvReac Type Severity Reaction Status Date / Time No Known Allergies Allergy Verified 04/11/18 19:57 All Systems Review: The remainder of the systems were reviewed and are negative Physical Examination Vital Signs, Last 4 Hours Temp Pulse Resp BP Pulse Ox 11/25/18 10:00 106 23 98/59 95 11/25/18 09:00 99 23 76/54 95 11/25/18 08:00 98 23 79/54 95 11/25/18 07:55 98.6 F 11/25/18 07:30 98.6 F 101 22 130/75 93 General: Conversant, No Apparent Distress HEENT: Atraumatic, Normocephaly, Mucus Membranes Moist Neck: No JVD, Normal carotid pulses Cardiac: Reg Rate and Rhythm, Normal S1 and S2, No Murmur Lungs: Normal Breath Sounds, No Wheeze, Rales, Rhonchi Neuro: Alert and responsive, No focal deficits noted Abdomen: Soft, Non-Tender Skin: No rashes noted on visualized skin Musculoskeletal: No Chest Wall Tenderness Extremities: No Clubbing, No Cyanosis, No Edema, Normal Pulses Results 11/25/18 07:52 Lab Results 11/25/18 11/25/18 07:52 08:40 WBC 19.9 H Hgb 8.4 L Hct 27.9 L Plt Count 232 INR 2.4 Consult Discharge Plan - Plan [facility]errals: [facility] [Primary Care Provider[facility] -
[2018-11-25] MEDS ORDERED: Perflutren Lipid Microsphere 1.3 ML in 0.9 % Sodium Chloride 8.7 ML IVP ONE (11:42)
[2018-11-25 12:44] LABS: Hemoglobin 8.7 g/dL (12.9-16.9)
[2018-11-25] MEDS: Piperacillin/Tazobactam 3.375 GM in 0.9 % Sodium Chloride Mini Bag 100 ML IVPB SCH (15:44)
[2018-11-25 18:24] LABS: Hematocrit 29.6 % (37.5-50.1); Hemoglobin 8.7 g/dL (12.9-16.9); Mean Corpuscular HGB Conc 29.4 g/dL (31.6-35.5); Mean Corpuscular Hemoglobin 23.5 pg (28.0-33.3); Mean Platelet Volume 10.5 fL (9.4-12.4); Platelet Count 262 K/mcL (140-400); Red Cell Distribution Width 17.1 % (11.5-14.5)
[2018-11-25 18:25] LABS: Anisocytosis 1+ (Not Present); Hypochromasia Present (Not Present); Neutrophils # 17.9 K/mcL (1.6-8.9); Platelet Estimate Normal (Normal)
[2018-11-25 18:26] LABS: BUN/Creatinine Ratio 38 (6-26); Blood Urea Nitrogen 34 mg/dL (8-23); Calcium 8.6 mg/dL (8.6-10.3); Carbon Dioxide 23 mEq/L (23-29); Chloride 95 mEq/L (98-107); Glucose 164 mg/dL (70-105); Osmolality,Calculated 283 (280-300); Potassium 3.5 mEq/L (3.5-5.1); Sodium 131 mEq/L (136-145); eGFR For Non-African Americans > 60 (> 60)
[2018-11-25 21:40] LABS: Basophils % 0.1 %; Hematocrit 28.3 % (37.5-50.1); Hemoglobin 8.4 g/dL (12.9-16.9); Immature Granulocytes % 0.5 % (0-4); Lymphocytes # 0.9 K/mcL (0.6-4.6); Lymphocytes % 5.2 %; Mean Corpuscular HGB Conc 29.7 g/dL (31.6-35.5); Mean Corpuscular Hemoglobin 23.8 pg (28.0-33.3); Mean Corpuscular Volume 80.2 fL (83.0-100.0); Mean Platelet Volume 10.2 fL (9.4-12.4); Monocytes % 3.3 %; Neutrophils # 14.9 K/mcL (1.6-8.9); Nucleated Red Blood Cells 0.2 /100 WBC (0); Platelet Count 245 K/mcL (140-400); Red Blood Count 3.53 M/mcL (4.19-5.50); Red Cell Distribution Width 17.2 % (11.5-14.5); Segmented Neutrophils % 90.9 %
[2018-11-25 21:43] LABS: Monocytes # 0.5 K/mcL (0.0-1.3)
[2018-11-25 22:03] LABS: Albumin 3.1 g/dL (3.5-5.7); Albumin/Globulin Ratio 1.2 (1.1-2.2); Bilirubin,Direct 0.8 mg/dL (0.0-0.2); Bilirubin,Indirect 0.5 mg/dL (0.0-1.2); Bilirubin,Total 1.3 mg/dL (0.3-1.0); Globulin 2.5 g/dL (2.4-3.5); Total Protein 5.6 g/dL (6.4-8.9)
[2018-11-25 22:08] LABS: Troponin I 5.53 ng/mL (< 0.04)
[2018-11-25 22:10] LABS: Anisocytosis 1+ (Not Present); Hypochromasia Present (Not Present); Platelet Estimate Normal (Normal)
[2018-11-25 22:43] LABS: Adenovirus Not Detected (Not Detect); Bordetella Pertussis Not Detected (Not Detect); Chlamydophila pneumoniae Not Detected (Not Detect); Coronavirus 229E Not Detected (Not Detect); Coronavirus HKU1 Not Detected (Not Detect); Coronavirus NL63 Not Detected (Not Detect); Coronavirus OC43 DETECTED (Not Detect); Human Metapneumovirus Not Detected (Not Detect); Human Rhinovirus/Enterovirus Not Detected (Not Detect); Influenza A Subtype 2009 H1 Not Detected (Not Detect); Influenza A Untypeable Not Detected (Not Detect); Influenza B Not Detected (Not Detect); Mycoplasma pneumoniae Not Detected (Not Detect); Parainfluenza Virus 1 Not Detected (Not Detect); Parainfluenza Virus 2 Not Detected (Not Detect); Parainfluenza Virus 3 Not Detected (Not Detect); Parainfluenza Virus 4 Not Detected (Not Detect); Respiratory Syncytial Virus Not Detected (Not Detect)
[2018-11-26] MEDS: Piperacillin/Tazobactam 3.375 GM in 0.9 % Sodium Chloride Mini Bag 100 ML IVPB SCH ×4 (00:11→23:39)
[2018-11-26 04:14] LABS: Basophils % 0.1 %; Hematocrit 27.1 % (37.5-50.1); Hemoglobin 8.1 g/dL (12.9-16.9); Immature Granulocytes % 0.8 % (0-4); Immature Platelets 4.6 % (1.1-6.1); Lymphocytes # 0.9 K/mcL (0.6-4.6); Lymphocytes % 6.3 %; Mean Corpuscular HGB Conc 29.9 g/dL (31.6-35.5); Mean Corpuscular Hemoglobin 23.5 pg (28.0-33.3); Mean Corpuscular Volume 78.6 fL (83.0-100.0); Mean Platelet Volume 10.3 fL (9.4-12.4); Monocytes # 0.6 K/mcL (0.0-1.3); Monocytes % 3.8 %; Neutrophils # 12.9 K/mcL (1.6-8.9); Nucleated Red Blood Cells 0.2 /100 WBC (0); Platelet Count 249 K/mcL (140-400); Red Blood Count 3.45 M/mcL (4.19-5.50)
[2018-11-26] MEDS ORDERED: 0.9 % Sodium Chloride 1,000 ML IVC SCH (04:30)
[2018-11-26 04:38] LABS: BUN/Creatinine Ratio 42 (6-26); Blood Urea Nitrogen 40 mg/dL (8-23); Calcium 8.6 mg/dL (8.6-10.3); Carbon Dioxide 22 mEq/L (23-29); Chloride 95 mEq/L (98-107); Glucose 147 mg/dL (70-105); Osmolality,Calculated 286 (280-300); Potassium 3.5 mEq/L (3.5-5.1); Sodium 132 mEq/L (136-145); eGFR For Non-African Americans > 60 (> 60)
[2018-11-26 04:50] LABS: Troponin I 4.51 ng/mL (< 0.04)
[2018-11-26] MEDS: Ipratropium/Albuterol Neb 3 ML IH SCH ×6 (04:54→23:00)
[2018-11-26 05:11] LABS: Anisocytosis 1+ (Not Present); Hypochromasia Present (Not Present); Ovalocytes 1+ (Not Present); Platelet Estimate Normal (Normal)
--- NOTE | 2018-11-26 08:00 | Pulmonology Progress Note ---
<ValdemarálvaroDavis gomez W - Last Filed: 11/26/18 13:16> Date of Encounter: 11/26/18 Objective PUL Vital signs: Last Vital Signs Temp 97.5 F L 11/26/18 12:30 Pulse 105 11/26/18 12:30 Resp 22 11/26/18 12:30 BP 100/60 11/26/18 12:30 Pulse Ox 95 11/26/18 12:30 Results - Laboratory Findings CBC and BMP: 11/26/18 09:30 11/26/18 03:30 PT/INR, D-dimer PT 27.3 Seconds (9.4-12.1) H 11/25/18 08:40 Abnormal lab findings: Abnormal lab results WBC 14.5 K/mcL (4.3-11.1) H 11/26/18 03:30 RBC 3.45 M/mcL (4.19-5.50) L 11/26/18 03:30 Hgb 8.3 g/dL (12.9-16.9) L 11/26/18 09:30 Hct 28.5 % (37.5-50.1) L 11/26/18 09:30 MCV 78.6 fL (83.0-100.0) L 11/26/18 03:30 MCH 23.5 pg (28.0-33.3) L 11/26/18 03:30 MCHC 29.9 g/dL (31.6-35.5) L 11/26/18 03:30 RDW 17.0 % (11.5-14.5) H 11/26/18 03:30 Band Neutrophils % 30.0 % (0-4) H 11/25/18 15:30 Neutrophils # 12.9 K/mcL (1.6-8.9) H 11/26/18 03:30 Nucleated RBCs/100 WBC 0.2 /100 WBC (0) H 11/26/18 03:30 Hypochromasia Present (Not Present) A 11/26/18 03:30 Anisocytosis 1+ (Not Present) A 11/26/18 03:30 Ovalocytes 1+ (Not Present) A 11/26/18 03:30 PT 27.3 Seconds (9.4-12.1) H 11/25/18 08:40 Sodium 132 mEq/L (136-145) L 11/26/18 03:30 Chloride 95 mEq/L (98-107) L 11/26/18 03:30 Carbon Dioxide 22 mEq/L (23-29) L 11/26/18 03:30 BUN 40 mg/dL (8-23) H 11/26/18 03:30 BUN/Creatinine Ratio 42 (6-26) H 11/26/18 03:30 Glucose 147 mg/dL (70-105) H 11/26/18 03:30 POC Glucose 111 mg/dL (70-99) H 11/25/18 07:36 Lactic Acid 5.5 mmol/L (0.5-2.2) H* 11/26/18 09:25 Total Bilirubin 1.3 mg/dL (0.3-1.0) H 11/25/18 17:23 Direct Bilirubin 0.8 mg/dL (0.0-0.2) H 11/25/18 17:23 AST 238 Units/L (13-39) H 11/25/18 17:23 ALT 313 Units/L (7-52) H 11/25/18 17:23 Troponin I 3.59 ng/mL (< 0.04) H* 11/26/18 09:30 B-Natriuretic Peptide 2813 pg/mL (Less than 100) H 11/25/18 09:22 Serum Total Protein 5.6 g/dL (6.4-8.9) L 11/25/18 17:23 Albumin 3.1 g/dL (3.5-5.7) L 11/25/18 17:23 Coronavirus OC43 (PCR) DETECTED (Not Detect) A 11/25/18 21:30 - Microbiology Findings Microbiology Findings: Microbiology, Last 48 Hours 11/25/18 18:05 Urine Culture - Final Urine,Clean Catch No growth. - Clinical Findings Intake & Output: Intake & Output 11/25/18 11/26/18 11/26/18 23:59 07:59 15:59 Intake Total 840 / 840 340 / 340 300 / 300 Output Total 150 / 150 200 / 200 200 / 200 Balance 690 / 690 140 / 140 100 / 100 Weight 68.2 kg Consult Discharge Plan - Plan [facility]errals: [facility] [Primary Care Provider] - - Attending Attestation I examined this patient and my medical decision-making was reviewed with the Resident Physician. I agree with the documented findings, disposition and treatment plan as described except to the extent set forth below. We independently had [id number] contact with the patient Patient seen and examined at bedside Labs, radiology, chart personally reviewed. Management was reviewed during multidisciplinary critical care rounds. PROGRAM PROPOSALS COORDINATOR: Awake and alert no gross focal neurological deficit Pulm: Acute hypoxic respiratory failure secondary viral pneumonia and COPD exacerbation along with hydrostatic pulmonary edema stable oxygenation on nasal cannula O2 continue treatment of COPD exacerbation Cards: Acute on chronic heart failure with reduced ejection fraction history of coronary artery disease with NSTEMI and A. fib with RVR cardiology managing this. Although lactate is elevated there is no evidence of end organ tissue hypoperfusion at this time we will continue to trend he may benefit from red blood cell transfusion we will also start gentle diuresis as tolerated in addition patient would benefit from walter blocking agent such as beta maggy will discuss with cardiology GI: Liver enzymes are elevated possibly related to acute infectious process and NSTEMI will obtain right upper quadrant ultrasound and start to hepatitis evaluation. I also suspect that these liver enzyme derangements are causing ineffectual clearing of lactate Nutrition: Advance diet as tolerated Renal: UOP Monitored, Cont to Trend sCr and monitor Electrolytes. ID: His been treated for viral pneumonia with suspected bacterial coinfection white count has normalized today. Elevation white count may also be stress response from ACS Heme/Onc: Patient has chronic anemia slightly lower today we will transfuse 1 unit of packed red blood cells to get hemoglobin closer to 9 follow this up with diuresis. Endo: Glucose Monitored Integ/MSK: Skin Care per routine ICU Nursing Protocol to prevent ulcers. Lines: All lines examined without evidence of infection : Dispo: Stable for transfer to [facility] for ongoing care CODE: Full <Laurent,Shay - Last Filed: 11/26/18 13:36> Date of Encounter: 11/26/18 Time of Encounter: 09:00 Assessment and Plan (1) Sepsis Current Visit: Yes Status: Acute 11/26 Patient currently meeting 2/4 SIRs criteria (WBC : 14.5, HR: 104) . Likely due to his pneumonia found on chest x-ray. -Patient is currently on day 2 of Zosyn. We discontinued his vancomycin because of MRSA swab was negative. Respiratory infection panel was positive for coronavirus. Strep pneumo and legionella antigen test were negative. -Plan for him is to continue on Zosyn now, patient's blood culture for mild [facility] were positive for gram-positive cocci . 11/25 - patient came to the [facility] from [place] with WBC: 26.5, lacttate :11.7, tachyc ardia. CXR showed bilateral lung infiltrates, lft lung basea and prbable pleural effusion. - patient currently on Vanc/Zosyn, receved Vac/Zosyn and Levaquin at the [facility] yesterday. - Currently he's on 3L satting at 98% with no increasing need for more oxygen, HR: 104, afebrile, lacate trending down to 3.5 . - Patient received 500mL fluids at the [facility], but holding off on the aggressive fluid resuscitation owing to his elevated BNP and due to decreased LVEF on his most recent Echo Qualifiers: Qualified Code(s): A41.9 - Sepsis, unspecified organism (2) Elevated troponin Current Visit: No Status: Acute 11/26 -Likely due demand ischemia/anemia with a drop in hemoglobin from 9.5-8.1 this morning. Patient came with elevated Scr, LFTs, Troponins in context of hypotension with systolics of 70s -curently 120s. - Patient came to ICU with troponins of 12.2. Currently trending down with the most recent value of 4.5 suggesting that the troponins have been adynamic. Hig hly unlikely it is an ischemic event. No evidence of any ST-T changes,no WPW, HOCM, Brugada, heart strain/block. -Repeat EKG here in the ICU showed ST depression in the lateral leads aVL, V5 and V6, along with afib and minim Voltage criteria for LVH. -On physical exam patient endorses no shortness of breath, chest pain or palpitations. He has been stable on 3 L of oxygen satting at 95% since yesterday. 11/25 Likely demand ischemia/NSTEMI/ anemia with a drop in hemoglobin dropped from 9.5 to 8.4 . Patient presented from the [facility] with troponins of 12.3, repeat troponins was 11.7, CK 250. EKG at the [facility] showed atrial fibrillation with left ventricular hypertrophy. No evidence of any ST-T changes, no WPW, HOCM, Brugada, heart strain/block. Repeat EKG here in the ICU showed ST depression in the lateral leads aVL, V5 and V6, along with afib and minim Voltahe critiera for LVH. Patient continues to be in heparin drip . There was a concern for GI bleed when he was here in April when his hemoglobin dropped to 7.4. However at this point since patient is not actively bleeding has no evidence of hematemesis, melena or hematochezia it will be reasonable to keep him on heparin drip and if needed we can stop it. No indications for nitroglycerin at the moment because patient is not actively having any chest pain. No indication of beta maggy at this moment because patient's blood pressure is 110 systolic. Plan is to trend her cardiac enzymes. Cardiology is on board (3) Pneumonia Current Visit: No Status: Acute -Patient presented to the ED in [facility] with concerns for pneumonia. He was given vancomycin and Zosyn and Levaquin at [place], and sent to [facility] ICU for further management. Initial workup here showed that patient chest x-ray was positive for bilateral lung infiltrates with some volume loss, left lung base and probable small pleural effusion. -Physical examination patient had bilateral expiratory wheezing but no egophony. Patient is afebrile, endorsing no productive sputum that has increased in frequency of cough. WBC trending down from a 26- 14.5. -Patient currently getting methylprednisone 60 every 8 hours. Also on DuoNeb's scheduled. Patient continues to be on day 2 of Zosyn however we have discontinued the vancomycin because MRSA swab was negative. -Respiratory infection panel positive for coronavirus. Continue to monitor Qualifiers: Pneumonia type: due to unspecified organism Laterality: unspecified laterality Lung location: unspecified part of lung Qualified Code(s): J18.9 - Pneumonia, unspecified organism (4) Anemia Current Visit: Yes Status: Acute -Patient's hemoglobin at [facility] this morning was 9.5 currently trending down 8.4 -> 8.1. . Patient's Hb was 7.4 in April 2018 when there was some concern for active GI bleed however his EGD was normal for any of source of bleeding. -On physical exam patient has no evidence of hematemesis, melena or hematochezia. - given 1 unit of packed red blood cells because patient's hemoglobin is 8.1 (given his history of CABG and CHF). Repeat H&H pending. Qualifiers: Anemia type: unspecified type Qualified Code(s): D64.9 - Anemia, un specified (5) CHF exacerbation Current Visit: No Status: Acute 11/26 - Although patient does have a BNP of 2813 and came with pro- BNP of 60,900, clinically he does not appear to be in CHF exacerbation. -On physical exam, extremities are not edematous, no S3 or JVD. We are currently holding his home Lasix because of his hypotension that he came in with. -Repeat echocardiogram showed that patient's LVEF has decreased to 25%. -Given his history of CABG and now recent drop in his EF in the last 6 months from 50-25%, patient has been recommended to follow-up with cardiology as an outpatient. 11/25 could also due to ischemic cardiomyopathy in light on elevated troponins. Last echocardiogram on showed 50% with diastolic dysfunction, moderate aortic regurg, moderate mitral annular calcification, moderate mitral stenosis, mild mitral regurgitation, mild pulmonary hypertension. The proBNP at [facility] ws 60,900. BNP in the ICU was 2813. - on physical exam patient does not have S3, no JVDs no edema in the extr emities. Repeat Echo pending. -We will hold off Lasix in context of the soft blood pressure. Qualifiers: Heart failure type: unspecified Qualified Code(s): I50.9 - Heart failure, unspecified (6) Elevated transaminase level Current Visit: Yes Status: Acute -Patient presented with elevated liver enzymes. Initial hypothesis was that the patient's elevated troponin, serum creatinine and LFTs were secondary to decreased perfusion due to hypotension. However, his trops and SCr has got better but transaminases are > 10 times ULN. Therefore, we cannot rule out the possibility of Hepatitis infection. -On physical exam the belly does not seem to be distended she is not guarding there is no Soliman sign present. Patient does not complain of postprandial discomfort in the right upper quadrant. - Hepatitis panel pending. right upper quadrant US pending as well. Subjective Interval history: Patient examined at the bedside today. He seems to be endorsing no chest pain, palpitation, shortness of breath , satting at 98% on 3 L of oxygen. Patient's blood pressure has been 120 systolics is morning. He continues to be in A. fib RVR with heart rate 100-110. I spoke to cardiology nuse practitioner and she recommended we start her on metoprolol 12.5 mg by mouth twice a day. Patient's white blood count has gone down from a 26-14.5. Repeat troponins are adynamic with values of 3.59 (Of note he came in with troponins of 12.12). Patient's lactic acid has dropped from 11.7 to 5.5 right now. His hemoglobin dropped from 8.4-8.1, with no evidence of melena/hematochezia or hematemesis and was transfused with 1 unit of packed red blood cells (Given his history of CABG and CHF). Objective PUL Vital signs: Last Vital Signs Temp 97.6 F 11/26/18 07:50 Pulse 105 11/26/18 07:00 Resp 18 11/26/18 07:00 BP 98/54 11/26/18 07:00 Pulse Ox 95 11/26/18 07:00 Gen.: Vitals noted. No acute distress. Alert, awake and oriented * [address], [address], and time, well developed, well-nourished resting comfortably in bed. HEENT: oropharynx clear, Normocephalic, atraumatic, MMM Neck: supple, no JVD, no lymphadenopathy, no carotid bruit. Cardiac: in Afib, no murmur, +S1/S2, No BLE edema, PMI non-displaced Pulmonary: b/l wheezes, no rales or rhonchi, equal chest expansion, unlabored breathing Abdomen: soft, nontender, BS noted, no guarding, mildly distended. No organomegaly, no pulsatile masses, Skin: warm and dry, no visible lesions. Feels warm, clammy, no rashes, no lesions, no erythema MSK: ROM not assessed. no joint swelling noted, gait not assessed while in bed. Non tender calf or clubbing, no cyanosis/clubbing/ or edema Neuro: A&O, moves all extremities, no focal deficits, sensation intact Psych: Appropriate mood and behavior, normal speech. Results - Laboratory Findings CBC and BMP: 11/26/18 09:30 11/26/18 03:30 PT/INR, D-dimer PT 27.3 Seconds (9.4-12.1) H 11/25/18 08:40 Abnormal lab findings: Abnormal lab results WBC 14.5 K/mcL (4.3-11.1) H 11/26/18 03:30 RBC 3.45 M/mcL (4.19-5.50) L 11/26/18 03:30 Hgb 8.1 g/dL (12.9-16.9) L 11/26/18 03:30 Hct 27.1 % (37.5-50.1) L 11/26/18 03:30 MCV 78.6 fL (83.0-100.0) L 11/26/18 03:30 MCH 23.5 pg (28.0-33.3) L 11/26/18 03:30 MCHC 29.9 g/dL (31.6-35.5) L 11/26/18 03:30 RDW 17.0 % (11.5-14.5) H 11/26/18 03:30 Band Neutrophils % 30.0 % (0-4) H 11/25/18 15:30 Neutrophils # 12.9 K/mcL (1.6-8.9) H 11/26/18 03:30 Nucleated RBCs/100 WBC 0.2 /100 WBC (0) H 11/26/18 03:30 Hypochromasia Present (Not Present) A 11/26/18 03:30 Anisocytosis 1+ (Not Present) A 11/26/18 03:30 Ovalocytes 1+ (Not Present) A 11/26/18 03:30 PT 27.3 Seconds (9.4-12.1) H 11/25/18 08:40 Sodium 132 mEq/L (136-145) L 11/26/18 03:30 Chloride 95 mEq/L (98-107) L 11/26/18 03:30 Carbon Dioxide 22 mEq/L (23-29) L 11/26/18 03:30 BUN 40 mg/dL (8-23) H 11/26/18 03:30 BUN/Creatinine Ratio 42 (6-26) H 11/26/18 03:30 Glucose 147 mg/dL (70-105) H 11/26/18 03:30 POC Glucose 111 mg/dL (70-99) H 11/25/18 07:36 Lactic Acid 5.2 mmol/L (0.5-2.2) H* 11/26/18 03:30 Total Bilirubin 1.3 mg/dL (0.3-1.0) H 11/25/18 17:23 Direct Bilirubin 0.8 mg/dL (0.0-0.2) H 11/25/18 17:23 AST 238 Units/L (13-39) H 11/25/18 17:23 ALT 313 Units/L (7-52) H 11/25/18 17:23 Troponin I 4.51 ng/mL (< 0.04) H* 11/26/18 03:30 B-Natriuretic Peptide 2813 pg/mL (Less than 100) H 11/25/18 09:22 Serum Total Protein 5.6 g/dL (6.4-8.9) L 11/25/18 17:23 Albumin 3.1 g/dL (3.5-5.7) L 11/25/18 17:23 Coronavirus OC43 (PCR) DETECTED (Not Detect) A 11/25/18 21:30 - Clinical Findings Intake & Output: Intake & Output 11/25/18 11/26/18 11/26/18 23:59 07:59 15:59 Intake Total 720 / 720 340 / 340 Output Total 150 / 150 200 / 200 Balance 570 / 570 140 / 140 Weight 68.2 kg
[2018-11-26] MEDS: Heparin 25,000 UNIT/500 ML D5W 25,000 UNIT/500 ML BAG IVC SCH (08:01)
[2018-11-26] MEDS: methylPREDNISolone 125 MG/2 ML VIAL IVP SCH ×3 (08:06→21:21)
[2018-11-26 09:38] LABS: Hematocrit 28.5 % (37.5-50.1); Hemoglobin 8.3 g/dL (12.9-16.9)
[2018-11-26 12:26] LABS: Hepatitis B Surface Antigen Nonreactive (Nonreactive)
[2018-11-26 12:54] LABS: Hepatitis C Virus Antibody Nonreactive (Nonreactive)
[2018-11-26 12:55] LABS: Hepatitis B Core IgM Nonreactive (Nonreactive)
[2018-11-26 12:57] LABS: Hepatitis A Antibody IgM Nonreactive (Nonreactive)
[2018-11-26] MEDS ORDERED: levoFLOXacin 750 MG TABLET PO ONE (13:29)
[2018-11-26] MEDS ORDERED: Furosemide 20 MG/2 ML VIAL IVP ONE (15:51)
[2018-11-26 16:07] LABS: Hematocrit 34.2 % (37.5-50.1)
[2018-11-26 16:08] LABS: Hemoglobin 10.3 g/dL (12.9-16.9)
[2018-11-26 23:57] LABS: Hematocrit 35.5 % (37.5-50.1); Hemoglobin 10.5 g/dL (12.9-16.9)
[2018-11-27] MEDS ORDERED: *HR* LORazepam 2 MG/ML VIAL IVP ONE (03:25)
[2018-11-27] MEDS: Ipratropium/Albuterol Neb 3 ML IH SCH ×6 (03:48→23:54)
[2018-11-27 03:56] LABS: Basophils # 0.1 K/mcL (0.0-0.2); Basophils % 0.3 %; Hematocrit 37.3 % (37.5-50.1); Hemoglobin 10.7 g/dL (12.9-16.9); Lymphocytes # 0.4 K/mcL (0.6-4.6); Mean Corpuscular HGB Conc 28.7 g/dL (31.6-35.5); Mean Corpuscular Volume 83.6 fL (83.0-100.0); Monocytes # 1.1 K/mcL (0.0-1.3); Monocytes % 5.7 %; Neutrophils # 17.9 K/mcL (1.6-8.9); Nucleated Red Blood Cells 0.8 /100 WBC (0); Platelet Count 201 K/mcL (140-400); Red Blood Count 4.46 M/mcL (4.19-5.50); Red Cell Distribution Width 16.8 % (11.5-14.5)
[2018-11-27 04:15] LABS: Hypochromasia Present (Not Present); Platelet Estimate Normal (Normal)
[2018-11-27 04:22] LABS: BUN/Creatinine Ratio 41 (6-26); Blood Urea Nitrogen 50 mg/dL (8-23); Carbon Dioxide 19 mEq/L (23-29); Chloride 96 mEq/L (98-107); Glucose 133 mg/dL (70-105); Potassium 4.4 mEq/L (3.5-5.1); Sodium 132 mEq/L (136-145); eGFR For Non-African Americans 58 (> 60)
[2018-11-27 04:23] LABS: Calcium 8.8 mg/dL (8.6-10.3); Osmolality,Calculated 289 (280-300)
[2018-11-27] MEDS: methylPREDNISolone 125 MG/2 ML VIAL IVP SCH ×3 (08:35→20:47)
[2018-11-27] MEDS: Piperacillin/Tazobactam 3.375 GM in 0.9 % Sodium Chloride Mini Bag 100 ML IVPB SCH ×3 (08:36→23:45)
[2018-11-27] MEDS: Heparin 25,000 UNIT/500 ML D5W 25,000 UNIT/500 ML BAG IVC SCH (08:38)
[2018-11-27] MEDS: Albumin 25% 25gram/100mL 25 GM/100 ML IV.SOLN IVC SCH ×2 (10:49→12:36)
--- NOTE | 2018-11-27 10:51 | Cardiology Progress Note ---
Addendum entered and electronically signed by Nas Hardy DO 11/27/18 13:51: I have personally performed a face to face evaluation on this patient. I have reviewed and agree with the care plan. History and Exam by me shows: Ill appearing 68 year old with multiple comorbidities. Somewhat confused on examination. Known CAD, prior CABG. NSTEMI. Lacic acidosis, improving. Newly depressed LVEF. Coronavirus noted. Coarse breath sounds bilterally. AF, currently on heparin. 1 unit PRBCs given yesterday. Montior H/H given reported prior GI bleed. Currently hemodynamics appear stable, Cr normal. Recommend ongoing supportive therapy. If Hg remains stable, will need LHC prior to discharge. We will continue to monitor. Further recommendations to follow. Given multiple comorbidities, prognosis appears poor. This was discussed with cindy flores and ICU nurse. Patient states he would not want aggressive measures, i.e machines and chest compressions. I asked the ICU nurse to have the ICU team discuss and review code status with patient. Thanks, Nas Hardy DO, [facility] Original Note: Date of Encounter: 11/27/18 Time of Encounter: 10:00 Assessment and Plan (1) Sepsis Current Visit: Yes Status: Acute Patient presented as a transfer from [facility] with sepsis; initial WBC 26.5, lactate 22.7, and bilateral lung infiltrates. + coronavirus. Also found to be in atrial fibrillation with RVR, suspect new onset. Mgmt per ICU team; s/p 1 unit PRBC infusion for anemia of unclear etiology; of note, hx of GI bleed in April 2018. Lactic acid worsening, now 7.5. On empiric antibiotics, BLC pending. Continue supportive ICU care Qualifiers: Sepsis type: sepsis due to unspecified organism Qualified Code(s): A41.9 - Sepsis, unspecified organism (2) Afib Current Visit: Yes Status: Acute Suspect new onset atrial fibrillation with RVR in the setting of sepsis. Rate control improved with the addition of low dose betablocker, continue for now if able. CHA2Ds Vasc= 4 (age, HTN, CAD, CHF); ideally recommend senior living AC. Patient also with hx of GI bleed April 2018, currently anemic s/p 1 unit PRBC on 11/26/18--on Heparin gtt, tolerating today. Continue to monitor closely to determine if he will be a candidate in the outpatient setting. Asa 81 mg daily added today. Qualifiers: Atrial fibrillation type: paroxysmal Qualified Code(s): I48.0 - Paroxysmal atrial fibrillation (3) Elevated troponin Current Visit: No Status: Acute Peak troponin 8.05 with downward trend, now 3.59 in the setting of severe sepsis, anemia. No chest pain reported. ECG similar to previous. Hx of CAD s/p CABG in 2013, no ischemic evaluation since bypass. TTE this admission shows reduced LVEF, 25% with severe global LV systolic dysfunction, normal RV, severely dilated LA, moderate (MG=21 mmHG), moderate MAC, mild-moderate MR. Ideally recommend LHC; however he is not presently a candidate d/t anemia (PRBC infusion on 11/26/18). H/H stable overnight, currently tolerating heparin gtt. Continue conservative therapy for now with heparin gtt per ACS protocol. Will add asa, continue BB. (4) CHF exacerbation Current Visit: No Status: Acute Patient presented with acute respiratory distress at [facility]; found to have bilateral lung infiltrates. Also with new CMP, LVEF 25%--suspect tachycardiac vs. ischemic in etiology. Prior TTE 04/2018 demonstrated low normal LVEF, 50% Suspect dyspnea is multifactorial. Continue BB (metoprolol tartrate) for now, transition to long-acting upon discharge. Recommend ACEi/ARB upon discharge or in the outpatient setting if able. Cautious diuresis if needed. Qualifiers: Heart failure type: systolic Qualified Code(s): I50.23 - Acute on chronic systolic (congestive) heart failure (5) Coronary artery disease Current Visit: No Status: Chronic Plan as above. Hx of CAD s/p CABG; continue BB. Will add asa. Qualifiers: Coronary Disease-Associated Artery/Lesion type: [place] artery [place] vs. transplanted heart: [place] heart Associated angina: without angina Qualified Code(s): I25.10 - Atherosclerotic heart disease of [place] coronary artery without angina pectoris Discussion w patient/family: The assessment and plan as outlined above was discussed with the patient and/or family members who expressed understanding and agreement. All questions were answered. Thank you for involving us in the care of your patient. Please call with any questions. The patient will be discussed and reviewed with Dr. Hardy; changes to be made accordingly. Subjective Principal diagnosis: Bilateral PNA, sepsis Interval history: Seen and examined earlier this morning, first encounter with patient. Please note that Mr. Santoyo is a poor historian. Reports he initially went to [facility] due to fluid build up. He denies chest pain prior to admission. He is unsure of his home medications, however reports compliance. Denies abnormal or unusual bleeding. Objective Vital Signs, Last 4 Hours Temp Pulse Resp BP Pulse Ox 11/27/18 10:00 95 18 104/61 94 11/27/18 09:00 105 29 100/50 94 11/27/18 08:00 99 17 114/69 100 11/27/18 07:50 12 100 11/27/18 07:00 98.7 F 99 8 116/85 99 General: Conversant, Other (appears chronically ill) HEENT: Atraumatic, Normocephaly, Mucus Membranes Moist Cardiac: Other (irregularly irregular) Lungs: Other (Coarse breath sounds ) Neuro: Alert and responsive Abdomen: Soft Extremities: No Edema, Normal Pulses Results 11/27/18 03:42 11/27/18 03:42 Lab Results 11/26/18 11/26/18 11/27/18 15:56 23:10 03:42 WBC 19.9 H Hgb 10.3 L D 10.5 L 10.7 L Hct 34.2 L 35.5 L 37.3 L Plt Count 201 Sodium Potassium Chloride Carbon Dioxide BUN Creatinine Glucose Calcium 11/27/18 03:42 WBC Hgb Hct Plt Count Sodium 132 L Potassium 4.4 Chloride 96 L Carbon Dioxide 19 L BUN 50 H Creatinine 1.23 Glucose 133 H Calcium 8.8 Active Medications Albuterol/Ipratropium (Duoneb) 3 ml IH [id number] JEFFY Stop: 05/27/19 09:01 Last Admin: 11/27/18 07:48 Dose: 3 ml Heparin Sodium (Porcine) (Heparin) 4,700 unit 70 unit/kg (4700 unit) IVP Q6HR PRN PRN Reason: SEE COMMENTS Stop: 05/27/19 07:53 Heparin Sodium (Porcine) (Heparin) 2,300 unit 35 unit/kg (2300 unit) IVP Q6H PRN PRN Reason: SEE COMMENTS Stop: 05/27/19 07:53 Last Admin: 11/25/18 16:23 Dose: 2,300 unit Heparin Sodium/Dextrose (Heparin 25,000 Unit/500 Ml D5w) 25,000 unit in 500 mls @ 18.76 mls/hr IVC .Q24H JEFFY; Protocol Stop: 05/27/19 08:01 Last Titration: 11/27/18 10:57 Dose: 20 unit/kg/hr, 26.8 mls/hr Piperacillin Sod/Tazobactam (Sod 3.375 gm/ Sodium Chloride) 100 mls @ 25 mls/hr IVPB Q8HR JEFFY Stop: 05/27/19 16:01 Last Admin: 11/27/18 08:36 Dose: 25 mls/hr Vancomycin HCl 1,000 mg/ (Sodium Chloride) 250 mls @ 167 mls/hr IVPB Q12H [facility]; Protocol Stop: 05/28/19 15:01 Last Infusion: 11/27/18 04:57 Dose: Infused Albumin Human (Flexbumin) 25 gm in 100 mls @ 60 mls/hr IVC .Q1H40M [facility] Stop: 11/27/18 13:04 Last Admin: 11/27/18 10:49 Dose: 60 mls/hr Methylprednisolone (Solu-Medrol) 60 mg IVP TID JEFFY Stop: 05/27/19 09:01 Last Admin: 11/27/18 08:35 Dose: 60 mg Metoprolol Tartrate (Lopressor) 12.5 mg PO BID [facility] Stop: 05/28/19 10:31 Last Admin: 11/27/18 08:38 Dose: 12.5 mg Metoprolol Tartrate (Lopressor) 2.5 mg IVP Q6HR [facility] Stop: 05/29/19 12:01 - Imaging and Cardiology Echo: report reviewed Cardiac cath: report reviewed Other Results: 12 hour tele: avg [id number] afib - EKG Interpretation EKG results cardiology: personally reviewed Consult Discharge Plan - Plan Referrals: [facility],PCP [Primary Care Provider] -
--- NOTE | 2018-11-27 11:28 | Pulmonology Progress Note ---
<Lizbeth Pratt - Last Filed: 11/27/18 14:53> Date of Encounter: 11/27/18 Time of Encounter: 11:28 Assessment and Plan (1) Sepsis Current Visit: Yes Status: Acute Patient presented from [place] with sirs criteria of white blood cells 26.5, tachycardic, and lactate 11.7. Chest x-ray showed bilateral lung infiltrates possible pleural effusion. Blood cultures positive for strep pneumonia bacteremia Respiratory panel positive for mcfadden virus pneumonia He is currently saturating at 100% on 4 L nasal cannula. He is on vancomycin and Zosyn Lactic acid trending down, 7.5 down to 3.9 He is not on any pressors and blood pressure is stable Repeat blood culture drawn today Unsure of source of strep pneumo bacteremia, continue to investigate Passed swallow evaluation, soft diet Qualifiers: Sepsis type: sepsis due to unspecified organism Qualified Code(s): A41.9 - Sepsis, unspecified organism (2) Pneumonia Current Visit: No Status: Acute Chest x-ray positive for bilateral lung infiltrates Respiratory panel positive for mcfadden virus The blood culture positive for strep pneumonia Currently on methylprednisone, DuoNebs, continuing vancomycin and Zosyn Repeat blood culture pending Qualifiers: Pneumonia type: due to unspecified organism Laterality: unspecified laterality Lung location: unspecified part of lung Qualified Code(s): J18.9 - Pneumonia, unspecified organism (3) CHF exacerbation Current Visit: No Status: Acute History of congestive heart failure, new onset ejection fraction 25% Consider demand ischemia, high output heart failure secondary to anemia, diastolic CHF exacerbation. BNP on presentation 2813 Troponins were elevated at 5.53, 3.59, 2.23, continue to trend downwards. Avoid fluid overloading, be very cautious with fluid balance Cardiology on board Qualifiers: Heart failure type: systolic Qualified Code(s): I50.23 - Acute on chronic systolic (congestive) heart failure (4) Coronary artery disease Current Visit: No Status: Chronic History of CABG in 2013 Newly depressed LVEF currently 25% Continue beta maggy and aspirin Cardiology recommending left heart catheter prior to discharge if hemoglobin remains stable. Qualifiers: Coronary Disease-Associated Artery/Lesion type: [place] artery [place] vs. transplanted heart: [place] heart Associated angina: without angina Qualified Code(s): I25.10 - Atherosclerotic heart disease of [place] coronary artery wi thout angina pectoris (5) Atrial fibrillation with RVR Current Visit: Yes Status: Acute Patient found to be in A. fib with RVR Possibly secondary to sepsis, CHF exacerbation, anemia Currently on metoprolol 2.5 every 6 hours Continue heparin drip - however continue to watch for repeat GI bleed as he has recent history of GI bleed Cardiology on board (6) Anemia Current Visit: Yes Status: Acute Hemoglobin [facility] was 9.5. History of GI bleeds previously however EGD previously was negative for any bleeding Hemoglobin continued to decrease here Has been given 1 unit of packed red blood cells Hemoglobin currently 10.7 Consider GI bleed as he has a history of GI bleeds. Continue to monitor Qualifiers: Anemia type: unspecified type Qualified Code(s): D64.9 - Anemia, unspecified (7) Elevated transaminase level Current Visit: Yes Status: Acute AST 238, ALT 313 Patient denies right upper quadrant pain, appetite is normal Mild scleral icterus present History of unintended weight loss Cholecystitis vs bile duct obstruction vs hepatitis vs CHF exacerbation Will do CT abdomen and pelvis today Will be nothing by mouth at midnight in anticipation of a HIDA scan tomorrow Consider Hepatitis A, B, C workup if transaminases continue to rise Repeat AST and ALT pending Subjective Principal diagnosis: Bilateral PNA, sepsis Interval history: Buddy Santoyo is a 68-year-old male, this is stage III in ICU. Past medical history COPD, status post CABG, diabetes mellitus, anemia, history of GI bleed, and CHF. Currently has sepsis, CHF exacerbation, elevated troponins, strep pneumonia bacteremia, mcfadden virus pneumonia. Today he is having significant ri ght upper quadrant pain as well as nonproductive cough. He was having difficulty chewing and swallowing breakfast. He denies nausea, vomiting, fever or chills chest pain, shortness of breath, diarrhea, constipation, dysuria calf pain. Objective PUL Vital signs: Last Vital Signs Temp 98.7 F 11/27/18 07:00 Pulse 98 11/27/18 11:00 Resp 18 11/27/18 10:00 BP 104/61 11/27/18 10:00 Pulse Ox 94 11/27/18 10:00 Gen.: Vitals noted. Mild respiratory distress. AAOx3, resting comfortably in bed, cachexic HEENT: Scleral icterus present, EOMI, oropharynx clear, poor dentition noted, Normocephalic, atraumatic, MMM Neck: Supple. No adenopathy. Trachea midline. Cardiac: Tachycardic, regular rhythm, no murmur, +S1/S2, No BLE edema Pulmonary: Bilateral rales, equal chest expansion, mildly labored breathing Abdomen: soft, nontender, BS noted, no guarding, no palpable HSM Back: Nontender throughout. Kyphosis. Skin: warm and dry, no visible lesions. MSK: ROM intact, gait no assessed while in bed. Non tender calf or clubbing Neuro: A&Ox3, moves all extremities, no focal deficits, sensation intact, CN2-12 intact Psych: Appropriate mood and behavior, AOx3 Results - Laboratory Findings CBC and BMP: 11/27/18 03:42 11/27/18 03:42 PT/INR, D-dimer PT 27.3 Seconds (9.4-12.1) H 11/25/18 08:40 Abnormal lab findings: Abnormal lab results WBC 19.9 K/mcL (4.3-11.1) H 11/27/18 03:42 Hgb 10.7 g/dL (12.9-16.9) L 11/27/18 03:42 Hct 37.3 % (37.5-50.1) L 11/27/18 03:42 MCH 24.0 pg (28.0-33.3) L 11/27/18 03:42 MCHC 28.7 g/dL (31.6-35.5) L 11/27/18 03:42 RDW 16.8 % (11.5-14.5) H 11/27/18 03:42 Band Neutrophils % 30.0 % (0-4) H 11/25/18 15:30 Neutrophils # 17.9 K/mcL (1.6-8.9) H 11/27/18 03:42 Lymphocytes # 0.4 K/mcL (0.6-4.6) L 11/27/18 03:42 Nucleated RBCs/100 WBC 0.8 /100 WBC (0) H 11/27/18 03:42 Hypochromasia Present (Not Present) A 11/27/18 03:42 Anisocytosis 1+ (Not Present) A 11/26/18 03:30 Ovalocytes 1+ (Not Present) A 11/26/18 03:30 PT 27.3 Seconds (9.4-12.1) H 11/25/18 08:40 Heparin Anti-Xa, Unfract 0.23 IU/mL (0.30-0.70) L 11/27/18 09:23 Sodium 132 mEq/L (136-145) L 11/27/18 03:42 Chloride 96 mEq/L (98-107) L 11/27/18 03:42 Carbon Dioxide 19 mEq/L (23-29) L 11/27/18 03:42 BUN 50 mg/dL (8-23) H 11/27/18 03:42 Est GFR (Non-Af Amer) 58 (> 60) L 11/27/18 03:42 BUN/Creatinine Ratio 41 (6-26) H 11/27/18 03:42 Glucose 133 mg/dL (70-105) H 11/27/18 03:42 POC Glucose 130 mg/dL (70-99) H 11/26/18 17:12 Lactic Acid 3.9 mmol/L (0.5-2.2) H 11/27/18 10:37 Total Bilirubin 1.3 mg/dL (0.3-1.0) H 11/25/18 17:23 Direct Bilirubin 0.8 mg/dL (0.0-0.2) H 11/25/18 17:23 AST 238 Units/L (13-39) H 11/25/18 17:23 ALT 313 Units/L (7-52) H 11/25/18 17:23 Troponin I 2.23 ng/mL (< 0.04) H* 11/27/18 10:44 B-Natriuretic Peptide 2813 pg/mL (Less than 100) H 11/25/18 09:22 Serum Total Protein 5.6 g/dL (6.4-8.9) L 11/25/18 17:23 Albumin 3.1 g/dL (3.5-5.7) L 11/25/18 17:23 Coronavirus OC43 (PCR) DETECTED (Not Detect) A 11/25/18 21:30 - Microbiology Findings Microbiology Findings: Microbiology, Last 48 Hours 11/27/18 09:29 Blood Culture - Preliminary Peripheral Venipuncture Culture is incubating and being continuously monitored for growth. Final report to follow. 11/27/18 09:23 Blood Culture - Preliminary Peripheral Venipuncture Culture is incubating and being continuously monitored for growth. Final report to follow. 11/25/18 18:05 Urine Culture - Final Urine,Clean Catch No growth. - Clinical Findings Intake & Output: Intake & Output 11/26/18 11/27/18 11/27/18 23:59 07:59 15:59 Intake Total 350 / 350 1090 / 1090 165 / 165 Output Total 0 / 0 350 / 350 0 / 0 Balance 350 / 350 740 / 740 165 / 165 Weight 68.2 kg Consult Discharge Plan - Plan [facility]: [facility]Primary Care Provider[facility] - <Gregg Marx - Last Filed: 11/27/18 16:43> Date of Encounter: 11/27/18 Objective PUL Vital signs: Last Vital Signs Temp 96.7 F L 11/27/18 11:54 Pulse 98 11/27/18 11:00 Resp 18 11/27/18 16:21 BP 104/61 11/27/18 10:00 Pulse Ox 94 11/27/18 16:21 Results - Laboratory Findings CBC and BMP: 11/27/18 03:42 11/27/18 03:42 PT/INR, D-dimer PT 27.3 Seconds (9.4-12.1) H 11/25/18 08:40 Abnormal lab findings: Abnormal lab results WBC 19.9 K/mcL (4.3-11.1) H 11/27/18 03:42 Hgb 10.7 g/dL (12.9-16.9) L 11/27/18 03:42 Hct 37.3 % (37.5-50.1) L 11/27/18 03:42 MCH 24.0 pg (28.0-33.3) L 11/27/18 03:42 MCHC 28.7 g/dL (31.6-35.5) L 11/27/18 03:42 RDW 16.8 % (11.5-14.5) H 11/27/18 03:42 Band Neutrophils % 30.0 % (0-4) H 11/25/18 15:30 Neutrophils # 17.9 K/mcL (1.6-8.9) H 11/27/18 03:42 Lymphocytes # 0.4 K/mcL (0.6-4.6) L 11/27/18 03:42 Nucleated RBCs/100 WBC 0.8 /100 WBC (0) H 11/27/18 03:42 Hypochromasia Present (Not Present) A 11/27/18 03:42 Anisocytosis 1+ (Not Present) A 11/26/18 03:30 Ovalocytes 1+ (Not Present) A 11/26/18 03:30 PT 27.3 Seconds (9.4-12.1) H 11/25/18 08:40 Heparin Anti-Xa, Unfract 0.23 IU/mL (0.30-0.70) L 11/27/18 09:23 Sodium 132 mEq/L (136-145) L 11/27/18 03:42 Chloride 96 mEq/L (98-107) L 11/27/18 03:42 Carbon Dioxide 19 mEq/L (23-29) L 11/27/18 03:42 BUN 50 mg/dL (8-23) H 11/27/18 03:42 Est GFR (Non-Af Amer) 58 (> 60) L 11/27/18 03:42 BUN/Creatinine Ratio 41 (6-26) H 11/27/18 03:42 Glucose 133 mg/dL (70-105) H 11/27/18 03:42 POC Glucose 130 mg/dL (70-99) H 11/26/18 17:12 Lactic Acid 4.2 mmol/L (0.5-2.2) H* 11/27/18 14:55 Total Bilirubin 1.3 mg/dL (0.3-1.0) H 11/25/18 17:23 Direct Bilirubin 0.8 mg/dL (0.0-0.2) H 11/25/18 17:23 AST 81 Units/L (13-39) H 11/27/18 14:55 ALT > 500 Units/L (7-52) H 11/27/18 14:55 Troponin I 2.23 ng/mL (< 0.04) H* 11/27/18 10:44 B-Natriuretic Peptide 2813 pg/mL (Less than 100) H 11/25/18 09:22 Serum Total Protein 5.6 g/dL (6.4-8.9) L 11/25/18 17:23 Albumin 3.1 g/dL (3.5-5.7) L 11/25/18 17:23 Coronavirus OC43 (PCR) DETECTED (Not Detect) A 11/25/18 21:30 - Microbiology Findings Microbiology Findings: Microbiology, Last 48 Hours 11/27/18 09:29 Blood Culture - Preliminary Peripheral Venipuncture Culture is incubating and being continuously monitored for growth. Final report to follow. 11/27/18 09:23 Blood Culture - Preliminary Peripheral Venipuncture Culture is incubating and being continuously monitored for growth. Final report to follow. 11/25/18 18:05 Urine Culture - Final Urine,Clean Catch No growth. - Clinical Findings Intake & Output: Intake & Output 11/27/18 11/27/18 11/27/18 07:59 15:59 23:59 Intake Total 1090 / 1090 265 / 265 Output Total 350 / 350 0 / 0 Balance 740 / 740 265 / 265 Weight 68.2 kg - Attending Attestation I saw and evaluated this patient and my medical decision-making was reviewed with the Resident Physician. I agree with the documented findings, disposition and treatment plan as described except to the extent set forth below. We independently had [id number] contact with the patient Patient seen and examined at bedside Labs, radiology, chart personally reviewed. Management was reviewed during multidisciplinary critical care rounds. KITCHEN UTILITY ASSOCIATE: Patient is little bit altered most likely due to toxic/metabolic encephalopathy secondary to sepsis and liver failure. Pulm: Patient has acceptable oxygenation and ventilation patient has acute on chronic systolic heart failure complicated by possible pneumonia. Cards: Patient has acute on chronic systolic heart failure most likely due to ischemic cardiomyopathy NSTEMI on heparin drip followed by cardiology. FEN-GI: Patient should be on soft diet. Worsening transaminitis. To rule out portal vein Hepatic vein thrombosis to avoid hepatotoxic drugs. To give N- acetylcysteine for hepato-protective effect. Is still consistent with secondary due to congestive hepatomegaly complicated by sepsis. Renal: Labs and output were reviewed worsening creatinine function cardiorenal versus prerenal. ID: To Cover with broad-spectrum antibiotics for pneumonia Heme/Onc: Labs reviewed Endo: Glucose Monitored Integ/MSK: Skin Care per routine ICU Nursing Protocol to prevent ulcers. Lines: All lines examined without evidence of infection : Dispo: patient can be 2 N. stepdown patient CODE: Full Code
[2018-11-27] MEDS: *HR* Metoprolol 5 MG/5 ML VIAL IVP SCH ×3 (12:12→23:40)
[2018-11-27] MEDS: Aspirin Enteric Coated 81 MG Tablet PO SCH (15:03)
[2018-11-27] MEDS ORDERED: WATER IVC ONE ×2 (16:12→17:30)
[2018-11-27] MEDS ORDERED: D5 IVC ONE ×2 (16:12→17:30)
[2018-11-27] MEDS ORDERED: ACETYLCYSTEINE IVC ONE ×2 (16:12→17:30)
[2018-11-27 16:57] LABS: INR 2.8; Prothrombin Time 31.4 Seconds (9.4-12.1)
--- NOTE | 2018-11-27 17:12 | Electrocardiograph Report ---
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
[2018-11-27 17:15] LABS: Bilirubin,Direct 1.4 mg/dL (0.0-0.2); Bilirubin,Total 2.4 mg/dL (0.3-1.0)
[2018-11-27] MEDS ORDERED: Acetylcysteine 6,800 MG in D5% in Water 1,000 ML IVC ONE (21:30)
[2018-11-28 01:55] LABS: Red Cell Distribution Width 16.8 % (11.5-14.5)
[2018-11-28 01:57] LABS: Hematocrit 31.1 % (37.5-50.1); Hemoglobin 8.9 g/dL (12.9-16.9); Mean Corpuscular HGB Conc 28.6 g/dL (31.6-35.5); Mean Corpuscular Hemoglobin 23.7 pg (28.0-33.3); Mean Corpuscular Volume 82.9 fL (83.0-100.0); Mean Platelet Volume 11.1 fL (9.4-12.4); Nucleated Red Blood Cells 1.7 /100 WBC (0); Platelet Count 139 K/mcL (140-400); Red Blood Count 3.75 M/mcL (4.19-5.50)
[2018-11-28 02:05] LABS: INR 3.8; Prothrombin Time 42.6 Seconds (9.4-12.1)
[2018-11-28 02:17] LABS: BUN/Creatinine Ratio 47 (6-26); Bilirubin,Direct 1.9 mg/dL (0.0-0.2); Bilirubin,Total 2.7 mg/dL (0.3-1.0); Blood Urea Nitrogen 61 mg/dL (8-23); Calcium 8.3 mg/dL (8.6-10.3); Carbon Dioxide 22 mEq/L (23-29); Chloride 92 mEq/L (98-107); Glucose 237 mg/dL (70-105); Osmolality,Calculated 305 (280-300); Potassium 3.9 mEq/L (3.5-5.1); Sodium 135 mEq/L (136-145); eGFR For Non-African Americans 55 (> 60)
[2018-11-28 02:20] LABS: Hypochromasia Present (Not Present); Lymphocytes # 0.8 K/mcL (0.6-4.6); Monocytes # 1.7 K/mcL (0.0-1.3); Neutrophils # 18.5 K/mcL (1.6-8.9); Platelet Estimate Slight Decrease (Normal)
[2018-11-28 03:00] LABS: Alanine Aminotransferase > 500 Units/L (7-52); Aspartate Amino Transferase 901 Units/L (13-39)
[2018-11-28] MEDS: Ipratropium/Albuterol Neb 3 ML IH SCH ×6 (03:16→23:32)
[2018-11-28 03:41] LABS: ABG Base Excess -4 mEq/L (-2 to 3); ABG HCO3 23 mEq/L (21-27); ABG Oxygen Saturation 98 % (95-98); ABG PCO2 50 mmHg (35-45); ABG PH 7.27 pH Units (7.32-7.45); ABG PO2 131 mmHg (85-104); ABG TCO2 24 mEq/L (20-26)
[2018-11-28] MEDS: Heparin 25,000 UNIT/500 ML D5W 25,000 UNIT/500 ML BAG IVC SCH (04:00)
[2018-11-28] MEDS: *HR* Metoprolol 5 MG/5 ML VIAL IVP SCH ×4 (05:11→23:19)
[2018-11-28] MEDS ORDERED: Furosemide 20 MG/2 ML VIAL IVP ONE ×2 (06:47→11:13)
[2018-11-28] MEDS ORDERED: Aminoglycoside Consult 1 EACH MC ONE (07:37)
[2018-11-28] MEDS: methylPREDNISolone 125 MG/2 ML VIAL IVP SCH (07:44)
[2018-11-28] MEDS: Piperacillin/Tazobactam 3.375 GM in 0.9 % Sodium Chloride Mini Bag 100 ML IVPB SCH (07:44)
[2018-11-28] MEDS: Aspirin Enteric Coated 81 MG Tablet PO SCH (07:53)
--- NOTE | 2018-11-28 09:28 | General Surgery Consult Note ---
Date of Encounter: 11/28/18 Time of Encounter: 09:24 Assessment and Plan (1) Abnormal finding on imaging Current Visit: Yes Status: Acute -KUB 11/25 non-obstructive bowel gas pattern -right upper quadrant ultrasound 11/27/2018: small amount of gallbladder sludge with distended gallbladder and periCholecystic fluid. Findings raise possibility of acute cholecystitis, no biliary dilation, no gastrointestinal abnormality demonstrated -chest abd/pelvis CT without contrast 11/27/2018 notes high-density material in the gallbladder lumen and gallbladder wall thickening WBC trending since 11/25: 186.>>14.5>>19.9>>21.0 and with bandemia; Lactic acid 4.8>>5.7??6.1>>10.0 Bilirubn trending: total-1.3>>2.4>>2.7; Direct 0.8>>1.4>>1.9; Indirect 0.5 AST/ALT: 238/313, >>81/>500, >>901/>500 Alk phos 53>>61>>58 History of Present Illness Consult date: 11/28/18 (Dr. Nathan Solorio) Reason for consult: abdominal pain Requesting physician: Lizbeth Pratt History of present illness: JConsult cancelled. Code status changed. Disregard note. Past Med Surg Social Fam HX - Past Medical History Medical history: COPD, coronary artery disease, diabetes, GERD, hyperlipidemia, hypertension, myocardial infarction Psychiatric history: depression, schizophrenia - Past Surgical History Surgical History: coronary bypass (CABG) Additional surgical history: carotidendarterectomy - Social History Smoking Status: Current every day smoker Smokeless Tobacco Status: No Alcohol use: none Drug use: none Medications and Allergies Magnesium Oxide [Magnesium] 400 mg PO BID 09/15/17 [History] amLODIPine [Norvasc] 5 mg PO DAILY 09/15/17 [History] Aspirin Enteric Coated [Aspirin EC] 81 mg PO DAILY tablet. 09/18/17 [Rx] Metoprolol [Lopressor] 25 mg PO BID #60 tablet 09/18/17 [Rx] Albuterol Neb [Proventil Neb] 2.5 mg IH Q6H PRN 11/25/18 [History] Albuterol Sulfate [Albuterol Inhaler] 2 puff IH Q4HR PRN 11/25/18 [History] Furosemide [Lasix] 40 mg PO BID 11/25/18 [History] Omeprazole [PriLOSEC] 20 mg PO DAILY 11/25/18 [History] Potassium Chloride [Klor-Con 10] 20 meq PO DAILY 11/25/18 [History] Sucralfate [Carafate] 1 gm PO TID 11/25/18 [History] Tiotropium [place] [Spiriva Respimat] 2 puff IH DAILY 11/25/18 [History] Allergy/AdvReac Type Severity Reaction Status Date / Time No Known Allergies Allergy Verified 11/25/18 13:21 Review of Systems All systems PM: The remainder of the systems were reviewed and are negative General Surgery Exam Initial Vital Signs Temp Pulse Resp BP Pulse Ox 98.6 F 115 22 130/75 95 11/25/18 07:30 11/25/18 07:30 11/25/18 07:30 11/25/18 07:30 11/25/18 07:30 Exam Initial Vital Signs Temp Pulse Resp BP Pulse Ox 98.6 F 115 22 130/75 95 11/25/18 07:30 11/25/18 07:30 11/25/18 07:30 11/25/18 07:30 11/25/18 07:30 Results - Labs 11/28/18 01:47 11/28/18 01:47 Abnormal lab results WBC 21.0 K/mcL (4.3-11.1) H 11/28/18 01:47 RBC 3.75 M/mcL (4.19-5.50) L 11/28/18 01:47 Hgb 8.9 g/dL (12.9-16.9) L D 11/28/18 01:47 Hct 31.1 % (37.5-50.1) L 11/28/18 01:47 MCV 82.9 fL (83.0-100.0) L 11/28/18 01:47 MCH 23.7 pg (28.0-33.3) L 11/28/18 01:47 MCHC 28.6 g/dL (31.6-35.5) L 11/28/18 01:47 RDW 16.8 % (11.5-14.5) H 11/28/18 01:47 Plt Count 139 K/mcL (140-400) L 11/28/18 01:47 Band Neutrophils % 20.0 % (0-4) H 11/28/18 01:47 Neutrophils # 18.5 K/mcL (1.6-8.9) H 11/28/18 01:47 Monocytes # 1.7 K/mcL (0.0-1.3) H 11/28/18 01:47 Nucleated RBCs/100 WBC 1.7 /100 WBC (0) H 11/28/18 01:47 Platelet Estimate Slight Decrease (Normal) L 11/28/18 01:47 Hypochromasia Present (Not Present) A 11/28/18 01:47 Anisocytosis 1+ (Not Present) A 11/26/18 03:30 Ovalocytes 1+ (Not Present) A 11/26/18 03:30 PT 42.6 Seconds (9.4-12.1) H 11/28/18 01:47 ABG pH 7.27 pH Units (7.32-7.45) L 11/28/18 03:38 ABG pCO2 50 mmHg (35-45) H 11/28/18 03:38 ABG pO2 131 mmHg (85-104) H 11/28/18 03:38 ABG Base Excess -4 mEq/L (-2 to 3) L 11/28/18 03:38 Sodium 135 mEq/L (136-145) L 11/28/18 01:47 Chloride 92 mEq/L (98-107) L 11/28/18 01:47 Carbon Dioxide 22 mEq/L (23-29) L 11/28/18 01:47 BUN 61 mg/dL (8-23) H 11/28/18 01:47 Est GFR (Non-Af Amer) 55 (> 60) L 11/28/18 01:47 BUN/Creatinine Ratio 47 (6-26) H 11/28/18 01:47 Glucose 237 mg/dL (70-105) H 11/28/18 01:47 POC Glucose 130 mg/dL (70-99) H 11/26/18 17:12 Calculated Osmolality 305 (280-300) H 11/28/18 01:47 Lactic Acid 10.0 mmol/L (0.5-2.2) H* 11/28/18 07:58 Calcium 8.3 mg/dL (8.6-10.3) L 11/28/18 01:47 Total Bilirubin 2.7 mg/dL (0.3-1.0) H 11/28/18 01:47 Direct Bilirubin 1.9 mg/dL (0.0-0.2) H 11/28/18 01:47 AST 901 Units/L (13-39) H 11/28/18 01:47 ALT > 500 Units/L (7-52) H 11/28/18 01:47 Troponin I 2.23 ng/mL (< 0.04) H* 11/27/18 10:44 B-Natriuretic Peptide 2813 pg/mL (Less than 100) H 11/25/18 09:22 Serum Total Protein 5.6 g/dL (6.4-8.9) L 11/25/18 17:23 Albumin 3.1 g/dL (3.5-5.7) L 11/25/18 17:23 Vancomycin Trough 16 mcg/mL (5-10) H 11/28/18 01:47 Coronavirus OC43 (PCR) DETECTED (Not Detect) A 11/25/18 21:30 Diabetes panel 11/27/18 11/27/18 11/27/18 Range/Units 14:55 14:55 16:38 Sodium (136-145) mEq/L Potassium (3.5-5.1) mEq/L Chloride (98-107) mEq/L Carbon Dioxide (23-29) mEq/L BUN (8-23) mg/dL Creatinine (0.70-1.30) mg/dL Glucose (70-105) mg/dL Calcium (8.6-10.3) mg/dL AST 81 H (13-39) Units/L ALT > 500 H (7-52) Units/L Alkaline Phosphatase 61 (34-104) Units/L 11/28/18 11/28/18 11/28/18 Range/Units 01:47 01:47 01:47 Sodium 135 L (136-145) mEq/L Potassium 3.9 (3.5-5.1) mEq/L Chloride 92 L (98-107) mEq/L Carbon Dioxide 22 L (23-29) mEq/L BUN 61 H (8-23) mg/dL Creatinine 1.30 (0.70-1.30) mg/dL Glucose 237 H (70-105) mg/dL Calcium 8.3 L (8.6-10.3) mg/dL AST 901 H (13-39) Units/L ALT > 500 H (7-52) Units/L Alkaline Phosphatase 58 (34-104) Units/L Calcium panel 11/28/18 Range/Units 01:47 Calcium 8.3 L (8.6-10.3) mg/dL Pituitary panel 11/28/18 Range/Units 01:47 Sodium 135 L (136-145) mEq/L Potassium 3.9 (3.5-5.1) mEq/L Chloride 92 L (98-107) mEq/L Carbon Dioxide 22 L (23-29) mEq/L BUN 61 H (8-23) mg/dL Creatinine 1.30 (0.70-1.30) mg/dL Glucose 237 H (70-105) mg/dL Calcium 8.3 L (8.6-10.3) mg/dL Adrenal panel 11/27/18 11/27/18 11/27/18 Range/Units 14:55 14:55 16:38 Sodium (136-145) mEq/L Potassium (3.5-5.1) mEq/L Chloride (98-107) mEq/L Carbon Dioxide (23-29) mEq/L BUN (8-23) mg/dL Creatinine (0.70-1.30) mg/dL Glucose (70-105) mg/dL Calcium (8.6-10.3) mg/dL Total Bilirubin (0.3-1.0) mg/dL AST 81 H (13-39) Units/L ALT > 500 H (7-52) Units/L Alkaline Phosphatase 61 (34-104) Units/L 11/27/18 11/28/18 11/28/18 Range/Units 16:38 01:47 01:47 Sodium (136-145) mEq/L Potassium (3.5-5.1) mEq/L Chloride (98-107) mEq/L Carbon Dioxide (23-29) mEq/L BUN (8-23) mg/dL Creatinine (0.70-1.30) mg/dL Glucose (70-105) mg/dL Calcium (8.6-10.3) mg/dL Total Bilirubin 2.4 H 2.7 H (0.3-1.0) mg/dL AST (13-39) Units/L ALT (7-52) Units/L Alkaline Phosphatase 58 (34-104) Units/L 11/28/18 11/28/18 Range/Units 01:47 01:47 Sodium 135 L (136-145) mEq/L Potassium 3.9 (3.5-5.1) mEq/L Chloride 92 L (98-107) mEq/L Carbon Dioxide 22 L (23-29) mEq/L BUN 61 H (8-23) mg/dL Creatinine 1.30 (0.70-1.30) mg/dL Glucose 237 H (70-105) mg/dL Calcium 8.3 L (8.6-10.3) mg/dL Total Bilirubin (0.3-1.0) mg/dL AST 901 H (13-39) Units/L ALT > 500 H (7-52) Units/L Alkaline Phosphatase (34-104) Units/L All other labs normal. Consult Discharge Plan - Plan [facility]errals: [facility] [Primary Care Provider] -
--- NOTE | 2018-11-28 10:01 | Event Note ---
Date of Encounter: 11/28/18 Time of Encounter: 07:30 The ICU team spoke with Son of he said whatever patient wishes regarding the goals of care he wants the ICU team to comply with that. He said since patient cannot make decisions on his own he wanted the ICU team to contact his sister Natasha as she knows him the best regarding the goals of care we called Sister according to patient wishes if he has multiorgan failure he never wanted to be on Mechanical ventilation wouldnt want any aggressive measures so the Code status was changed to DNRCC .
--- NOTE | 2018-11-28 10:01 | Event Note ---
Date of Encounter: 11/28/18 Time of Encounter: 09:20 ICU team was in contact with patient's sister, Natasha Alvarado in regards to further plan of care. Per the patient's son, she is the closest family member to Mr. Santoyo. I called her and we discussed goals of care as well as CODE STATUS. Ms. Alvarado asked if his situation was critical to which I agreed yes. She also asked what his prognosis was, and I replied that he had a poor prognosis. She stated that her brother does not want aggressive measures. She states that she and her brother did experience aggressive measures, full code status and life- saving treatments during their mother's end of life care, and Mr. Santoyo stated that he would not want similar aggressive measures to be taken upon his behalf. She stated that he would not want a decreased quality of life and being dependent on others, and that she would like him to be DNR comfort care. His CODE STATUS was changed from full code to DNR comfort care.
--- NOTE | 2018-11-28 10:06 | Cardiology Progress Note ---
Addendum entered and electronically signed by Nas Hardy DO 11/28/18 11:16: I have personally performed a face to face evaluation on this patient. I have reviewed and agree with the care plan. History and Exam by me shows: Seen and examined. More ill appearing. Lethargic. Reduced level of consciousness. Agree with below. Unfortunate 68 y/o with multiple comorbidities. Severely reduced LV function. History of CAD, prior CABG. AF, HR 90-100s. Ordinarily, we would consider [facility] to evaluate coronaries/bypasses, but patient with multiple acute comorbidities - anemia s/p transfusion, worsening LFTs, coagulopathy, abnormal CT suggesting possible acute cholecystitis, coronavirus, possible sepsis, lactic acidosis. ICU spoke with patient's sister this morning. Given his poor condition, decision was made to transition to focus on comfort. Palliative care to see patient. Thanks, Nas Hardy DO, [facility] Original Note: Date of Encounter: 11/28/18 Time of Encounter: 09:00 Assessment and Plan (1) Sepsis Current Visit: Yes Status: Acute Patient presented as a transfer from [facility] with sepsis; initial WBC 26.5, lactate 22.7, and bilateral lung infiltrates. + coronavirus. Also found to be in atrial fibrillation with RVR, suspect new onset. Mgmt per ICU team; s/p 1 unit PRBC infusion for anemia of unclear etiology; of note, hx of GI bleed in April 2018. Lactic acid worsening, now >10.0; H/H continues to downtrend. On empiric antibiotics, BLC pending. Family meeting today with sister, Palliative Care consulted, patient now DNR-CC. Continue comfort measures. Qualifiers: Sepsis type: sepsis due to unspecified organism Qualified Code(s): A41.9 - Sepsis, unspecified organism (2) Afib Current Visit: Yes Status: Acute Suspect new onset atrial fibrillation with RVR in the setting of sepsis. Rate control improved with the addition of low dose betablocker, continue for now if able. CHA2Ds Vasc= 4 (age, HTN, CAD, CHF); ideally recommend usp AC. Patient also with hx of GI bleed April 2018, currently anemic s/p 1 unit PRBC on 11/26/18--on Heparin gtt, tolerating today. Continue to monitor closely to determine if he will be a candidate in the outpatient setting. Asa 81 mg daily added today. Palliative Care consulted, now DNR-CC. Qualifiers: Atrial fibrillation type: paroxysmal Qualified Code(s): I48.0 - Paroxysmal atrial fibrillation (3) Elevated troponin Current Visit: No Status: Acute Peak troponin 8.05 with downward trend, now 3.59 in the setting of severe sepsis, anemia. No chest pain reported. ECG similar to previous. Hx of CAD s/p CABG in 2013, no ischemic evaluation since bypass. TTE this admission shows reduced LVEF, 25% with severe global LV systolic dysfunction, normal RV, severely dilated LA, moderate (MG=21 mmHG), moderate MAC, mild-moderate MR. Ideally recommend LHC; however he is not presently a candidate d/t anemia (PRBC infusion on 11/26/18); Continue conservative therapy for now with heparin gtt per [facility] protocol; on BB. ASA added yesterday, significant drop in H/H overnight. 11/28/18: Patient is now palliative Care, DNRCC. Continue comfort measures only. No further recommendations from Cardiology as inpatient. (4) CHF exacerbation Current Visit: No Status: Acute Patient presented with acute respiratory distress at [facility]; found to have bilateral lung infiltrates. Also with new CMP, LVEF 25%--suspect tachycardiac vs. ischemic in etiology. Prior TTE 04/2018 demonstrated low normal LVEF, 50% Suspect dyspnea is multifactorial. Possible acute cholecystitis; LFTs worsening, H/H downtrending. Poor prognosis. Patient is now DNRCC; palliative care consulted. No further inpatient recommendations from Cardiology, will sign-off. Qualifiers: Heart failure type: systolic Qualified Code(s): I50.23 - Acute on chronic systolic (congestive) heart failure (5) Coronary artery disease Current Visit: No Status: Chronic Plan as above. Qualifiers: Coronary Disease-Associated Artery/Lesion type: [place] artery [place] vs. transplanted heart: [place] heart Associated angina: without angina Qualified Code(s): I25.10 - Atherosclerotic heart disease of [place] coronary artery without angina pectoris Discussion w patient/family: The assessment and plan as outlined above was discussed with the patient and/or family members who expressed understanding and agreement. All questions were answered. Thank you for involving us in the care of your patient. Please call with any questions. The patient will be discussed and reviewed with Dr. Hardy; changes to be made accordingly. Subjective Principal diagnosis: Bilateral PNA, sepsis Interval history: Seen and examined earlier this morning, clinical status noted to be worsening this AM. Please note that Mr. Santoyo is a poor historian. Reports he initially went to [place] ED due to fluid build up. He denies chest pain prior to admission. Patient is alert to self only; appears to be in respiratory distress, non- rebreather in placed. Objective Vital Signs, Last 4 Hours Temp Pulse Resp BP Pulse Ox 11/28/18 09:00 102 20 100/55 99 11/28/18 08:05 20 94 11/28/18 08:00 97.7 F 109 24 116/68 96 11/28/18 07:32 98.0 F 11/28/18 07:00 125 37 118/37 92 General: Other (appears critically ill; labored breathing) HEENT: Atraumatic, Normocephaly Cardiac: Other (irregularly irregular) Neuro: Other (alert to self) Abdomen: Soft, Non-Tender Extremities: Other (weak peripheral pulses) Results 11/28/18 01:47 11/28/18 01:47 Lab Results 11/27/18 11/27/18 11/27/18 10:44 14:55 14:55 WBC Hgb Hct Plt Count INR Sodium Potassium Chloride Carbon Dioxide BUN Creatinine Glucose Calcium Total Bilirubin AST 81 H ALT > 500 H Alkaline Phosphatase Troponin I 2.23 H* 11/27/18 11/27/18 11/27/18 16:38 16:38 16:38 WBC Hgb Hct Plt Count INR 2.8 Sodium Potassium Chloride Carbon Dioxide BUN Creatinine Glucose Calcium Total Bilirubin 2.4 H AST ALT Alkaline Phosphatase 61 Troponin I 11/28/18 11/28/18 11/28/18 01:47 01:47 01:47 WBC Hgb Hct Plt Count INR 3.8 Sodium Potassium Chloride Carbon Dioxide BUN Creatinine Glucose Calcium Total Bilirubin 2.7 H AST ALT Alkaline Phosphatase 58 Troponin I 11/28/18 11/28/18 11/28/18 01:47 01:47 01:47 WBC 21.0 H Hgb 8.9 L D Hct 31.1 L Plt Count 139 L INR Sodium 135 L Potassium 3.9 Chloride 92 L Carbon Dioxide 22 L BUN 61 H Creatinine 1.30 Glucose 237 H Calcium 8.3 L Total Bilirubin AST 901 H ALT > 500 H Alkaline Phosphatase Troponin I Active Medications Albuterol/Ipratropium (Duoneb) 3 ml IH [id number] [facility] Stop: 05/27/19 09:01 Last Admin: 11/28/18 08:05 Dose: 3 ml Aspirin (Aspirin Ec) 81 mg PO DAILY [facility] Stop: 05/29/19 11:46 Last Admin: 11/28/18 07:53 Dose: Not Given Heparin Sodium (Porcine) (Heparin) 4,700 unit 70 unit/kg (4700 unit) IVP Q6HR PRN PRN Reason: SEE COMMENTS Stop: 05/27/19 07:53 Last Admin: 11/27/18 19:26 Dose: 4,700 unit Heparin Sodium (Porcine) (Heparin) 2,300 unit 35 unit/kg (2300 unit) IVP Q6H PRN PRN Reason: SEE COMMENTS Stop: 05/27/19 07:53 Last Admin: 11/25/18 16:23 Dose: 2,300 unit Heparin Sodium/Dextrose (Heparin 25,000 Unit/500 Ml D5w) 25,000 unit in 500 mls @ 18.76 mls/hr IVC .Q24H [facility]; Protocol Stop: 05/27/19 08:01 Last Admin: 11/28/18 04:00 Dose: 24 unit/kg/hr, 32.16 mls/hr Piperacillin Sod/Tazobactam (Sod 3.375 gm/ Sodium Chloride) 100 mls @ 25 mls/hr IVPB Q8HR [facility] Stop: 05/27/19 16:01 Last Admin: 11/28/18 07:44 Dose: 25 mls/hr Vancomycin HCl 1,000 mg/ (Sodium Chloride) 250 mls @ 167 mls/hr IVPB Q12H [facility]; Protocol Stop: 05/28/19 15:01 Last Infusion: 11/28/18 05:26 Dose: Infused Acetylcysteine 6,800 mg/ (Dextrose) 1,034 mls @ 64.8 mls/hr IVC ONCE ONE Stop: 11/28/18 13:27 Last Admin: 11/27/18 23:35 Dose: 64.8 mls/hr Methylprednisolone (Solu-Medrol) 60 mg IVP TID [facility] Stop: 05/27/19 09:01 Last Admin: 11/28/18 07:44 Dose: 60 mg Metoprolol Tartrate (Lopressor) 12.5 mg PO BID [facility] Stop: 05/28/19 10:31 Last Admin: 11/28/18 07:53 Dose: Not Given Metoprolol Tartrate (Lopressor) 2.5 mg IVP Q6HR [facility] Stop: 05/29/19 12:01 Last Admin: 11/28/18 05:11 Dose: 2.5 mg - Imaging and Cardiology Echo: report reviewed Other Results: 12 hour tele: avg HR 110 afib. - EKG Interpretation EKG results cardiology: personally reviewed Consult Discharge Plan - Plan [facility]Primary Care Provider[facility] -
[2018-11-28] MEDS ORDERED: *HR* LORazepam 2 MG/ML VIAL IVP PRN (11:02)
[2018-11-28] MEDS ORDERED: Glycopyrrolate 0.2 MG/ML VIAL IVP PRN (11:03)
--- NOTE | 2018-11-28 11:26 | Pulmonology Progress Note ---
Addendum entered and electronically signed by Gregg Marx MD 11/29/18 12:13: Patient has worsening GFR consistent with Acute Kidney Injury Original Note: <Lizbeth Pratt - Last Filed: 11/28/18 14:03> Date of Encounter: 11/28/18 Time of Encounter: 09:00 Assessment and Plan (1) Sepsis Current Visit: Yes Status: Acute Patient presented from [place] with sirs criteria of white blood cells 26.5, tachycardic, and lactate 11.7. Chest x-ray showed bilateral lung infiltrates possible pleural effusion. Blood cultures positive for strep pneumonia bacteremia. Repeat cultures pending Respiratory panel positive for mcfadden virus pneumonia Today, SIRS criteria met include white blood cell count 21, heart rate 124, respiratory rate 34 Lactic acidosis continues to increase, lactate currently at 10. Vancomycin and Zosyn hepatocystic discontinued. Started 2 g Rocephin every 24 hours. Discussed plan of care with family, they state that the patient would not want aggressive life-saving measures such as chest compressions or intubation. Palliative team has been consulted. Patient has transitioned to DNR CC Qualifiers: Sepsis type: sepsis due to unspecified organism Qualified Code(s): A41.9 - Sepsis, unspecified organism (2) Pneumonia Current Visit: No Status: Acute Chest x-ray positive for bilateral lung infiltrates Respiratory panel positive for mcfadden virus The blood culture positive for strep pneumonia Continue Rocephin as antibiotic Decreased steroids to 40 mg every 12. Continue DuoNeb and supplemental oxygen. Qualifiers: Pneumonia type: due to unspecified organism Laterality: unspecified laterality Lung location: unspecified part of lung Qualified Code(s): J18.9 - Pneumonia, unspecified organism (3) CHF exacerbation Current Visit: No Status: Acute History of congestive heart failure, new onset ejection fraction 25% Consider demand ischemia, high output heart failure secondary to anemia, diastolic CHF exacerbation. BNP on presentation 2813 Troponins were elevated at 5.53, 3.59, 2.23, continue to trend downwards. Have given Lasix for diuresis, correct fluid overload and to improve dyspnea Continue comfort care Qualifiers: Heart failure type: systolic Qualified Code(s): I50.23 - Acute on chronic systolic (congestive) heart failure (4) Coronary artery disease Current Visit: No Status: Chronic History of CABG in 2014 Denies chest pain. Upon presentation troponins were elevated, EKG was unchanged from previous. Tr oponin has trended downwards. Elevated troponin most likely secondary to demand ischemia in the setting of sepsis Continue aspirin Qualifiers: Coronary Disease-Associated Artery/Lesion type: [place] artery [place] vs. transplanted heart: [place] heart Associated angina: without angina Qualified Code(s): I25.10 - Atherosclerotic heart disease of [place] coronary artery without angina pectoris (5) Atrial fibrillation with RVR Current Visit: Yes Status: Acute Patient found to be in A. fib with RVR Patient remains tachycardic at heart rate 124 and irregular rhythm Possibly new onset secondary to sepsis, CHF exacerbation, anemia Currently on metoprolol 2.5 every 6 hours Heparin drip has been discontinued as he has transitioned to comfort care. (6) Anemia Current Visit: Yes Status: Acute Hemoglobin [facility] was 9.5. History of GI bleeds previously however EGD previously was negative for any bleeding Hemoglobin continued to decrease here Has been given 1 unit of packed red blood cells Hemoglobin initially increased to 10.7, however today continues to decrease again currently at 8.9. Qualifiers: Anemia type: unspecified type Qualified Code(s): D64.9 - Anemia, unspecified (7) Elevated transaminase level Current Visit: Yes Status: Acute AST 901, ALT greater than 500, total bilirubin 2.7, direct bilirubin 1.9, PT 42.6, INR 3.8 Acute liver failure vs shock liver vs acute/chronic cholecystitis vs hepatic artery thrombosis Liver U/S showed no portal vein thrombosis, however hepatic artery was not visualized due to overlying bowel gas HIDA scan was planned for today, however patient is too unstable to undergo study. Abdominal CT revealed gallbladder sludge, gallbladder wall thickening which suggests acute versus chronic cholecystitis. Patient denies any pain in the right upper quadrant. N-acetylcysteine was given in an effort to preserve and protect hepatocytes Surgery was consulted for further evaluation, GI was also consulted for further evaluation. However after speaking to the patients family, the decision was made by family to transition patient to comfort care and continue supportive measures. Consults were canceled. (8) Coagulopathy Current Visit: Yes Status: Acute INR has increased to 3.8. He was on heparin drip after new onset atrial fibrillation with RVR Heparin drip has been discontinued at this point 10 mg vitamin K has been given Continue comfort care. (9) Metabolic encephalopathy Current Visit: Yes Status: Acute Suspect that this is secondary to sepsis, heart failure, anemia, and worsening hepatic function Mentation continues to decline today Lactic acidosis continues to increase Liver function continues to decline Subjective Principal diagnosis: Bilateral PNA, sepsis Interval history: Buddy Santoyo is a 68-year-old male currently day 4 in ICU. Past medical history COPD, status post CABG, diabetes mellitus, anemia, history of GI bleed, and CHF. Currently has sepsis, CHF exacerbation, elevated troponins, NSTEMI, strep pneumonia bacteremia, mcfadden virus pneumonia as well as acute liver failure. He has significantly declined over night, a femoral line was placed. Chest, abdominal, and pelvis CT revealed edema versus pneumonia with enlarged me diastinal lymph nodes either congestive or reactive. Also showed high density material in the gallbladder lumen such as gallbladder sludge as well as gallbladder wall thickening and suggestive of acute or chronic cholecystitis. Also present were multiple thoracic and lumbar compression fractures of indeterminate age. Liver ultrasound was performed which showed no evidence of portal vein thrombosis, however hepatic artery was not visualized due to overlying bowel gas. Liver function has continued to decline overnight most significant for AST 901, ALT greater than 500, INR 3.8, total bilirubin 2.7, direct bilirubin 1.9. Lactic acidosis is increasing currently at 10. White blood cell count has increased to 21. Hemoglobin has dropped to 8.9. Discussed plans of care with sister, Natasha Alvarado who lives in [place]. She states that he would not want aggressive life-saving measures taken on his path and she changed CODE STATUS to DNR CC. Palliative service was consulted. Objective PUL Vital signs: Last Vital Signs Temp 97.7 F 11/28/18 08:00 Pulse 102 11/28/18 09:00 Resp 20 11/28/18 09:00 BP 100/55 11/28/18 09:00 Pulse Ox 99 11/28/18 09:00 Gen.: Vitals noted. In moderate respiratory distress. AAOx2. HEENT: Scleral icterus present. PERRL/EOMI, oropharynx clear, Normocephalic, atraumatic, MMM Neck: Supple. No adenopathy. Trachea midline Cardiac: Tachycardic, irregular rhythm, no murmur, +S1/S2, No BLE edema, upper extremities have 2+ pulses and capillary refill less than 2 seconds. Lower extremities have 1+ dorsal pedis pulses and less than 2 seconds capillary refill. Pulmonary: Bilateral rhonchi, equal chest expansion, mild use of accessory muscles Abdomen: soft, nontender, BS decreased, no guarding, no palpable HSM Back: Nontender throughout, kyphosis present. Skin: No visible lesions. Lower extremities cool to touch. MSK: No joint swelling noted, gait no assessed while in bed. Non tender calf or clubbing Neuro: A&Ox2, moves all extremities, no focal deficits, sensation intact, CN 2 through 12 grossly intact Psych: Anxious Lines: Peripheral IV lines intact, dressings clear, no erythema. New femoral line in place, intact, no erythema. Results - Laboratory Findings CBC and BMP: 11/28/18 01:47 11/28/18 01:47 ABG ABG pH 7.27 pH Units (7.32-7.45) L 11/28/18 03:38 ABG pCO2 50 mmHg (35-45) H 11/28/18 03:38 ABG pO2 131 mmHg (85-104) H 11/28/18 03:38 ABG O2 Saturation 98 % (95-98) 11/28/18 03:38 PT/INR, D-dimer PT 42.6 Seconds (9.4-12.1) H 11/28/18 01:47 Abnormal lab findings: Abnormal lab results WBC 21.0 K/mcL (4.3-11.1) H 11/28/18 01:47 RBC 3.75 M/mcL (4.19-5.50) L 11/28/18 01:47 Hgb 8.9 g/dL (12.9-16.9) L D 11/28/18 01:47 Hct 31.1 % (37.5-50.1) L 11/28/18 01:47 MCV 82.9 fL (83.0-100.0) L 11/28/18 01:47 MCH 23.7 pg (28.0-33.3) L 11/28/18 01:47 MCHC 28.6 g/dL (31.6-35.5) L 11/28/18 01:47 RDW 16.8 % (11.5-14.5) H 11/28/18 01:47 Plt Count 139 K/mcL (140-400) L 11/28/18 01:47 Band Neutrophils % 20.0 % (0-4) H 11/28/18 01:47 Neutrophils # 18.5 K/mcL (1.6-8.9) H 11/28/18 01:47 Monocytes # 1.7 K/mcL (0.0-1.3) H 11/28/18 01:47 Nucleated RBCs/100 WBC 1.7 /100 WBC (0) H 11/28/18 01:47 Platelet Estimate Slight Decrease (Normal) L 11/28/18 01:47 Hypochromasia Present (Not Present) A 11/28/18 01:47 Anisocytosis 1+ (Not Present) A 11/26/18 03:30 Ovalocytes 1+ (Not Present) A 11/26/18 03:30 PT 42.6 Seconds (9.4-12.1) H 11/28/18 01:47 ABG pH 7.27 pH Units (7.32-7.45) L 11/28/18 03:38 ABG pCO2 50 mmHg (35-45) H 11/28/18 03:38 ABG pO2 131 mmHg (85-104) H 11/28/18 03:38 ABG Base Excess -4 mEq/L (-2 to 3) L 11/28/18 03:38 Sodium 135 mEq/L (136-145) L 11/28/18 01:47 Chloride 92 mEq/L (98-107) L 11/28/18 01:47 Carbon Dioxide 22 mEq/L (23-29) L 11/28/18 01:47 BUN 61 mg/dL (8-23) H 11/28/18 01:47 Est GFR (Non-Af Amer) 55 (> 60) L 11/28/18 01:47 BUN/Creatinine Ratio 47 (6-26) H 11/28/18 01:47 Glucose 237 mg/dL (70-105) H 11/28/18 01:47 POC Glucose 130 mg/dL (70-99) H 11/26/18 17:12 Calculated Osmolality 305 (280-300) H 11/28/18 01:47 Lactic Acid 10.0 mmol/L (0.5-2.2) H* 11/28/18 07:58 Calcium 8.3 mg/dL (8.6-10.3) L 11/28/18 01:47 Total Bilirubin 2.7 mg/dL (0.3-1.0) H 11/28/18 01:47 Direct Bilirubin 1.9 mg/dL (0.0-0.2) H 11/28/18 01:47 AST 901 Units/L (13-39) H 11/28/18 01:47 ALT > 500 Units/L (7-52) H 11/28/18 01:47 Troponin I 2.23 ng/mL (< 0.04) H* 11/27/18 10:44 B-Natriuretic Peptide 2813 pg/mL (Less than 100) H 11/25/18 09:22 Serum Total Protein 5.6 g/dL (6.4-8.9) L 11/25/18 17:23 Albumin 3.1 g/dL (3.5-5.7) L 11/25/18 17:23 Vancomycin Trough 16 mcg/mL (5-10) H 11/28/18 01:47 Coronavirus OC43 (PCR) DETECTED (Not Detect) A 11/25/18 21:30 - Microbiology Findings Microbiology Findings: Microbiology, Last 48 Hours 11/27/18 09:29 Blood Culture - Preliminary Peripheral Venipuncture Culture is incubating and being continuously monitored for growth. Final report to follow. 11/27/18 09:23 Blood Culture - Preliminary Peripheral Venipuncture Culture is incubating and being continuously monitored for growth. Final report to follow. 11/25/18 18:05 Urine Culture - Final Urine,Clean Catch No growth. - Clinical Findings Intake & Output: Intake & Output 11/27/18 11/28/18 11/28/18 23:59 07:59 15:59 Intake Total 1448 / 1448 405 / 405 Output Total 800 / 800 475 / 475 100 / 100 Balance 648 / 648 -70 / -70 -100 / -100 Weight 69.7 kg Consult Discharge Plan - Plan [facility] Provider[facility] - <Gregg Marx - Last Filed: 11/28/18 23:39> Date of Encounter: 11/28/18 Objective PUL Vital signs: Last Vital Signs Temp 97.1 F L 11/28/18 23:00 Pulse 99 11/28/18 23:00 Resp 16 11/28/18 23:00 BP 88/45 11/28/18 23:00 Pulse Ox 100 11/28/18 23:00 Results - Laboratory Findings CBC and BMP: 11/28/18 01:47 11/28/18 01:47 ABG ABG pH 7.27 pH Units (7.32-7.45) L 11/28/18 03:38 ABG pCO2 50 mmHg (35-45) H 11/28/18 03:38 ABG pO2 131 mmHg (85-104) H 11/28/18 03:38 ABG O2 Saturation 98 % (95-98) 11/28/18 03:38 PT/INR, D-dimer PT 42.6 Seconds (9.4-12.1) H 11/28/18 01:47 Abnormal lab findings: Abnormal lab results WBC 21.0 K/mcL (4.3-11.1) H 11/28/18 01:47 RBC 3.75 M/mcL (4.19-5.50) L 11/28/18 01:47 Hgb 8.9 g/dL (12.9-16.9) L D 11/28/18 01:47 Hct 31.1 % (37.5-50.1) L 11/28/18 01:47 MCV 82.9 fL (83.0-100.0) L 11/28/18 01:47 MCH 23.7 pg (28.0-33.3) L 11/28/18 01:47 MCHC 28.6 g/dL (31.6-35.5) L 11/28/18 01:47 RDW 16.8 % (11.5-14.5) H 11/28/18 01:47 Plt Count 139 K/mcL (140-400) L 11/28/18 01:47 Band Neutrophils % 20.0 % (0-4) H 11/28/18 01:47 Neutrophils # 18.5 K/mcL (1.6-8.9) H 11/28/18 01:47 Monocytes # 1.7 K/mcL (0.0-1.3) H 11/28/18 01:47 Nucleated RBCs/100 WBC 1.7 /100 WBC (0) H 11/28/18 01:47 Platelet Estimate Slight Decrease (Normal) L 11/28/18 01:47 Hypochromasia Present (Not Present) A 11/28/18 01:47 Anisocytosis 1+ (Not Present) A 11/26/18 03:30 Ovalocytes 1+ (Not Present) A 11/26/18 03:30 PT 42.6 Seconds (9.4-12.1) H 11/28/18 01:47 ABG pH 7.27 pH Units (7.32-7.45) L 11/28/18 03:38 ABG pCO2 50 mmHg (35-45) H 11/28/18 03:38 ABG pO2 131 mmHg (85-104) H 11/28/18 03:38 ABG Base Excess -4 mEq/L (-2 to 3) L 11/28/18 03:38 Sodium 135 mEq/L (136-145) L 11/28/18 01:47 Chloride 92 mEq/L (98-107) L 11/28/18 01:47 Carbon Dioxide 22 mEq/L (23-29) L 11/28/18 01:47 BUN 61 mg/dL (8-23) H 11/28/18 01:47 Est GFR (Non-Af Amer) 55 (> 60) L 11/28/18 01:47 BUN/Creatinine Ratio 47 (6-26) H 11/28/18 01:47 Glucose 237 mg/dL (70-105) H 11/28/18 01:47 POC Glucose 130 mg/dL (70-99) H 11/26/18 17:12 Calculated Osmolality 305 (280-300) H 11/28/18 01:47 Lactic Acid 10.0 mmol/L (0.5-2.2) H* 11/28/18 07:58 Calcium 8.3 mg/dL (8.6-10.3) L 11/28/18 01:47 Total Bilirubin 2.7 mg/dL (0.3-1.0) H 11/28/18 01:47 Direct Bilirubin 1.9 mg/dL (0.0-0.2) H 11/28/18 01:47 AST 901 Units/L (13-39) H 11/28/18 01:47 ALT > 500 Units/L (7-52) H 11/28/18 01:47 Troponin I 2.23 ng/mL (< 0.04) H* 11/27/18 10:44 B-Natriuretic Peptide 2813 pg/mL (Less than 100) H 11/25/18 09:22 Serum Total Protein 5.6 g/dL (6.4-8.9) L 11/25/18 17:23 Albumin 3.1 g/dL (3.5-5.7) L 11/25/18 17:23 Vancomycin Trough 16 mcg/mL (5-10) H 11/28/18 01:47 Coronavirus OC43 (PCR) DETECTED (Not Detect) A 11/25/18 21:30 - Microbiology Findings Microbiology Findings: Microbiology, Last 48 Hours 11/27/18 09:29 Blood Culture - Preliminary Peripheral Venipuncture Culture is incubating and being continuously monitored for growth. Final report to follow. 11/27/18 09:23 Blood Culture - Preliminary Peripheral Venipuncture Culture is incubating and being continuously monitored for growth. Final report to follow. - Clinical Findings Intake & Output: Intake & Output 11/28/18 11/28/18 11/28/18 07:59 15:59 23:59 Intake Total 405 / 405 420 / 420 Output Total 475 / 475 150 / 150 200 / 200 Balance -70 / -70 270 / 270 -200 / -200 Weight 69.7 kg - Attending Attestation - Attending Attestation I saw and evaluated this patient and my medical decision-making was reviewed with the Resident Physician. I agree with the documented findings, disposition and treatment plan as described except to the extent set forth below. We independently had [id number] contact with the patient Patient seen and examined at bedside Labs, radiology, chart personally reviewed. Management was reviewed during multidisciplinary critical care rounds. 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 Pulm: Patient has acceptable oxygenation and ventilation patient has acute on chronic systolic heart failure complicated by possible pneumonia. Patient clinical status worsened than yesterday to do diuresis i spoke with patient son and sister patiet will not want Endotracheal intubation Cards: Patient has acute on chronic systolic heart failure most likely due to ischemic cardiomyopathy NSTEMI on heparin drip concern for cardiogenic shock causing this worsening of hepatic failure FEN-GI: Patient has worsening hepatic failure with worsening lactic acidosis . ruled out portal vein Hepatic vein thrombosis to avoid hepatotoxic drugs. To give N-acetylcysteine for hepato-protective effect. Is still consistent with secondary due to congestive hepatomegaly complicated by sepsis. Renal: Labs and output were reviewed worsening creatinine function cardiorenal versus prerenal. ID: To Cover with broad-spectrum antibiotics for pneumonia streptococcus pneumoniae Heme/Onc: Labs reviewed Endo: Glucose Monitored Integ/MSK: Skin Care per routine ICU Nursing Protocol to prevent ulcers. Lines: All lines examined without evidence of infection : Dispo: patient family according to his wishes changed the goals of care to comfort care CODE: DNRCC
[2018-11-28] MEDS ORDERED: cefTRIAXone 2,000 MG in Water for inj. (sterile) 20 ML 20 ML IVP SCH (12:00)
--- NOTE | 2018-11-28 12:27 | Procedure Note ---
Date of procedure: 11/28/18 Pre-op diagnosis: Sepsis with Lactic Acidosis Post-op diagnosis: same Procedure: A time-out was completed verifying correct patient, procedure, site, positioning, and special equipment if applicable. The patient was placed in a dependent position appropriate for central line placement based on the vein to be cannulated. The patients right groin was prepped and draped in sterile fashion. 1% Lidocaine was used to anesthetize the surrounding skin area. A triple lumen 9-[place] Cordis catheter was introduced into the the Right common femoral vein using the Seldinger technique and under ultrasound guidance . The catheter was threaded smoothly over the guide wire and appropriate blood return was obtained. Each lumen of the catheter was evacuated of air and flushed with sterile saline. The catheter was then sutured in place to the skin and a sterile dressing applied. Perfusion to the extremity distal to the point of catheter insertion was checked and found to be adequate. the ICU resident did the procedure . the attending Physician was present for the entire procedure and assisted in critical portions of the Procedure. Was there an daycare assistant present: Yes Manager [place]: Jazmine Bhagat Estimated blood loss (cc): 1 Specimen: none Pathology: none sent Condition: critical Disposition: ICU
--- NOTE | 2018-11-28 14:32 | Palliative - Consult Note ---
<Sammy De Guzman S - Last Filed: 11/28/18 14:23> Date of Encounter: 11/28/18 Time of Encounter: 14:23 - Assessment and Plan (1) Goals of care, counseling/discussion Current Visit: Yes Status: Acute Assessment and plan: Pt is seen at bedside. He is very somnolent and unable to participiate much in conversation. He does follow simple command but appears very lethargic and weak. He shakes his head no and is able to answer "none" when asked about life- prolonging measures. He does NOT want HD, mechanical ventilation, CPR, or means of artificial nutrition. He is extremely adamant about this and we questioned multiple times if he was sure. He also does not want us to contact his son, which we asked multiple times at well. He is apparently estranged from his son and doesn't want us to contact him for medical decision making. His son was in fact contacted by another hospital employee and deferred us to contact the pt's sister. On second evaluation, the pt's brother is at bedside. We had family meeting with the pt brother and pt sister, who is also apparently the mPOA, about the pt wishes. They agree that the pt VERBALLY told them his wishes and that he would NOT want any life prolonging or artificial mechanisms of sustaining life, especially if the outcome is futile as it appears to be with the multiple coexisting medical problems, including s pneumo bacteria, CHF exacerbation, multiorgan failure, liver failure, coagulopathy, and NSTEMI. At that time a DNR- cc form was signed by the pt brother with the sister on the phone. They are agreeable to the plan and have no further questions. At this time, we will begin to turn off heparin drip. Switching abx from vanc/zosyn to ceftriaxone x 2 days, to see if this improves comfort. The pt does have a pansentivie s pneumo bacteremia. Will also decrease amount of testing and labs for pt comfort. At this time, the pt will not benefit from [facility] for NSTEMI. He will be made comfortable in the ICU and will be transferred to floor or hospice service tomorrow. He has lorazepam ordered for anxiety, fentanyl for pain and robinul for secretions. (2) NSTEMI (non-ST elevated myocardial infarction) Current Visit: Yes Status: Acute Assessment and plan: Peak troponin 5.53 Cardiology not to do LHC. Pt to be made comfortable. In the setting of multiorgan failure and multiple medical conditions, the pt is not a good candidate for LHC. (3) Pneumonia Current Visit: No Status: Acute Assessment and plan: S pneumo bacteremia. Pt has not improved with abx tx, has been on vanc and zosyn. CXR on 11/25 showed small left lung base opacity. At this time, we will change the pt to ceftriaxone to cover both the presumed cholecystitis and pansensitive pneumonia. Qualifiers: Pneumonia type: due to unspecified organism Laterality: unspecified laterality Lung location: unspecified part of lung Qualified Code(s): J18.9 - Pneumonia, unspecified organism (4) GI bleed Current Visit: Yes Status: Resolved Qualifiers: GI bleed type/associated pathology: unspecified gastrointestinal hemorrhage type Qualified Code(s): K92.2 - Gastrointestinal hemorrhage, unspecified (5) CHF exacerbation Current Visit: No Status: Acute Assessment and plan: Management per primary. Qualifiers: Heart failure type: systolic Qualified Code(s): I50.23 - Acute on chronic systolic (congestive) heart failure (6) Acute respiratory failure Current Visit: No Status: Acute Assessment and plan: Likely due to pneumonia. Pt does NOT want mechanical ventilation or intubation. Qualifiers: Respiratory failure complication: hypoxia Qualified Code(s): J96.01 - Acute respiratory failure with hypoxia (7) Sepsis Current Visit: Yes Status: Acute Assessment and plan: Secondary to s pneumo bacteremia Meets SIRS criteria for WBC (21), HR (100), RR (28) Lactate of 10 Patient is clinically declining. Has multiorgan failure, including the liver and heart. Creatinine beginning to increase. He has been made DNR-cc and will be made comfortable. Qualifiers: Sepsis type: sepsis due to unspecified organism Qualified Code(s): A41.9 - Sepsis, unspecified organism (8) Elevated transaminase level Current Visit: Yes Status: Acute Assessment and plan: Likely secondary to sepsis and multiorgan failure. T bili 2.7 D bili 2.7 I bili 0.5 ALT >500 AST 901 Continue comfort care measures. (9) Atrial fibrillation with RVR Current Visit: Yes Status: Acute Assessment and plan: Management per primary. (10) Coagulopathy Current Visit: Yes Status: Acute Assessment and plan: Likely secondary to sepsis. (11) Excessive oral secretions Current Visit: Yes Status: Acute Assessment and plan: Robinul 0.2mg ivp q8hr (12) Anxiety Current Visit: Yes Status: Acute Assessment and plan: ativan 1mg q4hr (13) Pain Current Visit: Yes Status: Acute Assessment and plan: fentanyl 25mcg q3hr Palliative-CN HPI - Data of Consult Patient: new to practice Consult date: 11/28/18 Requesting Physician: Aleyda Cheng MD [facility] Care Provider[facility] - Consult Narrative Palliative Care/Comfort Measures: Hospice care Reason for consult: sepsis, liver failure, respiraotry failure History of present illness: Mr. Santoyo is a 68 year old male with PMH of COPD, DM, anemia, CHF, NSTEMI, CAD, GERD, HLD, and hx of CABG. He was admitted from [facility] and initially presented for SOB. Workup in the ER showed lactic acid of 11.[address] showed basilar opacities concerning for pneumonia, for which he r eceived zosyn/vancomycin and levaquin. He was in A fib with RVR, for which he was on heparin drip. He was transferred here to ICU for further workup and evaluation. The pt has since begun to deteriorate clinically and has gone into severe sepsis. He is not responing to abx and labs have begun to show multiorgan failure. The pt had an episode of declining respiratory function this morning and was about to be intubated, however, staff was made aware that the pt didn't wish to have life prolonging measures. He is evaluated at bedside this morning for goals of care discussion and code status. He was very somnolent and struggled to partipicate in the conversation. He does follow simple command but only mumbles or shakes his head yes and no. CC: Aleyda Cheng MD - Time Spent with Patient Time: Total time spent is greater than 50% in coordination of care (as documented) at patient's floor/unit and/or counseling patient: Time with patient: 45 minutes Past Med Surg Social Fam HX - Past Medical History Medical history: COPD, coronary artery disease, diabetes, GERD, hyperlipidemia, hypertension, myocardial infarction Psychiatric history: depression, schizophrenia - Past Surgical History Surgical History: coronary bypass (CABG) Additional surgical history: carotidendarterectomy - Social History Smoking Status: Current every day smoker Smokeless Tobacco Status: No Alcohol use: none Drug use: none Medications and Allergies Magnesium Oxide [Magnesium] 400 mg PO BID 09/15/17 [History] amLODIPine [Norvasc] 5 mg PO DAILY 09/15/17 [History] Aspirin Enteric Coated [Aspirin EC] 81 mg PO DAILY tablet. 09/18/17 [Rx] Metoprolol [Lopressor] 25 mg PO BID #60 tablet 09/18/17 [Rx] Albuterol Neb [Proventil Neb] 2.5 mg IH Q6H PRN 11/25/18 [History] Albuterol Sulfate [Albuterol Inhaler] 2 puff IH Q4HR PRN 11/25/18 [History] Furosemide [Lasix] 40 mg PO BID 11/25/18 [History] Omeprazole [PriLOSEC] 20 mg PO DAILY 11/25/18 [History] Potassium Chloride [Klor-Con 10] 20 meq PO DAILY 11/25/18 [History] Sucralfate [Carafate] 1 gm PO TID 11/25/18 [History] Tiotropium [place] [Spiriva Respimat] 2 puff IH DAILY 11/25/18 [History] Allergy/AdvReac Type Severity Reaction Status Date / Time No Known Allergies Allergy Verified 11/25/18 13:21 ROS unobtainable: due to mental status Palliative Care-Exam - Constitutional Vitals: Temp Pulse Resp BP Pulse Ox 97.8 F 89 20 93/50 97 11/28/18 13:20 11/28/18 13:00 11/28/18 13:00 11/28/18 13:00 11/28/18 13:00 General appearance: Present: mild distress, thin - Head Head Exam: Present: atraumatic, normocephalic - Eye Eye exam: Present: scleral icterus - ENT ENT exam: Present: mucous membranes dry - Neck Neck exam: Present: normal inspection - Expanded Neck Exam Neck exam: Absent: tracheal deviation - Respiratory Respiratory exam: Present: accessory muscle use, decreased breath sounds, respiratory distress (mid respiratory distress), rhonchi - Cardiovascular Cardiovascular exam: Present: irregular rhythm, tachycardia - GI/Abdominal Exam GI/Abdominal exam: Present: soft. Absent: distended, firm, guarding, rebound, rigid, tenderness - Extremities Exam Extremities exam: Present: normal capillary refill, pedal edema (1+). Absent: tenderness - Neurological Exam Neurological exam: Present: altered - Psychiatric Psychiatric exam: Present: anxious - Skin Skin exam: Present: intact, normal color Internal Medicine - CN: Reslt - Labs CBC & Chem 7: 11/28/18 01:47 11/28/18 01:47 Labs: Short CBC 11/28/18 Range/Units 01:47 WBC 21.0 H (4.3-11.1) K/mcL Hgb 8.9 L D (12.9-16.9) g/dL Hct 31.1 L (37.5-50.1) % Plt Count 139 L (140-400) K/mcL Neutrophils # 18.5 H (1.6-8.9) K/mcL BMP 11/28/18 01:47 Sodium 135 L Potassium 3.9 Chloride 92 L Carbon Dioxide 22 L BUN 61 H Creatinine 1.30 Glucose 237 H Calcium 8.3 L Liver Function 11/27/18 11/27/18 11/27/18 Range/Units 14:55 14:55 16:38 Total Bilirubin (0.3-1.0) mg/dL Direct Bilirubin (0.0-0.2) mg/dL AST 81 H (13-39) Units/L ALT > 500 H (7-52) Units/L Alkaline Phosphatase 61 (34-104) Units/L 11/27/18 11/28/18 11/28/18 Range/Units 16:38 01:47 01:47 Total Bilirubin 2.4 H 2.7 H (0.3-1.0) mg/dL Direct Bilirubin 1.4 H 1.9 H (0.0-0.2) mg/dL AST (13-39) Units/L ALT (7-52) Units/L Alkaline Phosphatase 58 (34-104) Units/L 11/28/18 Range/Units 01:47 Total Bilirubin (0.3-1.0) mg/dL Direct Bilirubin (0.0-0.2) mg/dL AST 901 H (13-39) Units/L ALT > 500 H (7-52) Units/L Alkaline Phosphatase (34-104) Units/L - ABG Interpretation ABG results: ABG ABG pH 7.27 pH Units (7.32-7.45) L 11/28/18 03:38 ABG pCO2 50 mmHg (35-45) H 11/28/18 03:38 ABG pO2 131 mmHg (85-104) H 11/28/18 03:38 ABG O2 Saturation 98 % (95-98) 11/28/18 03:38 PT/INR, D-dimer PT 42.6 Seconds (9.4-12.1) H 11/28/18 01:47 - Impressions Impressions Chest CT 11/27/18 14:52 IMPRESSION: 1. Parenchymal lung disease which may represent edema or pneumonia. Mildly enlarged mediastinal lymph nodes are likely either congestive or reactive 2. High density material in the gallbladder lumen compatible with gallbladder sludge unless there has been recent contrast study performed in which case hepatic excretion of contrast could cause this. There is gallbladder wall thickening which could be due to acute or chronic cholecystitis 3. Multiple thoracic and lumbar compression fractures of indeterminate age D/ / Fabiano Parnell MD / Fabiano Parnell MD Interpreting Provider: Fabiano Parnell MD Abdomen/Pelvis CT 11/27/18 15:00 IMPRESSION: 1. Parenchymal lung disease which may represent edema or pneumonia. Mildly enlarged mediastinal lymph nodes are likely either congestive or reactive 2. High density material in the gallbladder lumen compatible with gallbladder sludge unless there has been recent contrast study performed in which case hepatic excretion of contrast could cause this. There is gallbladder wall thickening which could be due to acute or chronic cholecystitis 3. Multiple thoracic and lumbar compression fractures of indeterminate age D/ / Fabiano Parnell MD / Fabiano Parnell MD Interpreting Provider: Fabiano Parnell MD Abdomen/Pelvis Ultrasound 11/27/18 21:00 IMPRESSION: No evidence of portal vein thrombosis. Hepatic artery not visualized due to overlying bowel gas. D/ / Brijesh Alves / Brijesh Alves Interpreting Provider: Brijesh Alves Consult Discharge Plan - Plan [facility]errals: [facility] [Primary Care Provider] - Palliative Quality Palliative Quality: Screen for Code Status: Yes, Screen for Goals of Care: Yes, Screen for Pain: Yes, If Pain Regimen Started, Initiate Bowel Regimen: NA, Screen for Nausea/Vomitting: Yes Code Status: 11/25/18 20:00 CODE [Resuscitation Status: Active] [RES] Routine Comment: Resuscitation Status: Full Code 11/28/18 09:25 Resuscitation Status: Active [RES] Routine Comment: Resuscitation Status: DNR-Comfort Care Palliative Scale - Palliative Performance Scale How ambulatory is this patient?: Mainly in bed What is patient's level of activity and evidence of disease?: Unable to do most activity, Extensive disease How much self-care assistance does patient require?: Total care How much oral intake does the patient have?: Minimal to sips What is this patient's level of consciousness?: Full or confusion Palliative Performance Score: 40 % <Connie Mcgregor - Last Filed: 11/28/18 17:10> Date of Encounter: 11/28/18 Palliative-CN HPI - Data of Consult Requesting Physician: Aleyda Cheng MD Primary Care Provider: PCP [place] - Consult Narrative History of present illness: Mr. Santoyo is a 68 year old male CC: Aleyda Cheng MD - Time Spent with Patient Time: Total time spent is greater than 50% in coordination of care (as documented) at patient's floor/unit and/or counseling patient: Palliative Care-Exam - Constitutional Vitals: Temp Pulse Resp BP Pulse Ox 97.0 F L 105 14 107/60 100 11/28/18 16:35 11/28/18 16:00 11/28/18 16:00 11/28/18 16:00 11/28/18 16:00 Internal Medicine - CN: Reslt - Labs CBC & Chem 7: 11/28/18 01:47 11/28/18 01:47 Labs: Short CBC 11/28/18 Range/Units 01:47 WBC 21.0 H (4.3-11.1) K/mcL Hgb 8.9 L D (12.9-16.9) g/dL Hct 31.1 L (37.5-50.1) % Plt Count 139 L (140-400) K/mcL Neutrophils # 18.5 H (1.6-8.9) K/mcL BMP 11/28/18 01:47 Sodium 135 L Potassium 3.9 Chloride 92 L Carbon Dioxide 22 L BUN 61 H Creatinine 1.30 Glucose 237 H Calcium 8.3 L Liver Function 11/27/18 11/27/18 11/28/18 Range/Units 16:38 16:38 01:47 Total Bilirubin 2.4 H (0.3-1.0) mg/dL Direct Bilirubin 1.4 H (0.0-0.2) mg/dL AST (13-39) Units/L ALT (7-52) Units/L Alkaline Phosphatase 61 58 (34-104) Units/L 11/28/18 11/28/18 Range/Units 01:47 01:47 Total Bilirubin 2.7 H (0.3-1.0) mg/dL Direct Bilirubin 1.9 H (0.0-0.2) mg/dL AST 901 H (13-39) Units/L ALT > 500 H (7-52) Units/L Alkaline Phosphatase (34-104) Units/L - ABG Interpretation ABG results: ABG ABG pH 7.27 pH Units (7.32-7.45) L 11/28/18 03:38 ABG pCO2 50 mmHg (35-45) H 11/28/18 03:38 ABG pO2 131 mmHg (85-104) H 11/28/18 03:38 ABG O2 Saturation 98 % (95-98) 11/28/18 03:38 PT/INR, D-dimer PT 42.6 Seconds (9.4-12.1) H 11/28/18 01:47 - Impressions Impressions Abdomen/Pelvis Ultrasound 11/27/18 21:00 IMPRESSION: No evidence of portal vein thrombosis. Hepatic artery not visualized due to overlying bowel gas. D/ / Brijesh Alves / Brijesh Alves Interpreting Provider: Brijesh Alves - Attending Attestation I performed a history and physical examination of the patient and discussed his management with the resident. I reviewed the residents note and agree with the documented findings and plan of care. Pt was tachypneic, and drowsy, following commands, but unable to speak in full sentences. He was unable to follow a full GOC discussion, but when asked about being put on machines for life support he shook his head "no" vigorously and add ed "no machines". We asked him if we could contact his son and he indicated no, he shock his head yes when asked if we can contact his sister and his brother. Palliative care met later with pt's brother Josr Santoyo ([phone]) at the bedside, and with pt's sister Natasha Clark on speaker phone. Natasha stated she had discussed with pt's son Parviz, and that Parviz was more comfortable with her making the decisions. She is too sick to come to the hospital. Both siblings were adamant that per pt's wishes, he would not want any heroic measures to save his life, and that in the current picture of MOF, he would like to be transitioned to comfort measures only. Discussed that we will continue ABX for now and assess daily for the need. Also will discontinue all medication and measures not geared toward comfort. ICU team decided to care for pt for one more day, with he plan to re-evaluate tomorrow for possible transfer to [facility]. [facility] was made aware. Started on Robinul for secretions and fentanyl prn for dyspnea and pain. Ativan for anxiety. Palliative Quality Code Status: 11/25/18 20:00 CODE [Resuscitation Status: Active] [RES] Routine Comment: Resuscitation Status: Full Code 11/28/18 09:25 Resuscitation Status: Active [RES] Routine Comment: Resuscitation Status: DNR-Comfort Care
[2018-11-28] MEDS: MethylPREDNISolone 40 MG/ML VIAL IVP SCH (20:42)
[2018-11-28] MEDS: *HR* FentaNYL (PF) 100 MCG/2 ML VIAL IVP PRN (23:56)
[2018-11-29] MEDS: *HR* FentaNYL (PF) 100 MCG/2 ML VIAL IVP PRN ×2 (03:05→12:17)
[2018-11-29] MEDS: Ipratropium/Albuterol Neb 3 ML IH SCH ×3 (03:56→11:37)
[2018-11-29] MEDS: *HR* Metoprolol 5 MG/5 ML VIAL IVP SCH (06:10)
[2018-11-29] MEDS: MethylPREDNISolone 40 MG/ML VIAL IVP SCH (06:10)
[2018-11-29] MEDS: Aspirin Enteric Coated 81 MG Tablet PO SCH (08:32)
--- NOTE | 2018-11-29 08:34 | Pulmonology Progress Note ---
Date of Encounter: 11/29/18 Time of Encounter: 08:34 Assessment and Plan (1) Sepsis Current Visit: Yes Status: Acute Patient presented from [place] with sirs criteria of white blood cells 26.5, tachycardic, and lactate 11.7. Chest x-ray showed bilateral lung infiltrates possible pleural effusion. Blood cultures positive for strep pneumonia bacteremia. Repeat cultures pending Respiratory panel positive for mcfadden virus pneumonia Today, SIRS criteria met include white blood cell count 21, heart rate 124, respiratory rate 34 Lactic acidosis continues to increase, lactate currently at 10. Vancomycin and Zosyn hepatocystic discontinued. Started 2 g Rocephin every 24 hours. Discussed plan of care with family, they state that the patient would not want aggressive life-saving measures such as chest compressions or intubation. Palliative team has been consulted. Patient has transitioned to DNR CC Qualifiers: Sepsis type: sepsis due to unspecified organism Qualified Code(s): A41.9 - Sepsis, unspecified organism (2) Pneumonia Current Visit: No Status: Acute Chest x-ray positive for bilateral lung infiltrates Respiratory panel positive for mcfadden virus The blood culture positive for strep pneumonia Continue Rocephin as antibiotic Decreased steroids to 40 mg every 12. Continue DuoNeb and supplemental oxygen. Qualifiers: Pneumonia type: due to unspecified organism Laterality: unspecified laterality Lung location: unspecified part of lung Qualified Code(s): J18.9 - Pneumonia, unspecified organism (3) CHF exacerbation Current Visit: No Status: Acute History of congestive heart failure, new onset ejection fraction 25% Consider demand ischemia, high output heart failure secondary to anemia, diastolic CHF exacerbation. BNP on presentation 2813 Troponins were elevated at 5.53, 3.59, 2.23, continue to trend downwards. Have given Lasix for diuresis, correct fluid overload and to improve dyspnea Continue comfort care Qualifiers: Heart failure type: systolic Qualified Code(s): I50.23 - Acute on chronic systolic (congestive) heart failure (4) Coronary artery disease Current Visit: No Status: Chronic History of CABG in 2013 Denies chest pain. Upon presentation troponins were elevated, EKG was unchanged from previous. Troponin has trended downwards. Elevated troponin most likely secondary to demand ischemia in the setting of sepsis Continue aspirin Qualifiers: Coronary Disease-Associated Artery/Lesion type: [place] artery [place] vs. transplanted heart: [place] heart Associated angina: without angina Qualified Code(s): I25.10 - Atherosclerotic heart disease of [place] coronary artery without angina pectoris (5) Atrial fibrillation with RVR Current Visit: Yes Status: Acute Patient found to be in A. fib with RVR Patient remains tachycardic at heart rate 124 and irregular rhythm Possibly new onset secondary to sepsis, CHF exacerbation, anemia Currently on metoprolol 2.5 every 6 hours Heparin drip has been discontinued as he has transitioned to comfort care. (6) Anemia Current Visit: Yes Status: Acute Hemoglobin [facility] was 9.5. History of GI bleeds previously however EGD previously was negative for any bleeding Hemoglobin continued to decrease here Has been given 1 unit of packed red blood cells Hemoglobin initially increased to 10.7, however today continues to decrease again currently at 8.9. Qualifiers: Anemia type: unspecified type Qualified Code(s): D64.9 - Anemia, unspecified (7) Elevated transaminase level Current Visit: Yes Status: Acute AST 901, ALT greater than 500, total bilirubin 2.7, direct bilirubin 1.9, PT 42.6, INR 3.8 Acute liver failure vs shock liver vs acute/chronic cholecystitis vs hepatic artery thrombosis Liver U/S showed no portal vein thrombosis, however hepatic artery was not visualized due to overlying bowel gas HIDA scan was planned for today, however patient is too unstable to undergo study. Abdominal CT revealed gallbladder sludge, gallbladder wall thickening which suggests acute versus chronic cholecystitis. Patient denies any pain in the r ight upper quadrant. N-acetylcysteine was given in an effort to preserve and protect hepatocytes Surgery was consulted for further evaluation, GI was also consulted for further evaluation. However after speaking to the patients family, the decision was made by family to transition patient to comfort care and continue supportive measures. Consults were canceled. (8) Coagulopathy Current Visit: Yes Status: Acute INR has increased to 3.8. He was on heparin drip after new onset atrial fibrillation with RVR Heparin drip has been discontinued at this point 10 mg vitamin K has been given Continue comfort care. (9) Metabolic encephalopathy Current Visit: Yes Status: Acute Suspect that this is secondary to sepsis, heart failure, anemia, and worsening hepatic function Mentation continues to decline today Lactic acidosis continues to increase Liver function continues to decline Subjective Principal diagnosis: Bilateral PNA, sepsis Interval history: Buddy Santoyo is a 68-year-old male currently day 4 in ICU. Past medical history COPD, status post CABG, diabetes mellitus, anemia, history of GI bleed, and CHF. Currently has sepsis, CHF exacerbation, elevated troponins, NSTEMI, st rep pneumonia bacteremia, mcfadden virus pneumonia as well as acute liver failure. He has significantly declined over night, a femoral line was placed. Chest, abdominal, and pelvis CT revealed edema versus pneumonia with enlarged mediastinal lymph nodes either congestive or reactive. Also showed high density material in the gallbladder lumen such as gallbladder sludge as well as gallbladder wall thickening and suggestive of acute or chronic cholecystitis. Also present were multiple thoracic and lumbar compression fractures of indeterminate age. Liver ultrasound was performed which showed no evidence of portal vein thrombosis, however hepatic artery was not visualized due to overlying bowel gas. Liver function has continued to decline overnight most significant for AST 901, ALT greater than 500, INR 3.8, total bilirubin 2.7, direct bilirubin 1.9. Lactic acidosis is increasing currently at 10. White blood cell count has increased to 21. Hemoglobin has dropped to 8.9. Discussed plans of care with sister, Natasha Alvarado who lives in [place]. She states that he would not want aggressive life-saving measures taken on his path and she changed CODE STATUS to DNR CC. Palliative service was consulted. Objective PUL Vital signs: Last Vital Signs Temp 97.2 F L 11/29/18 08:17 Pulse 119 11/29/18 07:00 Resp 23 11/29/18 07:00 BP 95/60 11/29/18 07:00 Pulse Ox 97 11/29/18 07:00 Results - Laboratory Findings CBC and BMP: 11/28/18 01:47 11/28/18 01:47 ABG ABG pH 7.27 pH Units (7.32-7.45) L 11/28/18 03:38 ABG pCO2 50 mmHg (35-45) H 11/28/18 03:38 ABG pO2 131 mmHg (85-104) H 11/28/18 03:38 ABG O2 Saturation 98 % (95-98) 11/28/18 03:38 PT/INR, D-dimer PT 42.6 Seconds (9.4-12.1) H 11/28/18 01:47 Abnormal lab findings: Abnormal lab results WBC 21.0 K/mcL (4.3-11.1) H 11/28/18 01:47 RBC 3.75 M/mcL (4.19-5.50) L 11/28/18 01:47 Hgb 8.9 g/dL (12.9-16.9) L D 11/28/18 01:47 Hct 31.1 % (37.5-50.1) L 11/28/18 01:47 MCV 82.9 fL (83.0-100.0) L 11/28/18 01:47 MCH 23.7 pg (28.0-33.3) L 11/28/18 01:47 MCHC 28.6 g/dL (31.6-35.5) L 11/28/18 01:47 RDW 16.8 % (11.5-14.5) H 11/28/18 01:47 Plt Count 139 K/mcL (140-400) L 11/28/18 01:47 Band Neutrophils % 20.0 % (0-4) H 11/28/18 01:47 Neutrophils # 18.5 K/mcL (1.6-8.9) H 11/28/18 01:47 Monocytes # 1.7 K/mcL (0.0-1.3) H 11/28/18 01:47 Nucleated RBCs/100 WBC 1.7 /100 WBC (0) H 11/28/18 01:47 Platelet Estimate Slight Decrease (Normal) L 11/28/18 01:47 Hypochromasia Present (Not Present) A 11/28/18 01:47 Anisocytosis 1+ (Not Present) A 11/26/18 03:30 Ovalocytes 1+ (Not Present) A 11/26/18 03:30 PT 42.6 Seconds (9.4-12.1) H 11/28/18 01:47 ABG pH 7.27 pH Units (7.32-7.45) L 11/28/18 03:38 ABG pCO2 50 mmHg (35-45) H 11/28/18 03:38 ABG pO2 131 mmHg (85-104) H 11/28/18 03:38 ABG Base Excess -4 mEq/L (-2 to 3) L 11/28/18 03:38 Sodium 135 mEq/L (136-145) L 11/28/18 01:47 Chloride 92 mEq/L (98-107) L 11/28/18 01:47 Carbon Dioxide 22 mEq/L (23-29) L 11/28/18 01:47 BUN 61 mg/dL (8-23) H 11/28/18 01:47 Est GFR (Non-Af Amer) 55 (> 60) L 11/28/18 01:47 BUN/Creatinine Ratio 47 (6-26) H 11/28/18 01:47 Glucose 237 mg/dL (70-105) H 11/28/18 01:47 POC Glucose 130 mg/dL (70-99) H 11/26/18 17:12 Calculated Osmolality 305 (280-300) H 11/28/18 01:47 Lactic Acid 10.0 mmol/L (0.5-2.2) H* 11/28/18 07:58 Calcium 8.3 mg/dL (8.6-10.3) L 11/28/18 01:47 Total Bilirubin 2.7 mg/dL (0.3-1.0) H 11/28/18 01:47 Direct Bilirubin 1.9 mg/dL (0.0-0.2) H 11/28/18 01:47 AST 901 Units/L (13-39) H 11/28/18 01:47 ALT > 500 Units/L (7-52) H 11/28/18 01:47 Troponin I 2.23 ng/mL (< 0.04) H* 11/27/18 10:44 B-Natriuretic Peptide 2813 pg/mL (Less than 100) H 11/25/18 09:22 Serum Total Protein 5.6 g/dL (6.4-8.9) L 11/25/18 17:23 Albumin 3.1 g/dL (3.5-5.7) L 11/25/18 17:23 Vancomycin Trough 16 mcg/mL (5-10) H 11/28/18 01:47 Coronavirus OC43 (PCR) DETECTED (Not Detect) A 11/25/18 21:30 - Microbiology Findings Microbiology Findings: Microbiology, Last 48 Hours 11/27/18 09:29 Blood Culture - Preliminary Peripheral Venipuncture Culture is incubating and being continuously monitored for growth. Final report to follow. 11/27/18 09:23 Blood Culture - Preliminary Peripheral Venipuncture Culture is incubating and being continuously monitored for growth. Final report to follow. - Clinical Findings Intake & Output: Intake & Output 11/28/18 11/29/18 11/29/18 23:59 07:59 15:59 Output Total 200 / 200 100 / 100 150 / 150 Balance -200 / -200 -100 / -100 -150 / -150 Weight 71 kg Consult Discharge Plan - Plan [facility]errals: [facility] [Primary Care Provider[facility] -
[2018-11-29] MEDS ORDERED: Furosemide 40 MG/4 ML VIAL ONE (09:08)
[2018-11-29] MEDS ORDERED: Furosemide 40 MG/4 ML VIAL IVP ONE (09:17)
--- NOTE | 2018-11-29 11:26 | Discharge Summary ---
<Lizbeth Pratt - Last Filed: 11/29/18 11:59> Orders not resulted at time of discharge: Pending orders 11/27/18 09:29 Culture,Blood [BC] Stat Date of Encounter: 11/29/18 Time of Encounter: 10:00 - Discharge Diagnosis (1) Sepsis Priority: Primary Status: Acute Qualifiers: Sepsis type: sepsis due to unspecified organism Qualified Code(s): A41.9 - Sepsis, unspecified organism (2) Pneumonia Priority: Primary Status: Acute Qualifiers: Pneumonia type: due to unspecified organism Laterality: unspecified laterality Lung location: unspecified part of lung Qualified Code(s): J18.9 - Pneumonia, unspecified organism (3) CHF exacerbation Priority: Secondary Status: Acute Qualifiers: Heart failure type: systolic Qualified Code(s): I50.23 - Acute on chronic systolic (congestive) heart failure (4) Coronary artery disease Priority: Secondary Status: Chronic Qualifiers: Coronary Disease-Associated Artery/Lesion type: [place] artery [place] vs. transplanted heart: [place] heart Associated angina: without angina Qualified Code(s): I25.10 - Atherosclerotic heart disease of [place] coronary artery without angina pectoris (5) Atrial fibrillation with RVR Priority: Secondary Status: Acute (6) Anemia Priority: Secondary Status: Acute Qualifiers: Anemia type: unspecified type Qualified Code(s): D64.9 - Anemia, unspecified (7) Elevated transaminase level Priority: Secondary Status: Acute (8) Coagulopathy Priority: Secondary Status: Acute (9) Metabolic encephalopathy Priority: Secondary Status: Acute - Discharge Medications Allergies/Adverse Reactions: Allergy/AdvReac Type Severity Reaction Status Date / Time No Known Allergies Allergy Verified 11/25/18 13:21 Labs on day of discharge: Preliminary micro results at discharge 11/27/18 09:29 Blood Culture - Preliminary Peripheral Venipuncture Culture is incubating and being continuously monitored for growth. Final report to follow. 11/27/18 09:23 Blood Culture - Preliminary Peripheral Venipuncture Culture is incubating and being continuously monitored for growth. Final report to follow. - Impressions ITS Impressions Chest X-Ray 11/25/18 07:51 IMPRESSION: Bilateral lung infiltrates with some volume loss, left lung base, and probable small pleural effusions. The findings likely reflect congestive heart failure. D/ / 11/25/2018 08:39:28 Juaquin Farr MD / [place] Interpreting Provider: Juaquin Farr MD X-Ray 11/25/18 08:47 IMPRESSION: Nonobstructive bowel gas pattern D/ / 11/25/2018 09:23:31 Aguila Sanchez MD / karlie Interpreting Provider: Aguila Sanchez MD Echocardiogram 11/25/18 09:41 Impressions: LVEF 25%. Mildly dilated left ventricle. Severe global left ventricular systolic dysfunction. Indeterminate diastolic function. Atypical septal motion consistent with post-operative status. Normal right ventricular structure and function. Severely dilated left atrium. Mild to moderately calcified aortic valve leaflets. Moderate aortic stenosis. Mean gradient 21 mmHg. Mild-moderate aortic regurgitation. Moderate mitral annular calcification. Mild to moderate mitral regurgitation. Mild mitral stenosis suggested by Doppler. Mean gradient 6 mmHg (HR 101). Mild pulmonary hypertension. Estimated RVSP is 41 mmHg. Left Ventricular Wall Motion: Rest Echo Findings The apex, apical inferior, mid inferior, basal inferior, apical anterior, mid anterior, basal anterior, apical septal, mid inferior septal, basal inferior septal, apical lateral, mid anterior lateral, basal anterior lateral, mid anterior septal, mid inferior lateral, basal anterior septal and basal inferior lateral be were hypokinetic. Findings: Study Quality * Technically adequate exam. ECG Findings * Atrial fibrillation, BBB, RVR. Left Ventricle * LVEF 25%. * Mildly dilated left ventricle. * Severe global left ventricular systolic dysfunction. * Indeterminate diastolic function. * Atypical septal motion consistent with post-operative status. Right Ventricle * Normal right ventricular structure and function. Left Atrium * Severely dilated left atrium. Right Atrium * Mildly dilated right atrium. Aortic Valve * Mild to moderately calcified aortic valve leaflets. * Mild-moderate aortic regurgitation. * Moderate aortic stenosis. Mean gradient 21 mmHg. Mitral Valve * Moderate mitral annular calcification. * Mild-moderate mitral regurgitation. * Mild mitral stenosis suggested by Doppler. Mean gradient 6 mmHg (HR 101). * Mildly thickened mitral valve leaflets. Tricuspid Valve * Normal tricuspid valve structure and function. * Trace tricuspid regurgitation. * Mild pulmonary hypertension. * Estimated RVSP is 41 mmHg. * Estimated RA pressure is 10 mmHg. Pulmonic Valve * Pulmonic valve not well visualized. * No pulmonic regurgitation. Aorta * Normally sized aortic root. Pericardium * The pericardium appears normal. IVC * The IVC is dilated. * > 50% respiratory change Pulmonary Artery * Pulmonary artery not well visualized. Chest X-Ray 11/25/18 14:36 IMPRESSION: Mild pulmonary edema is slightly improved. Small left lung base opacity is unchanged. D/ / 11/25/2018 15:08:26 Mc Mendes MD / earnold Interpreting Provider: Mc Mendes MD Abdomen Ultrasound 11/27/18 08:00 IMPRESSION: 1. Small amount of gallbladder sludge with distended gallbladder and pericholecystic fluid. Findings raise the possibility of acute cholecystitis in the appropriate clinical setting. HIDA scan could be considered. 2. No biliary dilation. D/ : / 11/27/2018 09:41:58 Lionel Camargo MD / ebce Interpreting Provider: Lionel Camargo MD Chest CT 11/27/18 14:52 IMPRESSION: 1. Parenchymal lung disease which may represent edema or pneumonia. Mildly enlarged mediastinal lymph nodes are likely either congestive or reactive 2. High density material in the gallbladder lumen compatible with gallbladder sludge unless there has been recent contrast study performed in which case hepatic excretion of contrast could cause this. There is gallbladder wall thickening which could be due to acute or chronic cholecystitis 3. Multiple thoracic and lumbar compression fractures of indeterminate age D/ / Fabiano Parnell MD / Fabiano Parnell MD Interpreting Provider: Fabiano Parnell MD Abdomen/Pelvis CT 11/27/18 15:00 IMPRESSION: 1. Parenchymal lung disease which may represent edema or pneumonia. Mildly enlarged mediastinal lymph nodes are likely either congestive or reactive 2. High density material in the gallbladder lumen compatible with gallbladder sludge unless there has been recent contrast study performed in which case hepatic excretion of contrast could cause this. There is gallbladder wall thickening which could be due to acute or chronic cholecystitis 3. Multiple thoracic and lumbar compression fractures of indeterminate age D/ / Fabiano Parnell MD / Fabiano Parnell MD Interpreting Provider: Fabiano Parnell MD Abdomen/Pelvis Ultrasound 11/27/18 21:00 IMPRESSION: No evidence of portal vein thrombosis. Hepatic artery not visualized due to overlying bowel gas. D/ / Brijesh Alves / Brijesh Alves Interpreting Provider: Brijesh Alves Date of admission: 11/25/18 07:17 Primary care physician: PCP JEANNE Consults: 11/25/18 14:00 Consult to Cardiology [CONS] Routine Comment: Consulting Provider: Cardiology [place] Reason for Consult: afib RVR Call Completed: Yes 11/27/18 10:02 Consult to Nurse Navigator [CONS] Routine Comment: pneumonia 11/28/18 09:26 Consult to Palliative Care [CONS] Routine Comment: Consulting Provider: [facility]iative [facility] [place] Reason for Consult: Sepsis, Liver failure, Respiratory failure, CHF Call Completed: Yes Discharging clinician: Lizbeth Pratt Anticipated date of discharge: 11/29/18 - Patient Status Disposition: Hospice - Medical Facility Condition: Critical Functional capacity at discharge: bed bound Overall status at discharge: patient is not back to baseline - Discharge Instructions [facility] Up With: [facility] [Primary Care Provider] - - Diet and Activity Activity: other (Remain bedbound) Diet: other (Nothing by mouth) - Hospital Course Hospital course: Mr. Santoyo is a 68 year old male who presented on 11/25/2018 via EMS from [facility] with increasing shortness of breath. He was found to have elevated troponins, leukocytosis, anemia, elevated LFTs, lactic acidosis. He h as a past medical history of coronary artery disease, COPD, diabetes, anemia, CHF. Chest x-ray was performed which showed basilar opacities with concerns for pneumonia. He was found to be in septic shock and started on Zosyn and vancomycin and Levaquin. He was having congestive heart failure exacerbation most likely secondary to the pneumonia and sepsis and went into atrial fibrillation with RVR and started on heparin drip. NSTEMI versus demand ischemia suspect that the cause of elevated troponins. Cardiology was consulted for management of the heparin drip, atrial fibrillation with RVR, and CHF exacerbation. Echo revealed new onset decrease in left ventricular ejection fraction at 25%. Respiratory panel was positive for coronavirus, blood culture positive for Streptococcus pneumonia. Liver function continued to decline, and a CT abdomen and pelvis was performed. The CT revealed acute versus chronic cholecystitis. A hepatic ultrasound was performed to rule out hepatic artery thrombosis or portal vein thrombosis. A HIDA scan was planned, however patient was too unstable to undergo the study. N-acetylcysteine was given an effort to protect her remaining liver function the patient had remaining, however he continued to progress to acute liver failure. Surgery service and GI service were both consulted however patient and family declined further aggressive life- saving measures. Patient will be discharged to inpatient hospice once a bed becomes available for continued comfort care. - Time Spent with Patient Total time spent providing and/or coordinating discharge services: Greater than 30 minutes (33 minutess) Physical Examination Vital Signs: Vital Signs, Last 4 Hours Temp Pulse Resp BP Pulse Ox 11/29/18 10:00 120 21 88/58 100 11/29/18 09:00 120 23 85/62 100 11/29/18 08:17 97.2 F L 11/29/18 08:02 20 100 11/29/18 08:00 118 22 94/63 100 Gen.: Vitals noted. AAOx3, mild respiratory distress. HEENT: Scleral icterus present PERRL/EOMI, oropharynx clear, Normocephalic, atraumatic, MMM Neck: Supple. No adenopathy. Trachea midline Cardiac: Tachycardic, irregular rate, no murmur, +S1/S2, No BLE edema Pulmonary: Diffuse rhonchi bilaterally, equal chest expansion, accessory muscle use present Abdomen: soft, nontender, BS noted, no guarding, no palpable HSM Back: Nontender throughout. MSK: Gait not assessed while in bed. Non tender calf or clubbing Neuro: Awake, not responsive to commands. Due to level of responsiveness, unable to fully test cranial nerves, or sensation Psych: Awake but not responsive to commands, unable to evaluate <Gregg Marx - Last Filed: 11/29/18 21:07> Orders not resulted at time of discharge: Pending orders 11/27/18 09:29 Culture,Blood [BC] Stat Date of Encounter: 11/29/18 Labs on day of discharge: Preliminary micro results at discharge 11/27/18 09:29 Blood Culture - Preliminary Peripheral Venipuncture Culture is incubating and being continuously monitored for growth. Final report to follow. 11/27/18 09:23 Blood Culture - Preliminary Peripheral Venipuncture Culture is incubating and being continuously monitored for growth. Final report to follow. - Impressions ITS Impressions Chest X-Ray 11/25/18 07:51 IMPRESSION: Bilateral lung infiltrates with some volume loss, left lung base, and probable small pleural effusions. The findings likely reflect congestive heart failure. D/ / 11/25/2018 08:39:28 Juaquin Farr MD / karlie Interpreting Provider: Juaquin Farr MD X-Ray 11/25/18 08:47 IMPRESSION: Nonobstructive bowel gas pattern D/ / 11/25/2018 09:23:31 Aguila Sanchez MD / karlie Interpreting Provider: Aguila Sanchez MD Echocardiogram 11/25/18 09:41 Impressions: LVEF 25%. Mildly dilated left ventricle. Severe global left ventricular systolic dysfunction. Indeterminate diastolic function. Atypical septal motion consistent with post-operative status. Normal right ventricular structure and function. Severely dilated left atrium. Mild to moderately calcified aortic valve leaflets. Moderate aortic stenosis. Mean gradient 21 mmHg. Mild-moderate aortic regurgitation. Moderate mitral annular calcification. Mild to moderate mitral regurgitation. Mild mitral stenosis suggested by Doppler. Mean gradient 6 mmHg (HR 101). Mild pulmonary hypertension. Estimated RVSP is 41 mmHg. Left Ventricular Wall Motion: Rest Echo Findings The apex, apical inferior, mid inferior, basal inferior, apical anterior, mid anterior, basal anterior, apical septal, mid inferior septal, basal inferior septal, apical lateral, mid anterior lateral, basal anterior lateral, mid anterior septal, mid inferior lateral, basal anterior septal and basal inferior lateral be were hypokinetic. Findings: Study Quality * Technically adequate exam. ECG Findings * Atrial fibrillation, BBB, RVR. Left Ventricle * LVEF 25%. * Mildly dilated left ventricle. * Severe global left ventricular systolic dysfunction. * Indeterminate diastolic function. * Atypical septal motion consistent with post-operative status. Right Ventricle * Normal right ventricular structure and function. Left Atrium * Severely dilated left atrium. Right Atrium * Mildly dilated right atrium. Aortic Valve * Mild to moderately calcified aortic valve leaflets. * Mild-moderate aortic regurgitation. * Moderate aortic stenosis. Mean gradient 21 mmHg. Mitral Valve * Moderate mitral annular calcification. * Mild-moderate mitral regurgitation. * Mild mitral stenosis suggested by Doppler. Mean gradient 6 mmHg (HR 101). * Mildly thickened mitral valve leaflets. Tricuspid Valve * Normal tricuspid valve structure and function. * Trace tricuspid regurgitation. * Mild pulmonary hypertension. * Estimated RVSP is 41 mmHg. * Estimated RA pressure is 10 mmHg. Pulmonic Valve * Pulmonic valve not well visualized. * No pulmonic regurgitation. Aorta * Normally sized aortic root. Pericardium * The pericardium appears normal. IVC * The IVC is dilated. * > 50% respiratory change Pulmonary Artery * Pulmonary artery not well visualized. Chest X-Ray 11/25/18 14:36 IMPRESSION: Mild pulmonary edema is slightly improved. Small left lung base opacity is unchanged. D/ / 11/25/2018 15:08:26 Mc Mendes MD / [facility] Interpreting Provider: Mc Mendes MD Abdomen Ultrasound 11/27/18 08:00 IMPRESSION: 1. Small amount of gallbladder sludge with distended gallbladder and pericholecystic fluid. Findings raise the possibility of acute cholecystitis in the appropriate clinical setting. HIDA scan could be considered. 2. No biliary dilation. D/ : / 11/27/2018 09:41:58 Lionel Camargo MD / [place] Interpreting Provider: Lionel Camargo MD Chest CT 11/27/18 14:52 IMPRESSION: 1. Parenchymal lung disease which may represent edema or pneumonia. Mildly enlarged mediastinal lymph nodes are likely either congestive or reactive 2. High density material in the gallbladder lumen compatible with gallbladder sludge unless there has been recent contrast study performed in which case hepatic excretion of contrast could cause this. There is gallbladder wall thickening which could be due to acute or chronic cholecystitis 3. Multiple thoracic and lumbar compression fractures of indeterminate age D/ / Fabiano Parnell MD / Fabiano Parnell MD Interpreting Provider: Fabiano Parnell MD Abdomen/Pelvis CT 11/27/18 15:00 IMPRESSION: 1. Parenchymal lung disease which may represent edema or pneumonia. Mildly enlarged mediastinal lymph nodes are likely either congestive or reactive 2. High density material in the gallbladder lumen compatible with gallbladder sludge unless there has been recent contrast study performed in which case hepatic excretion of contrast could cause this. There is gallbladder wall thickening which could be due to acute or chronic cholecystitis 3. Multiple thoracic and lumbar compression fractures of indeterminate age D/ / Fabiano Parnell MD / Fabiano Parnell MD Interpreting Provider: Fabiano Parnell MD Abdomen/Pelvis Ultrasound 11/27/18 21:00 IMPRESSION: No evidence of portal vein thrombosis. Hepatic artery not visualized due to overlying bowel gas. D/ / Brijesh Alves / Brijesh Alves Interpreting Provider: Brijesh Alves Date of admission: 11/25/18 07:17 Primary care physician: [facility] Consults: 11/25/18 14:00 Consult to Cardiology [CONS] Routine Comment: Consulting Provider: Cardiology [facility] Reason for Consult: afib RVR Call Completed: Yes 11/27/18 10:02 Consult to Nurse Navigator [CONS] Routine Comment: pneumonia 11/28/18 09:26 Consult to Palliative Care [CONS] Routine Comment: Consulting Provider: Palliative Care [place] Reason for Consult: Sepsis, Liver failure, Respiratory failure, CHF Call Completed: Yes - Hospital Course Hospital course: I agree with resident documentation about the hospital course - Time Spent with Patient Total time spent providing and/or coordinating discharge services:
[2018-11-29 12:51] VITALS: BP 111/71
== END 2018-11-29 13:15 | disposition hospice, inpatient (51) | DRG 871 ==
LOC: ICNU 07:17
PROVIDERS: ADMIT Internal Medicine; ATTEND Internal Medicine